=== PATIENT | male | born 1940 | race Caucasian/White ===

== ENCOUNTER 2017-04-14 15:32 | Emergency (ER) | payer OTHER ==
[2017-04-14 15:35] VITALS: Ht 177.8 cm
[2017-04-14] MEDS ORDERED: ONDANSETRON INJ 2 MG/ML 2 ML VIAL IV STA (16:10)
[2017-04-14] MEDS ORDERED: ACETAMINOPHEN 500 MG TAB PO STA (16:10)
[2017-04-14] MEDS ORDERED: KETOROLAC TROMETHAMINE 30 MG/ML VIAL IV STA (16:10)
--- NOTE | 2017-04-14 16:21 | EMERGENCY ROOM VISIT NOTE ---
History Report prepared by Charlie: Oscar Hua Under the Supervision of: Dr. Jose A Romano M.D. First contact with patient: 16:04 Chief Complaint: FLANK PAIN Stated Complaint: LOWER LEFT BACK PAIN History of Present Illness The patient is a 77 year old male who presents to the Emergency Room with complaints of constant lower left back pain that began 13 hours ago when the patient was trying to get out of bed to urinate. He describes the pain as an 8/ 10 in severity. Patient states that the pain is exacerbated when walking and when trying to get up from a seated or lying down position. He denies the pain being worse with pressure. He has associated symptoms of diaphoresis when he woke up. In addition, he adds that he has had painful urination. Patient adds that he has taken Aleve but it has not resolved his symptoms. He states his last dose of Aleve was 6 hours ago. He denies associated symptoms of nausea, vomiting, or recent trauma to the area. Pertinent medical history includes a colostomy. He denies a history of kidney stones. Source of History: patient Onset: 13 hours ago Position: back (lower) Modifying Factors (Worsening): movement (Walking and getting up) Associated Symptoms: + diaphoresis, + urinary symptoms (Painful urination), No chills, No nausea, No vomiting Note: Patient denies recent trauma to the area. Review of Systems See HPI for pertinent positives & negatives. A total of 10 systems reviewed and were otherwise negative. Past Medical & Surgical Medical Problems: (1) Colostomy present Family History No pertinent family medical history. Social History Smoking Status: Never Smoker Current/Historical Medications Scheduled Aspirin ([facility] Low Dose Aspiri), 81 MG PO DAILY Atenolol (Tenormin), 75 MG PO DAILY Cefdinir (Omnicef), 300 MG PO Q12H Chlorthalidone (Chlorthalidone), 25 MG PO DAILY Finasteride (Finasteride), 5 MG PO DAILY Glipizide (Glipizide), 2.5 MG PO BID Losartan Potassium (Cozaar), 100 MG PO DAILY Metformin Hcl (Glucophage), 500 MG PO TID Potassium Ext Rel (Klor-Con), 60 MEQ PO DAILY Tamsulosin Hcl (Flomax), 0.4 MG PO DAILY Allergies Coded Allergies: YUMIKO Inhibitors (Unverified Adverse Reaction, Intermediate, COUGH, 04/14/17) Physical Exam Vital Signs Date Time Temp Pulse Resp B/P (MAP) Pulse Ox O2 Delivery O2 Flow Rate FiO2 04/14/17 15:35 36.7 71 20 128/66 94 Room Air Physical Exam GENERAL: Patient is in no acute distress. HEENT: No acute trauma, normocephalic atraumatic, mucous membranes moist, no nasal congestion, no scleral icterus. NECK: No stridor, no adenopathy, no meningismus, trachea is midline. LUNGS: Clear to auscultation bilaterally, no wheeze, no rhonchi, breath sounds equal. HEART: Without murmurs gallops or rubs, regular rate and rhythm. BACK: Muscle spasm noted to left lumbar region, no rash seen, pain worsens with movement, no flank discomfort to percussion ABDOMEN: Soft, nontender, bowel sounds positive, no hernias, no peritonitis. Colostomy present. EXTREMITIES: No edema, some mild pain with movement of left hip, no gross deformity, no evidence of cellulitis NEUROLOGIC: Oriented x 3, no acute motor or sensory deficits, no focal weakness. SKIN: No rash, no jaundice, no diaphoresis. Medical Decision & Procedures ER Provider Diagnostic Interpretation: Radiology results as stated below per my review and radiologist interpretation: PELVIS ONE VIEW, LEFT HIP 2 VIEWS CLINICAL HISTORY: Left pelvic/hip pain. COMPARISON STUDY: None. FINDINGS: No fracture or dislocation within the pelvis or hips. 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 The sacrum appears intact. IMPRESSION: No fracture or dislocation within the pelvis or hips. Electronically signed by: Adonay Anderson M.D. 04/14/2017 5:11 PM [address]OMEN AND PELVIS CT WITHOUT CONTRAST CT DOSE: 1564.48 mGy.cm HISTORY: Left flank pain. TECHNIQUE: Multiaxial CT images of the abdomen and pelvis were performed without the use of intravenous and oral contrast according to the standard department stone protocol. A dose lowering technique was utilized adhering to the principles of ALARA. COMPARISON STUDY: None. FINDINGS: Mild interstitial thickening at the lung bases. This is likely chronic. A 4 mm indeterminate pulmonary nodule within the left lower lobe on image 39. No acute fractures within the visualized osseous structures. Small hiatus hernia. The unenhanced liver, spleen, left adrenal gland, and pancreas are unremarkable. No retroperitoneal lymphadenopathy. A 2.3 cm benign adenoma within the right adrenal gland. No renal or ureteral calculi. No hydronephrosis. Bilateral renal hypodense lesions within the largest on the left measuring 7.7 cm. These are incompletely characterize on this noncontrast study but persists. Mild bilateral perinephric edema. Small urachal diverticulum measuring 1 cm. No definite bowel wall thickening or obstruction. Normal appendix. There is been resection of the distal colon/rectum with a right lower quadrant colostomy. There is a peristomal hernia containing multiple loops of nondilated small bowel. IMPRESSION: 1. No renal or ureteral calculi. No hydronephrosis. 2. Mild bilateral perinephric edema. This could be chronic or due to an infectious process. Recommend correlation with urinalysis. 3. Postoperative changes as described above. There is an associated right peristomal hernia. 4. No definite bowel wall thickening or obstruction. 5. Normal appendix. 6. A 1 cm urachal diverticulum. 7. A 4 mm indeterminate pulmonary nodule within the left lower lobe. Please refer to the chart below for recommended follow-up. AP digital findings as described above. Please refer to below summary of Fleischner criteria recommendations for follow-up of incidental CT nodules (Aakash De La Rosa, Guidelines for management of small pulmonary nodules detected on CT scans: A statement from the Fleischner Society, Radiology 237: [phone].) SOLID NODULES Solitary nodule size: <6 mm * Low risk patients: no follow-up needed * high risk patients: optional CT at 12 months Solitary nodule size: 6-8 mm * Low risk patients: follow-up at 6-12 months, then consider further follow-up at 18-24 months * high risk patients: initial follow-up CT at 6-12 months and then at 18-24 months if no change Solitary nodule size: >8 mm * either low or high risk patients - consider follow-up CT at 3 months, and/or CT-PET, and/or biopsy Multiple nodules size: <6 mm * Low risk patients: no routine follow-up * high risk patients: optional CT at 12 months Multiple nodules size: 6-8 mm * Low risk patients: follow-up at 3-6 months, then consider further follow-up at 18-24 months * high risk patients: follow-up at 3-6 months, then at 18-24 months if no change Multiple nodules size: >8 mm * Low risk patients: follow-up at 3-6 months, then consider further follow-up at 18-24 months * high risk patients: follow-up at 3-6 months, then at 18-24 months if no change Note: newly detected indeterminate nodule in persons 35 years of age or older. * Low risk patients: minimal or absent history of smoking and/or other known risk factors * high risk patients: history of smoking or of other known risk factors (e.g. first degree relative with lung cancer, or exposure to asbestos, radon, uranium) * if a nodule up to 8 mm is partly solid or is ground glass further follow-up is required after 24 months to exclude possible slow growing adenocarcinoma (CYRUS) SUBSOLID NODULES Solitary pure ground-glass nodule * nodule size <6 mm - no CT follow-up required * nodule size >=6 mm - follow-up CT at 6-12 months, then every 2 years until 5 years Solitary part-solid nodule * nodule size <6 mm - no CT follow-up required * nodule size >=6 mm - follow-up CT at 3-6 months. If unchanged, and solid component remains <6 mm, then annual follow-up for 5 years Multiple subsolid nodules * nodule size <6 mm - follow-up CT at 3-6 months, consider further follow-up at 2 and 4 years if stable * nodule size >=6 mm - follow-up CT at 3-6 months, subsequent management based on the most suspicious nodule(s) Electronically signed by: Adonay Anderson M.D. 04/14/2017 5:33 PM Laboratory Results 04/14/17 16:45 Red Blood Count 4.69, Mean Corpuscular Volume 90.2, Mean Corpuscular Hemoglobin 30.9, Mean Corpuscular Hemoglobin Concent 34.3, Mean Platelet Volume 9.6, Neutrophils (%) (Auto) 92.4, Lymphocytes (%) (Auto) 2.0, Monocytes (%) (Auto) 5.0, Eosinophils (%) (Auto) 0.1, Basophils (%) (Auto) 0.1, Neutrophils # (Auto) 13.55, Lymphocytes # (Auto) 0.30, Monocytes # (Auto) 0.74, Eosinophils # (Auto) 0.01, Basophils # (Auto) 0.02 04/14/17 16:45 Test 04/14/17 16:25 04/14/17 16:45 Urine Color DK YELLOW Urine Appearance CLOUDY (CLEAR) Urine pH 5.0 (4.5-7.5) Urine Specific [place] 1.022 (1.000-1.030) Urine Protein NEG (NEG) Urine Glucose (UA) NEG (NEG) Urine Ketones TRACE (NEG) Urine Occult Blood 1+ (NEG) Urine Nitrite POS (NEG) Urine Bilirubin NEG (NEG) Urine Urobilinogen NEG (NEG) Urine Leukocyte Esterase LARGE (NEG) Urine WBC (Auto) >30 /hpf (0-5) Urine RBC (Auto) 0-4 /hpf (0-4) Urine Hyaline Casts (Auto) 1-5 /lpf (0-5) Urine Epithelial Cells (Auto) 10-20 /lpf (0-5) Urine Bacteria (Auto) 4+ (NEG) White Blood Count 14.68 K/uL (4.8-10.8) Red Blood Count 4.69 M/uL (4.7-6.1) Hemoglobin 14.5 g/dL (14.0-18.0) Hematocrit 42.3 % (42-52) Mean Corpuscular Volume 90.2 fL (80-100) Mean Corpuscular Hemoglobin 30.9 pg (25-34) Mean Corpuscular Hemoglobin Concent 34.3 g/dl (32-36) Platelet Count 219 K/uL (130-400) Mean Platelet Volume 9.6 fL (7.4-10.4) Neutrophils (%) (Auto) 92.4 % Lymphocytes (%) (Auto) 2.0 % Monocytes (%) (Auto) 5.0 % Eosinophils (%) (Auto) 0.1 % Basophils (%) (Auto) 0.1 % Neutrophils # (Auto) 13.55 K/uL (1.4-6.5) Lymphocytes # (Auto) 0.30 K/uL (1.2-3.4) Monocytes # (Auto) 0.74 K/uL (0.11-0.59) Eosinophils # (Auto) 0.01 K/uL (0-0.5) Basophils # (Auto) 0.02 K/uL (0-0.2) RDW Standard Deviation 44.7 fL (36.4-46.3) RDW Coefficient of Variation 13.6 % (11.5-14.5) Immature Granulocyte % (Auto) 0.4 % Immature Granulocyte # (Auto) 0.06 K/uL (0.00-0.02) Dohle Bodies 1+ Anion Gap 12.0 mmol/L (3-11) Estimated GFR () 63.8 Estimated GFR (Non- 55.0 BUN/Creatinine Ratio 18.7 (10-20) Calcium Level 9.3 mg/dl (8.5-10.1) Lipase 146 U/L (73-393) Laboratory results reviewed by me. Medications Administered Medications (Trade) Dose Ordered Sig/Faith Route Start Time Stop Time Status Last Admin Dose Admin Ondansetron HCl (Zofran Inj) 4 mg NOW STAT IV 04/14/17 16:10 04/14/17 16:12 DC 04/14/17 17:13 4 MG Ketorolac Tromethamine (Toradol Inj) 30 mg NOW STAT IV 04/14/17 16:10 04/14/17 16:12 DC 04/14/17 17:13 30 MG Acetaminophen (Tylenol Tab) 1,000 mg NOW STAT PO 04/14/17 16:10 04/14/17 16:12 DC 04/14/17 17:13 1,000 MG Ceftriaxone Sodium (Rocephin Inj) 1 gm NOW STAT IV 04/14/17 17:08 04/14/17 17:09 DC 04/14/17 17:43 1 GM ED Course 1605: The patient was evaluated in room B10. A complete history and physical exam was performed. 1610: Tylenol Tab 1000mg PO, Toradol Inj 30mg IV, Zofran In 4mg IV 1708: Rocephin Inj 1gm IV 1750: Reevaluated the patient. Discussed results and discharge instructions. He verbalized understanding and agreement. The patient is ready for discharge. Medical Decision Differential Diagnosis: Musculoskeletal pain, nerve impingement, shingles, fracture, arthritis, UTI, pyelonephritis, renal colic There is a moderate leukocytosis at 14,000, this could be consistent with infection. No concerning anemia. No significant electrolyte abnormality or kidney failure. Urinalysis is suggestive of infection, urine culture is pending. Abdominal and pelvis CT shows some renal cysts. Pyelonephritis was suspected by the CT. No bowel obstruction. No evidence for ureteral stone. Films of the left hip and pelvis don't show fracture or significant arthritis. The patient is not currently febrile, he is not hypotensive or tachycardic. He is not vomiting, he feels well. The patient would like to go home. The patient was given IV Toradol, oral Tylenol, IV Zofran and IV ceftriaxone. As he is doing well, I think outpatient treatment for this pyelonephritis would be reasonable. The patient will be placed on Omnicef twice a day for 10 days. He will see his doctor this week for a recheck. He has agreed to return here for fevers, worsening symptoms, vomiting or if not improving. His family is happy with this plan as well. Medication Reconcilliation Current Medication List: was personally reviewed by me Blood Pressure Screening Patient's blood pressure: Normal blood pressure Blood pressure disposition: Did not require urgent referral Impression Primary Impression: Pyelonephritis Additional Impression: Left flank pain Scribe Attestation The scribe's documentation has been prepared under my direction and personally reviewed by me in its entirety. I confirm that the note above accurately reflects all work, treatment, procedures, and medical decision making performed by me. Departure Information Dispostion Home / Self-Care Prescriptions Cefdinir (OMNICEF) 300 Mg Cap 300 MG PO Q12H for 10 Days, #20 CAP Prov: Jose A Romano M.D. 04/14/17 Referrals No Doctor, Assigned (PCP) Forms HOME CARE DOCUMENTATION FORM, IMPORTANT VISIT INFORMATION Patient Instructions My [facility] [place] [facility] Additional Instructions stay well hydrated tylenol or motrin for pain warm compresses or heating pad may help use omnicef 2x per day for 10 days see daisy md in a few days return for worsening symptoms or if not improving as we discussed see urologist for a check up in 1-2 weeks Problem Qualifiers
[2017-04-14 17:06] LABS: HEMATOCRIT 42.3 % (42-52); HEMOGLOBIN 14.5 g/dL (14.0-18.0); MEAN CELL VOLUME 90.2 fL (80-100); MEAN CORPUSCULAR HEMOGLOBIN 30.9 pg (25-34); MEAN CORPUSCULAR HGB CONC 34.3 g/dl (32-36); MEAN PLATELET VOLUME 9.6 fL (7.4-10.4); PLATELET COUNT 219 K/uL (130-400); RED CELL DISTRIBUTION WIDTH CV 13.6 % (11.5-14.5); RED CELL DISTRIBUTION WIDTH SD 44.7 fL (36.4-46.3); WHITE BLOOD COUNT 14.68 K/uL (4.8-10.8)
[2017-04-14] MEDS ORDERED: CEFTRIAXONE SOD INJ 1 GM ADDVIAL IV STA (17:08)
--- NOTE | 2017-04-14 17:12 | DIAGNOSTIC IMAGING REPORT ---
PELVIS ONE VIEW, LEFT HIP 2 VIEWS CLINICAL HISTORY: Left pelvic/hip pain. COMPARISON STUDY: None. FINDINGS: No fracture or dislocation within the pelvis or hips. 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 The sacrum appears intact. IMPRESSION: No fracture or dislocation within the pelvis or hips. Electronically signed by: Adonay Anderson M.D. 04/14/2017 5:11 PM Dictated Date/Time: 04/14/2017 5:08 PM
[2017-04-14 17:21] LABS: BLOOD UREA NITROGEN 24 mg/dl (7-18); CALCIUM 9.3 mg/dl (8.5-10.1); CARBON DIOXIDE 23 mmol/L (21-32); CREATININE 1.26 mg/dl (0.60-1.40); GLUCOSE 122 mg/dl (70-99); LIPASE 146 U/L (73-393); POTASSIUM 3.7 mmol/L (3.5-5.1); SODIUM 134 mmol/L (136-145)
[2017-04-14 17:28] LABS: BASO % 0.1 %; BASO ABS # 0.02 K/uL (0-0.2); EOS % 0.1 %; EOS ABS # 0.01 K/uL (0-0.5); IG# 0.06 K/uL (0.00-0.02); MONO ABS # 0.74 K/uL (0.11-0.59); NEUT % 92.4 %; NEUT ABS # 13.55 K/uL (1.4-6.5)
--- NOTE | 2017-04-14 17:34 | DIAGNOSTIC IMAGING REPORT ---
ABDOMEN AND PELVIS CT WITHOUT CONTRAST CT DOSE: 1564.48 mGy.cm HISTORY: Left flank pain. TECHNIQUE: Multiaxial CT images of the abdomen and pelvis were performed without the use of intravenous and oral contrast according to the standard department stone protocol. A dose lowering technique was utilized adhering to the principles of ALARA. COMPARISON STUDY: None. FINDINGS: Mild interstitial thickening at the lung bases. This is likely chronic. A 4 mm indeterminate pulmonary nodule within the left lower lobe on image 39. No acute fractures within the visualized osseous structures. Small hiatus hernia. The unenhanced liver, spleen, left adrenal gland, and pancreas are unremarkable. No retroperitoneal lymphadenopathy. A 2.3 cm benign adenoma within the right adrenal gland. No renal or ureteral calculi. No hydronephrosis. Bilateral renal hypodense lesions within the largest on the left measuring 7.7 cm. These are incompletely characterize on this noncontrast study but persists. Mild bilateral perinephric edema. Small urachal diverticulum measuring 1 cm. No definite bowel wall thickening or obstruction. Normal appendix. There is been resection of the distal colon/rectum with a right lower quadrant colostomy. There is a peristomal hernia containing multiple loops of nondilated small bowel. IMPRESSION: 1. No renal or ureteral calculi. No hydronephrosis. 2. Mild bilateral perinephric edema. This could be chronic or due to an infectious process. Recommend correlation with urinalysis. 3. Postoperative changes as described above. There is an associated right peristomal hernia. 4. No definite bowel wall thickening or obstruction. 5. Normal appendix. 6. A 1 cm urachal diverticulum. 7. A 4 mm indeterminate pulmonary nodule within the left lower lobe. Please refer to the chart below for recommended follow-up. AP digital findings as described above. Please refer to below summary of Fleischner criteria recommendations for follow-up of incidental CT nodules (Aakash De La Rosa, Guidelines for management of small pulmonary nodules detected on CT scans: A statement from the Fleischner Society, Radiology 237: [phone].) SOLID NODULES Solitary nodule size: <6 mm * Low risk patients: no follow-up needed * high risk patients: optional CT at 12 months Solitary nodule size: 6-8 mm * Low risk patients: follow-up at 6-12 months, then consider further follow-up at 18-24 months * high risk patients: initial follow-up CT at 6-12 months and then at 18-24 months if no change Solitary nodule size: >8 mm * either low or high risk patients - consider follow-up CT at 3 months, and/or CT-PET, and/or biopsy Multiple nodules size: <6 mm * Low risk patients: no routine follow-up * high risk patients: optional CT at 12 months Multiple nodules size: 6-8 mm * Low risk patients: follow-up at 3-6 months, then consider further follow-up at 18-24 months * high risk patients: follow-up at 3-6 months, then at 18-24 months if no change Multiple nodules size: >8 mm * Low risk patients: follow-up at 3-6 months, then consider further follow-up at 18-24 months * high risk patients: follow-up at 3-6 months, then at 18-24 months if no change Note: newly detected indeterminate nodule in persons 35 years of age or older. * Low risk patients: minimal or absent history of smoking and/or other known risk factors * high risk patients: history of smoking or of other known risk factors (e.g. first degree relative with lung cancer, or exposure to asbestos, radon, uranium) * if a nodule up to 8 mm is partly solid or is ground glass further follow-up is required after 24 months to exclude possible slow growing adenocarcinoma (CYRUS) SUBSOLID NODULES Solitary pure ground-glass nodule * nodule size <6 mm - no CT follow-up required * nodule size >=6 mm - follow-up CT at 6-12 months, then every 2 years until 5 years Solitary part-solid nodule * nodule size <6 mm - no CT follow-up required * nodule size >=6 mm - follow-up CT at 3-6 months. If unchanged, and solid component remains <6 mm, then annual follow-up for 5 years Multiple subsolid nodules * nodule size <6 mm - follow-up CT at 3-6 months, consider further follow-up at 2 and 4 years if stable * nodule size >=6 mm - follow-up CT at 3-6 months, subsequent management based on the most suspicious nodule(s) Electronically signed by: Adonay Anderson M.D. 04/14/2017 5:33 PM Dictated Date/Time: 04/14/2017 5:20 PM
[2017-04-14] MEDS ORDERED: POTA20TA16 PO (17:40)
[2017-04-14] MEDS ORDERED: ATEN-173 PO (17:40)
[2017-04-14] MEDS ORDERED: GLC5 PO (17:40)
[2017-04-14] MEDS ORDERED: TAMS0.4C38 PO (17:40)
[2017-04-14] MEDS ORDERED: GLC/500 PO (17:40)
[2017-04-14] MEDS ORDERED: HYG25 PO (17:40)
[2017-04-14] MEDS ORDERED: LOSA1TAB38 PO (17:40)
[2017-04-14] MEDS ORDERED: PRS5 PO (17:40)
[2017-04-14] MEDS ORDERED: ASPI81CH PO (17:40)
[2017-04-14] MEDS ORDERED: CEFD300C2 PO (18:19)
[2017-04-14 18:45] VITALS: BP 105/50; PULSE 57; TEMP 36.8; O2SAT 95
--- NOTE | 2017-04-16 12:05 | Pharmacy Progress Note ---
ED Pharmacist Culture FollowUp Date of Service: Apr 16, 2017. Patient was sent home with a prescription for cefdinir 300mg BID X 10 days, which should cover the E. Coli growing from the patient's urine culture.
== END 2017-04-14 18:47 | disposition home or self-care (01) ==
LOC: C.EDB 15:33
DX: N12 Tubulo-interstitial nephritis, not specified as acute or chronic (principal); R10.9 Unspecified abdominal pain; Z93.3 Colostomy status; Z79.82 Long term (current) use of aspirin; Z79.899 Other long term (current) drug therapy

== ENCOUNTER 2017-04-17 12:12 | Emergency (ER) | payer OTHER ==
[~2017-04-17] VITALS: Ht 177.8 cm; Wt 100.0 kg
[~2017-04-17 12:12] MED LIST: ASPI81CH PO; ATEN-173 PO; CEFD300C2 PO; GLC/500 PO; GLC5 PO; HYG25 PO; LOSA1TAB38 PO; POTA20TA16 PO; PRS5 PO; TAMS0.4C38 PO
[2017-04-17 12:26] VITALS: TEMP 36.8; Ht 177.8 cm; Wt 100.0 kg
[2017-04-17] MEDS ORDERED: ONDANSETRON INJ 2 MG/ML 2 ML VIAL IV STA (12:58)
[2017-04-17] MEDS ORDERED: HYDROmorphone INJ 1 MG/ML SYR IV STA (12:58)
--- NOTE | 2017-04-17 12:59 | EMERGENCY ROOM VISIT NOTE ---
History Report prepared by Charlie: Jordon Khalil Under the Supervision of: Dr. Constantino Watson M.D. First contact with patient: 12:48 Chief Complaint: CALF PAIN Stated Complaint: UTI, STIFFNESS IN LEFT SIDE History of Present Illness The patient is a 77 year old male who presents to the Emergency Room with complaints of intermittent left calf pain that began recently. He rates his pain a 10/10 in severity. The patient was recently here in the ER for treatment for a UTI. He notes that his UTI symptoms are improving. However, recently the patient has been experiencing a pain to his left calf up to his left lower back/ hip whenever he tries to move his leg. He describes this feeling as a cramp. He denies any abdominal pain and has an ostomy in place. He also denies any weakness. He is having difficulty ambulating secondary to his pain. He denies any fevers, chills, chest pain, shortness of breath, nausea, vomiting, numbness , or any other abnormal symptoms. Source of History: patient Onset: recently Position: leg (left calf) Symptom Intensity: 10/10 Quality: other (cramp) Timing: intermittent Modifying Factors (Worsening): movement Modifying Factors (Relieving): rest Associated Symptoms: No fevers, No chills, No chest pain, No SOB, No nausea , No vomiting, No abdominal pain, No urinary symptoms, No weakness Review of Systems See HPI for pertinent positives & negatives. A total of 10 systems reviewed and were otherwise negative. Past Medical & Surgical Medical Problems: (1) Colostomy present Family History Omitted secondary to the patient's age. Social History Smoking Status: Never Smoker Smokeless Tobacco Use: No Drug Use: none Marital Status: Housing Status: lives with significant other Occupation Status: retired Current/Historical Medications Scheduled Aspirin ([facility] [place] Low Dose Aspiri), 81 MG PO DAILY Atenolol (Tenormin), 75 MG PO DAILY Cefdinir (Omnicef), 300 MG PO Q12H Chlorthalidone (Chlorthalidone), 25 MG PO DAILY Docusate Sodium (Colace), 1 CAP PO BID Finasteride (Finasteride), 5 MG PO DAILY Glipizide (Glipizide), 2.5 MG PO BID Lidocaine (Lidocaine), 1 PATCH TD DAILY Losartan Potassium (Cozaar), 100 MG PO DAILY Metformin Hcl (Glucophage), 500 MG PO TID Potassium Ext Rel (Klor-Con), 60 MEQ PO DAILY Sennosides (Senokot), 8.6 MG PO HS Tamsulosin Hcl (Flomax), 0.4 MG PO DAILY Scheduled PRN Oxycodone Immediate Rel Tab (Roxicodone Ir), 1-2 TAB PO Q4H PRN for Severe Pain Allergies Coded Allergies: YUMIKO Inhibitors (Unverified Adverse Reaction, Intermediate, COUGH, 04/17/17) Physical Exam Vital Signs Date Time Temp Pulse Resp B/P (MAP) Pulse Ox O2 Delivery O2 Flow Rate FiO2 04/17/17 15:17 54 132/68 94 04/17/17 12:52 64 04/17/17 12:26 36.8 58 20 147/87 95 Physical Exam GENERAL: Patient is a healthy-appearing well-nourished male HEAD: Normocephalic atraumatic EYES: Ocular movements intact pupils equal and react to light OROPHARYNX mucous membranes are moist no exudates present no erythema or edema present NECK: Supple no nuchal rigidity CHEST: Good equal expansion LUNGS: Clear and equal to auscultation CARDIAC: Normal S1 and S2 ABDOMEN: Soft nontender no guarding, ostomy in place BACK: No CVA tenderness EXTREMITIES: No pain upon palpation normal muscle strength in all groups no clubbing cyanosis or edema NEURO: Patient is following commands and answering questions appropriately. Alert and oriented x3 Cranial Nerves 2-12 grossly intact Medical Decision & Procedures ER Provider Diagnostic Interpretation: Radiology results as stated below per my review and radiologist interpretation: LUMBAR SPINE WITHOUT CT DOSE: HISTORY: Back pain Pt c/o left sided pain TECHNIQUE: Multiaxial CT images of the lumbar spine were performed and reformatted in the sagittal and coronal plane without the use of contrast. A dose lowering technique was utilized adhering to the principles of ALARA. COMPARISON: None. FINDINGS: Mild degenerative intervertebral disc changes throughout. Mild degenerative sclerosis of posterior facets. No fractures. No subluxation. Paraspinal soft tissues are unremarkable. L1-L2: Negative L2-L3: Minimal broad-based disc bulge. Minimal impact anterior thecal sac. L3-L4: Negative. L4-L5: Broad-based bulging disc creating rather mcmillan mild multifactorial narrowing of the spinal canal. Moderate narrowing left neuroforamina mild narrowing of the right neuroforamina. Moderate osteophytic narrowing left neuroforamina. Mild multifactorial narrowing of spinal canal. L5-S1: Moderate bilateral foraminal narrowing secondary to osteophytic reaction. Minimal broad-based disc bulge with no significant impact upon the thecal sac. IMPRESSION: 1. Broad-based bulging disc L4-L5 creating mild multifactorial narrowing of spinal canal. 2. L4-L5 is also remarkable for moderate narrowing of the left neural foramina and mild narrowing of the right neuroforamina on an osteophytic bases. 3. Moderate bilateral foraminal narrowing at L5-S1 secondary to osteophytic reaction. The above report was generated using voice recognition software. It may contain grammatical, syntax or spelling errors. Electronically signed by: Haseeb Mills M.D. 04/17/2017 1:40 PM Dictated Date/Time: 04/17/2017 1:[address] PELVIS NO IV/ORAL CONT (CT) CT DOSE: 2370.09 mGy.cm CLINICAL HISTORY: Severe left-sided hip pain TECHNIQUE: Unenhanced images were obtained through the pelvis and left hip. Multiplane are reformatted images were reviewed. A dose lowering technique was utilized adhering to the principles of ALARA. COMPARISON STUDY: CT scan the abdomen pelvis dated 04/14/2017 FINDINGS: There is a partially visualized right lower quadrant parastomal hernia. There is a 7.2 cm left renal cyst. The prostate is enlarged measuring 15 mm. There is a small urachal diverticulum arising from the anterior dome of the bladder. No acute pelvic fractures are visualized. There is right anterior SI joint sclerosis. There is fragmentation of the anterior aspect of the right sacrum, finding which is felt to be chronic and unchanged from the preceding study. There is no evidence of SI joint diastases. There is no evidence of symphysis pubis diastases. There are mild osteoarthritic changes involving the left hip. No destructive lesions are visualized. There is a small disc osteophyte complex at the L5-S1 level. There is mild facet joint fragmentation. There are few nonspecific subcentimeter sclerotic lesions. In the absence of a primary malignancy these likely represent bone islands. IMPRESSION: 1. No evidence of occult left hip fracture 2. Mild osteoarthritic changes involving the left hip 3. No destructive lesions are visualized. Electronically signed by: Joe Mcclelland M.D. 04/17/2017 1:28 PM Dictated Date/Time: 04/17/2017 1:23 PM L FEMUR 2 VIEWS ROUTINE CLINICAL HISTORY: Left hip pain. COMPARISON: None FINDINGS: No acute fracture of the left femur is identified. Alignment of the left hip and knee is anatomic. There is mild osteoarthritis of the left hip. IMPRESSION: 1. No acute fracture of the left femur. 2. Mild osteoarthritis of the left hip. Electronically signed by: Saul Rodríguez M.D. 04/17/2017 1:54 PM Dictated Date/Time: 04/17/2017 1:53 PM L VENOUS DOPP LOWER EXT UNILAT HISTORY: 77 years-old Male Pt c/o left leg pain acute left leg pain COMPARISON: None available TECHNIQUE: Multiple real-time sonographic images of the left lower extremity deep venous structures were obtained assessing grayscale appearance, color and spectral flow. FINDINGS: Flow flow is noted throughout the common femoral and popliteal veins, likely incidental. There is normal compressibility, phasicity and augmentation throughout the deep venous structures without evidence of thrombus. IMPRESSION: No sonographic evidence of deep venous thrombosis. The above report was generated using voice recognition software. It may contain grammatical, syntax or spelling errors. Electronically signed by: Pablo Rosales M.D. 04/17/2017 2:08 PM Dictated Date/Time: 04/17/2017 2:06 PM Laboratory Results 04/17/17 13:05 Red Blood Count 4.34, Mean Corpuscular Volume 89.6, Mean Corpuscular Hemoglobin 30.9, Mean Corpuscular Hemoglobin Concent 34.4, Mean Platelet Volume 9.9, Neutrophils (%) (Auto) 80.4, Lymphocytes (%) (Auto) 8.3, Monocytes (%) (Auto) 9.3, Eosinophils (%) (Auto) 0.5, Basophils (%) (Auto) 0.4, Neutrophils # (Auto) 8.57, Lymphocytes # (Auto) 0.89, Monocytes # (Auto) 0.99, Eosinophils # (Auto) 0.05, Basophils # (Auto) 0.04 04/17/17 13:05 Test 04/17/17 13:05 04/17/17 13:31 White Blood Count 10.66 K/uL (4.8-10.8) Red Blood Count 4.34 M/uL (4.7-6.1) Hemoglobin 13.4 g/dL (14.0-18.0) Hematocrit 38.9 % (42-52) Mean Corpuscular Volume 89.6 fL (80-100) Mean Corpuscular Hemoglobin 30.9 pg (25-34) Mean Corpuscular Hemoglobin Concent 34.4 g/dl (32-36) Platelet Count 224 K/uL (130-400) Mean Platelet Volume 9.9 fL (7.4-10.4) Neutrophils (%) (Auto) 80.4 % Lymphocytes (%) (Auto) 8.3 % Monocytes (%) (Auto) 9.3 % Eosinophils (%) (Auto) 0.5 % Basophils (%) (Auto) 0.4 % Neutrophils # (Auto) 8.57 K/uL (1.4-6.5) Lymphocytes # (Auto) 0.89 K/uL (1.2-3.4) Monocytes # (Auto) 0.99 K/uL (0.11-0.59) Eosinophils # (Auto) 0.05 K/uL (0-0.5) Basophils # (Auto) 0.04 K/uL (0-0.2) RDW Standard Deviation 45.8 fL (36.4-46.3) RDW Coefficient of Variation 13.8 % (11.5-14.5) Immature Granulocyte % (Auto) 1.1 % Immature Granulocyte # (Auto) 0.12 K/uL (0.00-0.02) Anion Gap 8.0 mmol/L (3-11) Est Creatinine Clear Calc Drug Dose 64.8 ml/min Estimated GFR () 71.2 Estimated GFR (Non- 61.5 BUN/Creatinine Ratio 21.7 (10-20) Calcium Level 9.0 mg/dl (8.5-10.1) Total Bilirubin 0.7 mg/dl (0.2-1) Direct Bilirubin 0.2 mg/dl (0-0.2) Aspartate Amino Transf (AST/SGOT) 44 U/L (15-37) Alanine Aminotransferase (ALT/SGPT) 34 U/L (12-78) Alkaline Phosphatase 68 U/L (45-117) Total Protein 7.6 gm/dl (6.4-8.2) Albumin 2.9 gm/dl (3.4-5.0) Lipase 162 U/L (73-393) Urine Color YELLOW Urine Appearance CLEAR (CLEAR) Urine pH 5.5 (4.5-7.5) Urine Specific [place] 1.019 (1.000-1.030) Urine Protein NEG (NEG) Urine Glucose (UA) NEG (NEG) Urine Ketones NEG (NEG) Urine Occult Blood NEG (NEG) Urine Nitrite NEG (NEG) Urine Bilirubin NEG (NEG) Urine Urobilinogen NEG (NEG) Urine Leukocyte Esterase SMALL (NEG) Urine WBC (Auto) 5-10 /hpf (0-5) Urine RBC (Auto) 0-4 /hpf (0-4) Urine Hyaline Casts (Auto) 1-5 /lpf (0-5) Urine Epithelial Cells (Auto) 10-20 /lpf (0-5) Urine Bacteria (Auto) NEG (NEG) Labs reviewed by ED physician. Medications Administered Medications (Trade) Dose Ordered Sig/Faith Route Start Time Stop Time Status Last Admin Dose Admin Hydromorphone HCl (Dilaudid Inj) 1 mg NOW STAT IV 04/17/17 12:58 04/17/17 12:59 DC 04/17/17 13:29 1 MG Ondansetron HCl (Zofran Inj) 4 mg NOW STAT IV 04/17/17 12:58 04/17/17 12:59 DC 04/17/17 13:30 4 MG Lidocaine (Lidoderm Patch 5%) 1 patch NOW STAT TD 04/17/17 14:22 04/17/17 14:23 DC 04/17/17 15:04 1 PATCH ED Course 1248: Past medical records reviewed. The patient was evaluated in room B5. A complete history and physical examination was performed. 1258: Ordered Zofran Inj 4 mg IV, Dilaudid Inj 1 mg IV 1422: Ordered Lidocaine 1 patch TD 1435: Upon reexamination the patient is resting. I offered inpatient care at a rehabilitation hospital, but he refused. I discussed results and treatment plan with the patient. He verbalizes agreement and understanding. The patient is ready for discharge. Medical Decision Differential diagnosis: Etiologies such as appendicitis, diverticulitis, PUD, biliary pathology, UTI, pancreatitis, obstruction, mesenteric ischemia, aortic pathology, infections, inflammatory bowel disease, renal colic, as well as others were entertained. This is a 77-year-old male who presents emergency department complaining of left hip and knee pain. Based on the patient's complaint I strongly suspect it is referred pain from his spine therefore the patient was sent for CT of the L- spine. The patient does have a large amount of spinal stenosis and I suspect that this is the cause of his pain. He was given Dilaudid in the emergency department. Repeat examination revealed improvement patient's symptoms. I did offer admission as well as a rehabilitation stay to the patient however he is adamant that he wants to go home at this point. I stressed the need for follow- up with orthopedic spine. Patient family were in agreement with treatment plan. Medication Reconcilliation Current Medication List: was personally reviewed by me Blood Pressure Screening Patient's blood pressure: Elevated blood pressure Blood pressure disposition: Referred to PCP Impression Primary Impression: Leg pain, left Scribe Attestation The scribe's documentation has been prepared under my direction and personally reviewed by me in its entirety. I confirm that the note above accurately reflects all work, treatment, procedures, and medical decision making performed by me. Departure Information Dispostion Home / Self-Care Prescriptions Docusate Sodium (COLACE) 100 Mg Cap 1 CAP PO BID for 30 Days, #60 CAP Prov: Constantino Watson MD 04/17/17 Sennosides (SENOKOT) 8.6 Mg Tab 8.6 MG PO HS for 30 Days, #30 TAB Prov: Constantino Watson MD 04/17/17 Oxycodone Immediate Rel Tab (ROXICODONE IR) 5 Mg Tab 1-2 TAB PO Q4H Y for Severe Pain, #14 TAB Prov: Constantino Watson MD 04/17/17 Lidocaine (Lidocaine) 1 Patch Tdsy 1 PATCH TD DAILY for 30 Days, #30 PATCH Prov: Constantino Watson MD 04/17/17 Referrals Melissa Sheldon M.D. (MEDICAL) (PCP) Mukesh Cason D.O. Forms HOME CARE DOCUMENTATION FORM, IMPORTANT VISIT INFORMATION, School Instructions, Work Instructions Patient Instructions Ankylosing Spondylitis, My [facility] Additional Instructions Follow up with Dr Cason's office You received narcotic or benzodiazepene medication while in the emergency room today. This is an addictive medication that may cause drowziness as well as constipation. Do not drive, operate heavy machinery, or drink alcohol under the influence of this medication. Take 1000 mg Tylenol every 6 hours Take Oxy IR for breakthrough pain You have been examined and treated today on an emergency basis only. This is not a substitute for, or an effort to provide, complete comprehensive medical care. It is impossible to recognize and treat all injuries or illnesses in a single emergency department visit. It is therefore important that you follow up closely with Dr Sheldon. Call as soon as possible for an appointment. Thank you for your time and consideration. I look forward to speaking with you again soon. Please don't hesitate to call us if you have any questions.
[2017-04-17 13:20] LABS: BASO % 0.4 %; BASO ABS # 0.04 K/uL (0-0.2); EOS % 0.5 %; EOS ABS # 0.05 K/uL (0-0.5); HEMATOCRIT 38.9 % (42-52); HEMOGLOBIN 13.4 g/dL (14.0-18.0); IG# 0.12 K/uL (0.00-0.02); LYMPH % 8.3 %; LYMPH ABS # 0.89 K/uL (1.2-3.4); MEAN CELL VOLUME 89.6 fL (80-100); MEAN CORPUSCULAR HEMOGLOBIN 30.9 pg (25-34); MEAN CORPUSCULAR HGB CONC 34.4 g/dl (32-36); MEAN PLATELET VOLUME 9.9 fL (7.4-10.4); MONO % 9.3 %; MONO ABS # 0.99 K/uL (0.11-0.59); NEUT % 80.4 %; NEUT ABS # 8.57 K/uL (1.4-6.5); PLATELET COUNT 224 K/uL (130-400); RED CELL DISTRIBUTION WIDTH CV 13.8 % (11.5-14.5); RED CELL DISTRIBUTION WIDTH SD 45.8 fL (36.4-46.3); WHITE BLOOD COUNT 10.66 K/uL (4.8-10.8)
--- NOTE | 2017-04-17 13:29 | DIAGNOSTIC IMAGING REPORT ---
CT PELVIS NO IV/ORAL CONT (CT) CT DOSE: 2370.09 mGy.cm CLINICAL HISTORY: Severe left-sided hip pain TECHNIQUE: Unenhanced images were obtained through the pelvis and left hip. Multiplane are reformatted images were reviewed. A dose lowering technique was utilized adhering to the principles of ALARA. COMPARISON STUDY: CT scan the abdomen pelvis dated 04/14/2017 FINDINGS: There is a partially visualized right lower quadrant parastomal hernia. There is a 7.2 cm left renal cyst. The prostate is enlarged measuring 15 mm. There is a small urachal diverticulum arising from the anterior dome of the bladder. No acute pelvic fractures are visualized. There is right anterior SI joint sclerosis. There is fragmentation of the anterior aspect of the right sacrum, finding which is felt to be chronic and unchanged from the preceding study. There is no evidence of SI joint diastases. There is no evidence of symphysis pubis diastases. There are mild osteoarthritic changes involving the left hip. No destructive lesions are visualized. There is a small disc osteophyte complex at the L5-S1 level. There is mild facet joint fragmentation. There are few nonspecific subcentimeter sclerotic lesions. In the absence of a primary malignancy these likely represent bone islands. IMPRESSION: 1. No evidence of occult left hip fracture 2. Mild osteoarthritic changes involving the left hip 3. No destructive lesions are visualized. Electronically signed by: Joe Mcclelland M.D. 04/17/2017 1:28 PM Dictated Date/Time: 04/17/2017 1:23 PM
[2017-04-17 13:37] LABS: ALBUMIN 2.9 gm/dl (3.4-5.0); CREATININE 1.15 mg/dl (0.60-1.40); POTASSIUM 3.7 mmol/L (3.5-5.1)
[2017-04-17 13:40] LABS: TOTAL PROTEIN 7.6 gm/dl (6.4-8.2)
--- NOTE | 2017-04-17 13:41 | DIAGNOSTIC IMAGING REPORT ---
LUMBAR SPINE WITHOUT CT DOSE: HISTORY: Back pain Pt c/o left sided pain TECHNIQUE: Multiaxial CT images of the lumbar spine were performed and reformatted in the sagittal and coronal plane without the use of contrast. A dose lowering technique was utilized adhering to the principles of ALARA. COMPARISON: None. FINDINGS: Mild degenerative intervertebral disc changes throughout. Mild degenerative sclerosis of posterior facets. No fractures. No subluxation. Paraspinal soft tissues are unremarkable. L1-L2: Negative L2-L3: Minimal broad-based disc bulge. Minimal impact anterior thecal sac. L3-L4: Negative. L4-L5: Broad-based bulging disc creating rather mcmillan mild multifactorial narrowing of the spinal canal. Moderate narrowing left neuroforamina mild narrowing of the right neuroforamina. Moderate osteophytic narrowing left neuroforamina. Mild multifactorial narrowing of spinal canal. L5-S1: Moderate bilateral foraminal narrowing secondary to osteophytic reaction. Minimal broad-based disc bulge with no significant impact upon the thecal sac. IMPRESSION: 1. Broad-based bulging disc L4-L5 creating mild multifactorial narrowing of spinal canal. 2. L4-L5 is also remarkable for moderate narrowing of the left neural foramina and mild narrowing of the right neuroforamina on an osteophytic bases. 3. Moderate bilateral foraminal narrowing at L5-S1 secondary to osteophytic reaction. The above report was generated using voice recognition software. It may contain grammatical, syntax or spelling errors. Electronically signed by: Haseeb Mills M.D. 04/17/2017 1:40 PM Dictated Date/Time: 04/17/2017 1:32 PM
--- NOTE | 2017-04-17 13:55 | DIAGNOSTIC IMAGING REPORT ---
L FEMUR 2 VIEWS ROUTINE CLINICAL HISTORY: Left hip pain. COMPARISON: None FINDINGS: No acute fracture of the left femur is identified. Alignment of the left hip and knee is anatomic. There is mild osteoarthritis of the left hip. IMPRESSION: 1. No acute fracture of the left femur. 2. Mild osteoarthritis of the left hip. Electronically signed by: Saul Rodríguez M.D. 04/17/2017 1:54 PM Dictated Date/Time: 04/17/2017 1:53 PM
--- NOTE | 2017-04-17 14:09 | DIAGNOSTIC IMAGING REPORT ---
L VENOUS DOPP LOWER EXT UNILAT HISTORY: 77 years-old Male Pt c/o left leg pain acute left leg pain COMPARISON: None available TECHNIQUE: Multiple real-time sonographic images of the left lower extremity deep venous structures were obtained assessing grayscale appearance, color and spectral flow. FINDINGS: Flow flow is noted throughout the common femoral and popliteal veins, likely incidental. There is normal compressibility, phasicity and augmentation throughout the deep venous structures without evidence of thrombus. IMPRESSION: No sonographic evidence of deep venous thrombosis. The above report was generated using voice recognition software. It may contain grammatical, syntax or spelling errors. Electronically signed by: Pablo Rosales M.D. 04/17/2017 2:08 PM Dictated Date/Time: 04/17/2017 2:06 PM
[2017-04-17] MEDS ORDERED: LIDODERM (LIDOCAINE) PATCH 5% TD STA (14:22)
[2017-04-17] MEDS ORDERED: OXYC1TAB3 PO (14:27)
[2017-04-17] MEDS ORDERED: LDDP5 TD (14:27)
[2017-04-17] MEDS ORDERED: SENN1TAB77 PO (14:28)
[2017-04-17] MEDS ORDERED: DOCU-94 PO (14:28)
[2017-04-17 15:17] VITALS: BP 132/68; PULSE 54; O2SAT 94
== END 2017-04-17 15:25 | disposition home or self-care (01) ==
LOC: C.EDB 12:12
DX: M79.662 Pain in left lower leg (principal); R03.0 Elevated blood-pressure reading, without diagnosis of hypertension; Z93.3 Colostomy status; Z79.82 Long term (current) use of aspirin; Z79.84 Long term (current) use of oral hypoglycemic drugs

== ENCOUNTER 2017-06-10 11:37 | Inpatient (IN) | payer OTHER ==
[~2017-06-10] VITALS: Ht 177.8 cm; Wt 93.0 kg
[~2017-06-10 11:37] MED LIST changes: -CEFD300C2 PO; +LDDP5 TD; +OXYC1TAB3 PO
[2017-06-10] MEDS ORDERED: SODIUM CHLORIDE 0.9% 500ML 500 ML IV ONE (12:22)
[2017-06-10 12:55] LABS: HEMOGLOBIN 14.2 g/dL (14.0-18.0); MEAN CELL VOLUME 88.2 fL (80-100); MEAN CORPUSCULAR HEMOGLOBIN 30.5 pg (25-34); MEAN CORPUSCULAR HGB CONC 34.6 g/dl (32-36); MEAN PLATELET VOLUME 8.6 fL (7.4-10.4); PLATELET COUNT 259 K/uL (130-400); RED CELL DISTRIBUTION WIDTH CV 15.1 % (11.5-14.5); RED CELL DISTRIBUTION WIDTH SD 48.4 fL (36.4-46.3); WHITE BLOOD COUNT 11.02 K/uL (4.8-10.8)
[2017-06-10 13:03] LABS: PTT PATIENT 25.8 SECONDS (21.0-31.0)
[2017-06-10 13:07] LABS: ALBUMIN 3.3 gm/dl (3.4-5.0); CALCIUM 9.5 mg/dl (8.5-10.1); CREATININE 0.79 mg/dl (0.60-1.40); POTASSIUM 3.4 mmol/L (3.5-5.1)
[2017-06-10 13:10] LABS: TOTAL PROTEIN 7.7 gm/dl (6.4-8.2)
[2017-06-10 13:19] LABS: BASO % 0.6 %; BASO ABS # 0.07 K/uL (0-0.2); EOS % 0.6 %; EOS ABS # 0.07 K/uL (0-0.5); IG# 0.11 K/uL (0.00-0.02); LYMPH % 11.3 %; LYMPH ABS # 1.25 K/uL (1.2-3.4); MONO % 7.9 %; MONO ABS # 0.87 K/uL (0.11-0.59); NEUT % 78.6 %; NEUT ABS # 8.65 K/uL (1.4-6.5)
[2017-06-10] MEDS ORDERED: VANCOMYCIN IV 1,750 MG in SODIUM CHLORIDE 0.9% 500ML 500 ML IV STA (13:21)
[2017-06-10] MEDS ORDERED: CEFTRIAXONE SOD INJ 1 GM ADDVIAL IV STA (13:21)
--- NOTE | 2017-06-10 13:28 | DIAGNOSTIC IMAGING REPORT ---
CHEST ONE VIEW PORTABLE CLINICAL HISTORY: Evaluate Fever/Sepsis dyspnea COMPARISON STUDY: No previous studies for comparison. FINDINGS: The bones soft tissues and hemidiaphragms are normal. The cardiomediastinal silhouette is normal. The lungs are clear. The pulmonary vasculature is normal. IMPRESSION: Negative chest. The above report was generated using voice recognition software. It may contain grammatical, syntax or spelling errors. Electronically signed by: Haseeb Mills M.D. 06/10/2017 1:26 PM Dictated Date/Time: 06/10/2017 1:26 PM
[2017-06-10] MEDS ORDERED: VANCOMYCIN CONSULT ACTIVE PRN ×2 (13:30→15:00)
--- NOTE | 2017-06-10 14:05 | EMERGENCY ROOM VISIT NOTE ---
History Report prepared by Charlie: Tal Rivera Under the Supervision of: Dr. Anuel Wynn M.D. First contact with patient: 11:58 Chief Complaint: REFERRED BY DOCTOR Stated Complaint: REFERRED BY DR FOR ADMISSION History of Present Illness The patient is a 77 year old white male with a past medical history of colostomy placement secondary to colon cancer (cancer free x15 years), HTN and pyelonephritis who presents to the ED with a cc of intermittent lower back pain beginning five weeks ago. Patient was seen by [facility] and was referred to the ED with concerns of lumbar disc infection by MRI. No recent history of back surgery or wounds. Positive bilateral leg pain. Negative nausea , vomiting, abdominal pain, numbness, fevers, chills. Patient recently had a UTI and finished up his medications earlier this week. Nothing has improved his pain. Source of History: patient Onset: Five weeks ago Position: back (lower) Timing: intermittent Modifying Factors (Relieving): other (none) Associated Symptoms: No fevers, No chills, No nausea, No vomiting, No abdominal pain Note: Positive: bilateral leg pain Review of Systems See HPI for pertinent positives and negatives. A total of ten systems were reviewed and were otherwise negative. Past Medical & Surgical Medical Problems: (1) Colon cancer (2) Colostomy present (3) HTN (hypertension) (4) Pyelonephritis Family History No pertinent family history stated. Social History Smoking Status: Former Smoker Drug Use: none Marital Status: Housing Status: lives with significant other Occupation Status: retired Current/Historical Medications Scheduled Aspirin ([facility] [place] Low Dose Aspiri), 81 MG PO DAILY Atenolol (Tenormin), 75 MG PO DAILY Chlorthalidone (Chlorthalidone), 25 MG PO DAILY Finasteride (Finasteride), 5 MG PO DAILY Glipizide (Glipizide), 2.5 MG PO BID Losartan Potassium (Cozaar), 100 MG PO DAILY Metformin Hcl (Glucophage), 500 MG PO TID Potassium Ext Rel (Klor-Con), 60 MEQ PO DAILY Tamsulosin Hcl (Flomax), 0.4 MG PO DAILY Allergies Coded Allergies: YUMIKO Inhibitors (Unverified Adverse Reaction, Intermediate, COUGH, 06/10/17) Physical Exam Vital Signs Date Time Temp Pulse Resp B/P (MAP) Pulse Ox O2 Delivery O2 Flow Rate FiO2 06/10/17 13:30 59 18 118/66 97 Room Air 06/10/17 13:01 58 06/10/17 11:45 36.4 72 16 156/89 95 Room Air Physical Exam GENERAL: Awake, alert, well-appearing, NAD HENT: Normocephalic, atraumatic. EYES: Normal conjunctiva. Sclera non-icteric. NECK: Supple. No nuchal rigidity. FROM. RESPIRATORY: CTAB, no rhonchi, wheezing, crackles CARDIAC: RRR, no MRG ABDOMEN: Soft, NTND, BS+. Colostomy in RLQ. Brown stool present in bag. MSK: No chest wall TTP, no LE edema. Negative straight leg raise bilaterally. NEURO: GCS 15, CN 2-12 intact, moves all 4s on command. No saddle anesthesia. NVI distally. Good flection and extension at the hips, knees and ankles. SKIN: No rash or jaundice noted. Medical Decision & Procedures ER Provider Diagnostic Interpretation: Radiology results as stated below per my review and radiologist interpretation: CHEST ONE VIEW PORTABLE FINDINGS: The bones soft tissues and hemidiaphragms are normal. The cardiomediastinal silhouette is normal. The lungs are clear. The pulmonary vasculature is normal. IMPRESSION: Negative chest. The above report was generated using voice recognition software. It may contain grammatical, syntax or spelling errors. Electronically signed by: Haseeb Mills M.D. 06/10/2017 1:26 PM Laboratory Results 06/10/17 12:35 Red Blood Count 4.65, Mean Corpuscular Volume 88.2, Mean Corpuscular Hemoglobin 30.5, Mean Corpuscular Hemoglobin Concent 34.6, Mean Platelet Volume 8.6, Neutrophils (%) (Auto) 78.6, Lymphocytes (%) (Auto) 11.3, Monocytes (%) (Auto) 7.9, Eosinophils (%) (Auto) 0.6, Basophils (%) (Auto) 0.6, Neutrophils # (Auto) 8.65, Lymphocytes # (Auto) 1.25, Monocytes # (Auto) 0.87, Eosinophils # (Auto) 0.07, Basophils # (Auto) 0.07 06/10/17 12:35 Test 06/10/17 12:16 06/10/17 12:35 Urine Color YELLOW Urine Appearance CLOUDY (CLEAR) Urine pH 6.0 (4.5-7.5) Urine Specific [place] 1.020 (1.000-1.030) Urine Protein NEG (NEG) Urine Glucose (UA) NEG (NEG) Urine Ketones NEG (NEG) Urine Occult Blood TRACE (NEG) Urine Nitrite POS (NEG) Urine Bilirubin NEG (NEG) Urine Urobilinogen NEG (NEG) Urine Leukocyte Esterase MODERATE (NEG) Urine WBC (Auto) >30 /hpf (0-5) Urine RBC (Auto) 0-4 /hpf (0-4) Urine Hyaline Casts (Auto) 10-30 /lpf (0-5) Urine Epithelial Cells (Auto) 5-10 /lpf (0-5) Urine Bacteria (Auto) 4+ (NEG) White Blood Count 11.02 K/uL (4.8-10.8) Red Blood Count 4.65 M/uL (4.7-6.1) Hemoglobin 14.2 g/dL (14.0-18.0) Hematocrit 41.0 % (42-52) Mean Corpuscular Volume 88.2 fL (80-100) Mean Corpuscular Hemoglobin 30.5 pg (25-34) Mean Corpuscular Hemoglobin Concent 34.6 g/dl (32-36) Platelet Count 259 K/uL (130-400) Mean Platelet Volume 8.6 fL (7.4-10.4) Neutrophils (%) (Auto) 78.6 % Lymphocytes (%) (Auto) 11.3 % Monocytes (%) (Auto) 7.9 % Eosinophils (%) (Auto) 0.6 % Basophils (%) (Auto) 0.6 % Neutrophils # (Auto) 8.65 K/uL (1.4-6.5) Lymphocytes # (Auto) 1.25 K/uL (1.2-3.4) Monocytes # (Auto) 0.87 K/uL (0.11-0.59) Eosinophils # (Auto) 0.07 K/uL (0-0.5) Basophils # (Auto) 0.07 K/uL (0-0.2) RDW Standard Deviation 48.4 fL (36.4-46.3) RDW Coefficient of Variation 15.1 % (11.5-14.5) Immature Granulocyte % (Auto) 1.0 % Immature Granulocyte # (Auto) 0.11 K/uL (0.00-0.02) Prothrombin Time 10.9 SECONDS (9.0-12.0) Prothromb Time International Ratio 1.0 (0.9-1.1) Activated Partial Thromboplast Time 25.8 SECONDS (21.0-31.0) Partial Thromboplastin Ratio 1.0 Anion Gap 11.0 mmol/L (3-11) Est Creatinine Clear Calc Drug Dose 91.1 ml/min Estimated GFR () 101.1 Estimated GFR (Non- 87.2 BUN/Creatinine Ratio 22.1 (10-20) Calcium Level 9.5 mg/dl (8.5-10.1) Total Bilirubin 0.7 mg/dl (0.2-1) Direct Bilirubin 0.2 mg/dl (0-0.2) Aspartate Amino Transf (AST/SGOT) 13 U/L (15-37) Alanine Aminotransferase (ALT/SGPT) 21 U/L (12-78) Alkaline Phosphatase 78 U/L (45-117) Total Protein 7.7 gm/dl (6.4-8.2) Albumin 3.3 gm/dl (3.4-5.0) Lipase 163 U/L (73-393) Laboratory results reviewed by me Medications Administered Medications (Trade) Dose Ordered Sig/Faith Route Start Time Stop Time Status Last Admin Dose Admin Sodium Chloride 500 ml @ 1,000 mls/hr Q30M ONCE IV 06/10/17 12:22 06/10/17 12:51 DC 06/10/17 12:57 1,000 MLS/HR Ceftriaxone Sodium (Rocephin Inj) 2 gm NOW STAT IV 06/10/17 13:21 06/10/17 13:24 DC 06/10/17 13:43 2 GM ECG Per My Interpretation Indication: back/shoulder pain Rate (beats per minute): 63 Rhythm: normal sinus Findings: Q waves (Inferior), T-wave inversion (hilateral leads), other ( Normal axis. No other STS changes or TWI. ) Comparison ECG Date: no prior available ED Course 1215: The patient was evaluated in room A12B. A complete history and physical exam was performed. 1400: Upon reexamination, the patient was resting comfortably. I discussed the test results and treatment plan with him. The patient will be evaluated for further management. Medical Decision The patient is a 77 year old white male with a past medical history of colostomy placement secondary to colon cancer (cancer free x15 years), HTN, pyelonephritis who presents to the ED with a cc of intermittent lower back pain beginning five weeks ago. Differential diagnosis: Etiologies such as musculoskeletal, disc herniation, fracture, aortic disease, metastatic disease, cord compression, discitis, infection, renal colic, gastrointestinal, acute exacerbation of chronic back pain, sciatica, cauda equina, as well as others were entertained. Prior records were reviewed. The patient did have an outpatient clinic appointment and an outpatient MRI showed that the patient did have a discitis/ osteomyelitis with possible phlegmon at the L5-S1. Patient was seen and evaluated at the bedside. The patient was referred here from [facility]. Patient did relate that he has had some chronic back pains. Patient was seen here as a possible re-eval. Peers noted on prior CTs the patient has has a spinal stenosis. The patient denies any bowel or bladder incontinence, saddle anesthesia. Patient does have back pain however not at rest when lying down. He states this is primarily worse standing up and walking around. Patient has a negative straight leg raise on exam. Patient did have blood work completed, EKG, blood cultures. Patient was started on empiric broad-spectrum antibiotics with the help with the pharmacist. Patient was given vancomycin and Rocephin. I did discuss the patient with the on-call hospitalist who agreed to further evaluate and treat the patient. Given that spine did refer the patient should be aware; however, the hospitalist will call to confirm. MRI LUMBAR SPINE ([place] [facility] [place] IMPRESSION: L5-S1 osteomyelitis/discitis with phlegmon; the patient should return for contrast-enhancement to complete the evaluation. Multiple probable bilateral renal cysts, at least one of which measures over 6 cm follow-up evaluation with ultrasound is required due to size greater than 5 cm. Multilevel secondary disc and facet changes, contributing primarily to foraminal stenosis from L1-S1. Otherwise, normal MRI of the lumbar spine without contrast. Medication Reconcilliation Current Medication List: was personally reviewed by me Blood Pressure Screening Patient's blood pressure: Normal blood pressure Blood pressure disposition: Did not require urgent referral Consults Time Called: 1358 Consulting Physician: Nicolasa RENDON [facility] Hospitalist Returned Call: [phone] Discussed the patient's case. The patient will be evaluated for further treatment and disposition. Impression Primary Impression: Discitis of lumbar region Additional Impressions: Back pain UTI (urinary tract infection) Scribe Attestation The scribe's documentation has been prepared under my direction and personally reviewed by me in its entirety. I confirm that the note above accurately reflects all work, treatment, procedures, and medical decision making performed by me. Departure Information Dispostion Being Evaluated By Hospitalist Referrals Melissa Sheldon M.D. (MEDICAL) (PCP) Patient Instructions My [facility] Problem Qualifiers Additional Impressions: Back pain Back pain location: low back pain Chronicity: chronic Back pain laterality : midline Sciatica presence: without sciatica Qualified Codes: M54.5 - Low back pain; G89.29 - Other chronic pain UTI (urinary tract infection) Urinary tract infection type: acute cystitis Hematuria presence: with hematuria Qualified Codes: N30.01 - Acute cystitis with hematuria
[2017-06-10] MEDS ORDERED: CONSULT PHARMACY STA (14:56)
[2017-06-10] MEDS ORDERED: GLUCAGON FOR INJ 1 MG VIAL SQ PRN (15:00)
[2017-06-10] MEDS ORDERED: DEXTROSE 50% 50 ML SYR IV PRN (15:00)
[2017-06-10] MEDS ORDERED: ONDANSETRON INJ 2 MG/ML 2 ML VIAL IV PRN (15:00)
[2017-06-10] MEDS ORDERED: GLUCOSE 40% GEL 15 GM TUBE PO PRN (15:00)
[2017-06-10] MEDS ORDERED: GLUCOSE 10 TABS/TUBE PO PRN (15:00)
[2017-06-10] MEDS ORDERED: DOCU100C31 PO (15:03)
[2017-06-10] MEDS ORDERED: DOCUSATE SODIUM 100 MG CAP PO PRN (15:15)
[2017-06-10 16:15] VITALS: Ht 177.8 cm; Wt 93.0 kg
--- NOTE | 2017-06-10 16:19 | Pharmacy Progress Note ---
Pharmacy Antibiotic Consult Date of Service: Jun 10, 2017. Pharmacy Dosing Scope Pharmacy is consulted to initiate vancomycin IV dosing therapy, order appropriate labs and adjust drug dose/frequency. Subjective The patient is a 77 year old male admitted on 06/10/17. Objective Height (Feet): 5 Height (Inches): 10.00 Weight (Kilograms): 93.000 Lab Results (24hrs): Test 06/10/17 12:16 06/10/17 12:35 Urine Color YELLOW Urine Appearance CLOUDY (CLEAR) Urine pH 6.0 (4.5-7.5) Urine Specific [place] 1.020 (1.000-1.030) Urine Protein NEG (NEG) Urine Glucose (UA) NEG (NEG) Urine Ketones NEG (NEG) Urine Occult Blood TRACE (NEG) Urine Nitrite POS (NEG) Urine Bilirubin NEG (NEG) Urine Urobilinogen NEG (NEG) Urine Leukocyte Esterase MODERATE (NEG) Urine WBC (Auto) >30 /hpf (0-5) Urine RBC (Auto) 0-4 /hpf (0-4) Urine Hyaline Casts (Auto) 10-30 /lpf (0-5) Urine Epithelial Cells (Auto) 5-10 /lpf (0-5) Urine Bacteria (Auto) 4+ (NEG) White Blood Count 11.02 K/uL (4.8-10.8) Red Blood Count 4.65 M/uL (4.7-6.1) Hemoglobin 14.2 g/dL (14.0-18.0) Hematocrit 41.0 % (42-52) Mean Corpuscular Volume 88.2 fL (80-100) Mean Corpuscular Hemoglobin 30.5 pg (25-34) Mean Corpuscular Hemoglobin Concent 34.6 g/dl (32-36) Platelet Count 259 K/uL (130-400) Mean Platelet Volume 8.6 fL (7.4-10.4) Neutrophils (%) (Auto) 78.6 % Lymphocytes (%) (Auto) 11.3 % Monocytes (%) (Auto) 7.9 % Eosinophils (%) (Auto) 0.6 % Basophils (%) (Auto) 0.6 % Neutrophils # (Auto) 8.65 K/uL (1.4-6.5) Lymphocytes # (Auto) 1.25 K/uL (1.2-3.4) Monocytes # (Auto) 0.87 K/uL (0.11-0.59) Eosinophils # (Auto) 0.07 K/uL (0-0.5) Basophils # (Auto) 0.07 K/uL (0-0.2) RDW Standard Deviation 48.4 fL (36.4-46.3) RDW Coefficient of Variation 15.1 % (11.5-14.5) Immature Granulocyte % (Auto) 1.0 % Immature Granulocyte # (Auto) 0.11 K/uL (0.00-0.02) Prothrombin Time 10.9 SECONDS (9.0-12.0) Prothromb Time International Ratio 1.0 (0.9-1.1) Activated Partial Thromboplast Time 25.8 SECONDS (21.0-31.0) Partial Thromboplastin Ratio 1.0 Sodium Level 135 mmol/L (136-145) Potassium Level 3.4 mmol/L (3.5-5.1) Chloride Level 101 mmol/L (98-107) Carbon Dioxide Level 23 mmol/L (21-32) Anion Gap 11.0 mmol/L (3-11) Blood Urea Nitrogen 18 mg/dl (7-18) Creatinine 0.79 mg/dl (0.60-1.40) Est Creatinine Clear Calc Drug Dose 91.1 ml/min Estimated GFR () 101.1 Estimated GFR (Non- 87.2 BUN/Creatinine Ratio 22.1 (10-20) Random Glucose 116 mg/dl (70-99) Calcium Level 9.5 mg/dl (8.5-10.1) Magnesium Level 1.7 mg/dl (1.8-2.4) Total Bilirubin 0.7 mg/dl (0.2-1) Direct Bilirubin 0.2 mg/dl (0-0.2) Aspartate Amino Transf (AST/SGOT) 13 U/L (15-37) Alanine Aminotransferase (ALT/SGPT) 21 U/L (12-78) Alkaline Phosphatase 78 U/L (45-117) Total Protein 7.7 gm/dl (6.4-8.2) Albumin 3.3 gm/dl (3.4-5.0) Lipase 163 U/L (73-393) Assessment & Plan Assessment * 77 yo M with back pain - discitis evidenced by outpatient MRI. No recent back surgeries/wound. * Recent antibiotic exposure for UTI - unknown which * Vancomycin 19 mg/kg administered in ED * SCr 0.8 mg/dL, eCrCL 91 mL/min, equating to estimated vancomycin t1/2 of 8.7 hr * Concern for impaired vancomycin penetration to site of potential infection therefore will be slightly more aggressive with ongoing vancomycin dose at 16 mg /kg IV q10h * Trough prior to 4th overall dose Plan * Vancomycin 1500 mg IV q10h * Trough 06/11 @ 1930 Pharmacy will continue to follow and will adjust dose/frequency as necessary. Thank you
[2017-06-10] MEDS ORDERED: MAGNESIUM SULFATE 1GM / D5W 1 GM in PREMIXED IN D5W 100 ML IV STA (16:37)
[2017-06-10 16:55] VITALS: BP 147/81; PULSE 56; TEMP 36.3; O2SAT 96
[2017-06-10] MEDS ORDERED: POTASSIUM CHLORIDE 20 MEQ TABCR PO ONE (17:00)
--- NOTE | 2017-06-10 17:30 | History and Physical ---
History & Physical Date & Time of Service: Jun 10, 2017 ~ 14:15 Chief Complaint: Low Back Pain, Referred by Dr. Post Primary Care Physician: Rojas Harrington M.D. History of Present Illness 77-year-old male who presents to the ER with a chief complaint of low back pain. Patient reports increasing back pain for the past 5 weeks. He has been following with outpatient spine orthopedics. He did take a course of oral prednisone at the beginning of the illness which did improve the pain however returned shortly after completing the course. Patient had an outpatient lumbar spine MRI scheduled today which showed L5-S1 osteomyelitis/discitis. Patient was then referred to the ER for further evaluation. Over the past few months patient has been having recurrent urinary tract infections. Initially was seen in the ER on April [address] scan that showed pyelonephritis. Urine culture from that time showed E. coli and patient was treated with Cefdinir. Patient had recurrent urinary symptoms and had repeat urine culture done on May 13 that again showed E. coli and patient was treated with Bactrim. Patient reports that [place] was recently seen [place] placed on another antibiotic for urinary tract infection. I called the patient's pharmacy and confirmed that he was given Macrobid on May 29 to take for 7 days. Patient reports he had one episode of fevers chills and diaphoresis with his initial UTI back in April however denies any further fevers or chills. Patient reports increasing back pain. Pain is described as severe. He also has associated pain in his bilateral calves switching from the right side to the left. Patient denies chest pain, shortness of breath, lightheadedness, dizziness, and syncopal events. He denies abdominal pain, nausea, vomiting and unchanged output from his colostomy. He denies any current urinary symptoms. In the ER patient is hemodynamic is stable lab results her white blood cell count of 11,000. UA suggestive of UTI. He was given IV fluids, IV vancomycin, and IV ceftriaxone. Past Medical/Surgical History Medical Problems: (1) Colon cancer Status: Chronic (2) Colostomy in place Status: Chronic (3) DM type 2 (diabetes mellitus, type 2) Status: Chronic (4) Dyslipidemia Status: Chronic (5) HTN (hypertension) Status: Chronic Surgical Problems: (1) H/O colectomy Status: Chronic Family History FH: cancer MOTHER Social History Smoking Status: Former Smoker Alcohol Use: occasionally Immunizations History of Influenza Vaccine: Yes Influenza Vaccine Date: Feb 11, 2015 History of Tetanus Vaccine?: Yes Tetanus Immunization Date: Jun 26, 2013 History of Pneumococcal: Yes Pneumococcal Date: Mar 30, 2015 Allergies Coded Allergies: YUMIKO Inhibitors (Verified Adverse Reaction, Mild, COUGH, 06/10/17) Home Medications Scheduled Aspirin ([facility] Low Dose Aspiri), 81 MG PO DAILY Atenolol (Tenormin), 75 MG PO DAILY Chlorthalidone (Chlorthalidone), 25 MG PO DAILY Finasteride (Finasteride), 5 MG PO DAILY Glipizide (Glipizide), 2.5 MG PO BID Losartan Potassium (Cozaar), 100 MG PO DAILY Metformin Hcl (Glucophage), 500 MG PO TID Potassium Ext Rel (Klor-Con), 60 MEQ PO DAILY Tamsulosin Hcl (Flomax), 0.4 MG PO DAILY Scheduled PRN Docusate Sodium (Docusate Sodium), 1 CAP PO BID PRN for Constipation Review of Systems ROS per HPI, all other systems reviewed and negative Physical Exam Vital Signs Date Time Temp Pulse Resp B/P (MAP) Pulse Ox O2 Delivery O2 Flow Rate FiO2 06/10/17 16:15 Room Air 06/10/17 15:41 58 18 123/74 97 06/10/17 15:30 58 18 123/74 97 Room Air 06/10/17 13:30 59 18 118/66 97 Room Air 06/10/17 13:01 58 06/10/17 11:45 36.4 72 16 156/89 95 Room Air General Appearance: WD/WN, no apparent distress Head: normocephalic, atraumatic Eyes: normal inspection, EOMI, sclerae normal ENT: hearing grossly normal, + pertinent finding (mucous membranes moist) Neck: supple, no JVD, trachea midline Respiratory/Chest: lungs clear, normal breath sounds, no respiratory distress Cardiovascular: regular rate, rhythm, no edema, normal peripheral pulses Abdomen/GI: normal bowel sounds, non tender, soft, no organomegaly Extremities/Musculoskelatal: + pertinent finding (negative straight leg test, strength BLLE 5/5) Neurologic/Psych: no motor/sensory deficits, alert, normal mood/affect, oriented x 3 Skin: normal color, warm/dry Diagnostics Laboratory Results Results Past 24 Hours Test 06/10/17 12:16 06/10/17 12:35 Range/Units Urine Color YELLOW Urine Appearance CLOUDY CLEAR Urine pH 6.0 4.5-7.5 Urine Specific [place] 1.020 1.000-1.030 Urine Protein NEG NEG Urine Glucose (UA) NEG NEG Urine Ketones NEG NEG Urine Occult Blood TRACE NEG Urine Nitrite POS NEG Urine Bilirubin NEG NEG Urine Urobilinogen NEG NEG Urine Leukocyte Esterase MODERATE NEG Urine WBC (Auto) >30 0-5 /hpf Urine RBC (Auto) 0-4 0-4 /hpf Urine Hyaline Casts (Auto) 10-30 0-5 /lpf Urine Epithelial Cells (Auto) 5-10 0-5 /lpf Urine Bacteria (Auto) 4+ NEG White Blood Count 11.02 4.8-10.8 K/uL Red Blood Count 4.65 4.7-6.1 M/uL Hemoglobin 14.2 14.0-18.0 g/dL Hematocrit 41.0 42-52 % Mean Corpuscular Volume 88.2 80-100 fL Mean Corpuscular Hemoglobin 30.5 25-34 pg Mean Corpuscular Hemoglobin Concent 34.6 32-36 g/dl Platelet Count 259 130-400 K/uL Mean Platelet Volume 8.6 7.4-10.4 fL Neutrophils (%) (Auto) 78.6 % Lymphocytes (%) (Auto) 11.3 % Monocytes (%) (Auto) 7.9 % Eosinophils (%) (Auto) 0.6 % Basophils (%) (Auto) 0.6 % Neutrophils # (Auto) 8.65 1.4-6.5 K/uL Lymphocytes # (Auto) 1.25 1.2-3.4 K/uL Monocytes # (Auto) 0.87 0.11-0.59 K/uL Eosinophils # (Auto) 0.07 0-0.5 K/uL Basophils # (Auto) 0.07 0-0.2 K/uL RDW Standard Deviation 48.4 36.4-46.3 fL RDW Coefficient of Variation 15.1 11.5-14.5 % Immature Granulocyte % (Auto) 1.0 % Immature Granulocyte # (Auto) 0.11 0.00-0.02 K/uL Prothrombin Time 10.9 9.0-12.0 SECONDS Prothromb Time International Ratio 1.0 0.9-1.1 Activated Partial Thromboplast Time 25.8 21.0-31.0 SECONDS Partial Thromboplastin Ratio 1.0 Sodium Level 135 136-145 mmol/L Potassium Level 3.4 3.5-5.1 mmol/L Chloride Level 101 98-107 mmol/L Carbon Dioxide Level 23 21-32 mmol/L Anion Gap 11.0 3-11 mmol/L Blood Urea Nitrogen 18 7-18 mg/dl Creatinine 0.79 0.60-1.40 mg/dl Est Creatinine Clear Calc Drug Dose 91.1 ml/min Estimated GFR () 101.1 Estimated GFR (Non- 87.2 BUN/Creatinine Ratio 22.1 10-20 Random Glucose 116 70-99 mg/dl Calcium Level 9.5 8.5-10.1 mg/dl Magnesium Level 1.7 1.8-2.4 mg/dl Total Bilirubin 0.7 0.2-1 mg/dl Direct Bilirubin 0.2 0-0.2 mg/dl Aspartate Amino Transf (AST/SGOT) 13 15-37 U/L Alanine Aminotransferase (ALT/SGPT) 21 12-78 U/L Alkaline Phosphatase 78 45-117 U/L Total Protein 7.7 6.4-8.2 gm/dl Albumin 3.3 3.4-5.0 gm/dl Lipase 163 73-393 U/L Microbiology Results 06/10/17 Blood Culture, Received Pending 06/10/17 Blood Culture, Received Pending 06/10/17 Urine Culture, Received Pending Diagnostic Radiology CXR IMPRESSION: Negative chest. MRI LUMBAR SPINE IMPRESSION: L5-S1 osteomyelitis/discitis with phlegmon, multiple probable bilateral renal cyst at least one of which measures over 6 cm follow-up evaluation with ultrasound is recommended, multilevel secondary disc and facet changes contributing primarily to foraminal stenosis from L1-S1 Impression Assessment and Plan L5-S1 OSTEOMYELITIS/DISCITIS -Admit patient to [facility] -Patient presenting by referral of Dr. Post after outpatient MRI showed L5- S1 osteomyelitis/discitis; patient has been having increasing back pain for the past 5 weeks -Also noted patient has been having recurrent urinary tract infections since April, this is likely the source of the seeding for the osteomyelitis/discitis -Obtain blood cultures -Status post vancomycin and Rocephin in the ED, will continue with both for now ; noted that other urine cultures have been growing E. coli sensitive to ceftriaxone -White blood cell count 11,000, afebrile, no signs of sepsis -consult spine orthopedics -Consult ID RECURRENT URINARY TRACT INFECTIONS -Has been on 3 courses of antibiotics since April -UA today suggestive of UTI, urine culture obtained -CT ABD/pelvis from April did not show any signs of obstruction -Outpatient MRI today did show renal cysts, will obtain renal ultrasound -May need urology evaluation HYPERTENSION -BP currently controlled, continue atenolol, chlorthalidone, losartan DIABETES MELLITUS TYPE 2 -Hgb A1c 5.06 April 2015 -Hold oral agents and utilize SSI while hospitalized DVT PROPHYLAXIS -We will use SCDs in the event the patient needs invasive procedure DISPOSITION -In my clinical judgment this beneficiary meets acute admission criteria, established by [facility], that includes being hospitalized through two midnights. Advanced Directives Existing Living Will: Yes Existing Power of Service Rig Operator: Yes Resuscitation Status VTE Prophylaxis Will order VTE Prophylaxis: Yes Note ATTENDING ADDENDUM Record reviewed. Patient interviewed and examined. Care coordinated with JULIETA Madrid. Please refer to her documentation for patient's history. Briefly, 77-year-old male with diabetes and other problems diagnosed with E. coli urinary tract infection in April (suspected pyelonephritis per CT). Since then, experiencing low back pain as well as recurrent UTIs. Seen by Orthopedics. MRI of LS spine demonstrated apparent osteomyelitis/discitis at L5-S1. Experienced fever and chills several weeks ago, but not recently. EXAM: General- no distress Lungs- clear to auscultation; no respiratory distress Cardiovascular- RRR; no murmur; no gallop; no JVD; no pretibial edema Abdomen- + bowel sounds, soft, nontender Back- no lumbar tenderness; no significant pain with SLR bilat Extremities- no cyanosis; no calf tenderness Neuro- alert, oriented; motor strength lower extremities 5/5 Skin- warm & dry DATA: WBC 11,020. Potassium 3.4, magnesium 1.7, random glucose 116. Other lab studies as noted. Chest x-ray unremarkable. ASSESSMENT AND PLAN: Suspected discitis / osteomyelitis L5-S1 in setting of persistent/recurrent E. coli urinary tract infections. Most likely discitis/osteomyelitis secondary to E. coli seeing from UTI, but does consider other organisms including gram-positive cocci. Blood cultures obtained in ED. IV antibiotic coverage with intravenous vancomycin and ceftriaxone. Consult Ortho Spine. Recurrent UTIs are concerning. Question of renal cyst on MRI of LS spine. Check renal ultrasound to evaluate for cyst and to rule out ureteral calculi or other etiologies of obstruction. Consider prostatitis with or without prostatic abscess. Consult Urology. Please refer to SHANIA Kumar's documentation for discussion of other issues. Momo Stack MD .
[2017-06-10] MEDS: INSULIN ASPART 100 UNITS/ML 3 ML PEN SC SCH ×2 (17:45→21:39)
[2017-06-10] MEDS ORDERED: PNEUMOCOCCAL POLYSACCHARIDES 25 MCG/0.5 ML VIAL/SYR IM. ONE (18:30)
[2017-06-10] MEDS ORDERED: PNEUMOCOCCAL ADMINISTRATION CHARGE ONE (18:30)
[2017-06-10] MEDS ORDERED: INFLUENZA ADMINISTRATION CHARGE ONE (18:30)
[2017-06-10] MEDS ORDERED: INFLUENZA VIRUS QUAD VACCINE 0.5 ML SYR IM. ONE (18:30)
--- NOTE | 2017-06-10 20:52 | DIAGNOSTIC IMAGING REPORT ---
LEFT LOWER EXTREMITY VENOUS DOPPLER HISTORY: left calf pain COMPARISON STUDY: None. FINDINGS: There is normal compressibility, flow, and augmentation within the left lower extremity deep venous system. IMPRESSION: No DVT within the left lower extremity. Electronically signed by: Adonay Anderson M.D. 06/10/2017 8:51 PM Dictated Date/Time: 06/10/2017 8:50 PM
--- NOTE | 2017-06-10 20:59 | DIAGNOSTIC IMAGING REPORT ---
RENAL ULTRASOUND HISTORY: recurrent UTI, f/u renal cysts COMPARISON: Abdomen and pelvis CT 04/14/2017. FINDINGS: Right kidney: 11.6 cm. No hydronephrosis. Normal corticomedullary differentiation and cortical thickness. There is a 3.7 cm lower pole cyst. Trace perinephric fluid, unchanged. Left kidney: 12.4 cm. No hydronephrosis. Normal corticomedullary differentiation and cortical thickness. There are few cysts with the largest in the lower pole measuring 8.1 cm. Trace perinephric fluid, unchanged. Bladder: No bladder wall thickening. The bilateral ureteral jets were identified. The prostate is enlarged. IMPRESSION: 1. Stable bilateral renal cysts. 2. No hydronephrosis. 3. Trace perinephric fluid, unchanged. 4. Prostatomegaly. Electronically signed by: Adonay Anderson M.D. 06/10/2017 8:58 PM Dictated Date/Time: 06/10/2017 8:56 PM
[2017-06-10 22:58] VITALS: BP 117/76; PULSE 65; TEMP 36.5; O2SAT 98
[2017-06-11] MEDS: VANCOMYCIN IV 1,500 MG in SODIUM CHLORIDE 0.9% 500ML 500 ML IV SCH ×3 (00:08→20:57)
[2017-06-11 06:14] LABS: HEMATOCRIT 39.3 % (42-52); HEMOGLOBIN 13.5 g/dL (14.0-18.0); MEAN CELL VOLUME 89.1 fL (80-100); MEAN CORPUSCULAR HEMOGLOBIN 30.6 pg (25-34); MEAN CORPUSCULAR HGB CONC 34.4 g/dl (32-36); MEAN PLATELET VOLUME 8.8 fL (7.4-10.4); PLATELET COUNT 226 K/uL (130-400); RED CELL DISTRIBUTION WIDTH CV 15.1 % (11.5-14.5); RED CELL DISTRIBUTION WIDTH SD 49.2 fL (36.4-46.3); WHITE BLOOD COUNT 7.34 K/uL (4.8-10.8)
[2017-06-11] MEDS: INSULIN ASPART 100 UNITS/ML 3 ML PEN SC SCH ×3 (06:30→20:55)
[2017-06-11 06:48] LABS: HEMOGLOBIN A1C 5.8 % (4.5-5.6)
[2017-06-11 06:50] LABS: CALCIUM 8.9 mg/dl (8.5-10.1); CREATININE 0.85 mg/dl (0.60-1.40); POTASSIUM 3.4 mmol/L (3.5-5.1)
[2017-06-11 07:57] VITALS: BP 134/74; PULSE 60; TEMP 36.4; O2SAT 95
[2017-06-11] MEDS: FINASTERIDE 5 MG TAB PO SCH (07:59)
[2017-06-11] MEDS: POTASSIUM CHLORIDE 20 MEQ TABCR PO SCH (08:00)
[2017-06-11] MEDS: CHLORTHALIDONE 25 MG TAB PO SCH (08:00)
[2017-06-11] MEDS: ASPIRIN 81 MG CHEW PO SCH (08:00)
[2017-06-11] MEDS: TAMSULOSIN HCL 0.4 MG CAP PO SCH (08:01)
[2017-06-11] MEDS: LOSARTAN POTASSIUM 50 MG TAB PO SCH (08:01)
[2017-06-11 08:08] VITALS: PULSE 74
[2017-06-11] MEDS ORDERED: NURSING VERBAL MED ORDER ONE ×2 (09:30→17:30)
[2017-06-11] MEDS ORDERED: INSULIN ASPART 100 UNITS/ML 3 ML PEN SC SCH (12:00)
--- NOTE | 2017-06-11 12:03 | Medical Consult ---
Consultation Date of Consultation: Jun 11, 2017. Attending Physician: Justin Cortes MD Reason for Consultation: Diskitis History of Present Illness 77-year-old male with history of diabetes mellitus, hypertension, hyperlipidemia , with prior urinary tract infections with negative urologic workup in the past , who has been having difficulty with recurrent urinary infections with E coli for past several months. He has received several courses of antibiotics with positive cultures for E coli, most recently being Macrodantin but with persistent symptoms. For the last 4-5 weeks the patient has noted progressively worsening low back pain, up to 9/10 in intensity, with more difficulty walking. Eventually seen by Orthopedics and MRI was obtained yesterday which showed evidence of diskitis and osteomyelitis involving the L5- S1 area with surrounding phlegmon. Patient has been started on ceftriaxone. Denies any significant fever. Past Medical/Surgical History Medical Problems: (1) Left flank pain Status: Acute (2) Leg pain, left Status: Acute (3) Pyelonephritis Status: Acute Medical Problems: (1) Colon cancer (2) Colostomy in place (3) DM type 2 (diabetes mellitus, type 2) (4) Dyslipidemia (5) HTN (hypertension) Surgical Problems: (1) H/O colectomy Family History FH: cancer MOTHER Social History Smoking Status: Former Smoker Alcohol Use: occasionally Housing Status: lives with significant other Allergies Coded Allergies: YUMIKO Inhibitors (Verified Adverse Reaction, Mild, COUGH, 06/10/17) Current Inpatient Medications Current Inpatient Medications Medications (Trade) Dose Ordered Sig/Faith Route Start Time Stop Time Status Last Admin Dose Admin Acetaminophen (Tylenol Tab) 650 mg Q4H PRN PO 06/10/17 15:00 07/10/17 14:59 Ondansetron HCl (Zofran Inj) 4 mg Q6H PRN IV 06/10/17 15:00 07/10/17 14:59 Ceftriaxone Sodium 2000 mg/ Dextrose 70 ml @ 100 mls/hr Q24H IV 06/11/17 14:00 06/20/17 13:59 Miscellaneous Information (Consult) 1 ea UD PRN N/A 06/10/17 15:00 07/10/17 14:59 Glucose (Glucose 40% Gel) 15-30 GRAMS 15 GRAMS... UD PRN PO 06/10/17 15:00 07/10/17 14:59 Glucose (Glucose Chew Tab) 4-8 Tablets 4 Tabl... UD PRN PO 06/10/17 15:00 07/10/17 14:59 Dextrose (Dextrose 50% 50ML Syringe) 25-50ML OF 50% DW IV FOR... UD PRN IV 06/10/17 15:00 07/10/17 14:59 Glucagon (Glucagon Inj) 1 mg UD PRN SQ 06/10/17 15:00 07/10/17 14:59 Aspirin (Aspirin Chew) 81 mg DAILY PO 06/11/17 08:00 07/11/17 08:59 Atenolol (Tenormin Tab) 75 mg DAILY PO 06/11/17 08:00 07/11/17 08:59 06/11/17 08:01 75 MG Chlorthalidone (Hygroton Tab) 25 mg DAILY PO 06/11/17 08:00 07/11/17 08:59 06/11/17 08:00 25 MG Docusate Sodium (coLACE CAP) 100 mg BID PRN PO 06/10/17 15:15 07/10/17 15:14 Finasteride (Proscar Tab) 5 mg DAILY PO 06/11/17 08:00 07/11/17 08:59 06/11/17 07:59 5 MG Losartan Potassium (coZAAR TAB) 100 mg DAILY PO 06/11/17 08:00 07/11/17 08:59 06/11/17 08:01 100 MG Potassium Chloride (Klor-Con Tab) 60 meq DAILY PO 06/11/17 08:00 07/11/17 08:59 06/11/17 08:00 60 MEQ Tamsulosin HCl (Flomax Cap) 0.4 mg DAILY PO 06/11/17 08:00 07/11/17 08:59 06/11/17 08:01 0.4 MG Oxycodone HCl (Roxicodone Immediate Rel Tab) 5 mg Q6H PRN PO 06/10/17 17:30 06/24/17 17:29 Vancomycin HCl 1500 mg/Sodium Chloride 530 ml @ 200 mls/hr Q10H IV 06/11/17 00:00 07/23/17 00:00 06/11/17 10:28 200 MLS/HR Insulin Aspart (novoLOG ASPART) SLIDING SCALE If C... Q6 MO 06/11/17 12:00 07/11/17 11:59 Review of Systems Constitutional: + weakness, + fatigue, No fever Eyes: No problem reported ENT: No problem reported Respiratory: No problem reported Abdomen: No problem reported Musculoskeletal: + problem reported (Back pain) Genitourinary - Male: + dysuria, + urinary frequency Neurologic: No problem reported Endocrine: No problem reported Hematologic / Lymphatic: No problem reported Integumentary: No problem reported Allergic / Immunologic: No problem reported Physical Exam Date Time Temp Pulse Resp B/P (MAP) Pulse Ox O2 Delivery O2 Flow Rate FiO2 06/11/17 08:08 74 06/11/17 08:00 Room Air 06/11/17 07:57 36.4 60 18 134/74 (94) 95 Room Air 06/11/17 00:00 Room Air 06/10/17 22:58 36.5 65 18 117/76 (90) 98 Room Air 06/10/17 20:00 Room Air 06/10/17 17:00 Room Air 06/10/17 16:55 36.3 56 18 147/81 (103) 96 Room Air 06/10/17 16:15 Room Air 06/10/17 15:41 58 18 123/74 97 06/10/17 15:30 58 18 123/74 97 Room Air 06/10/17 13:30 59 18 118/66 97 Room Air 06/10/17 13:01 58 General Appearance: WD/WN, no apparent distress Head: normocephalic, atraumatic Eyes: normal inspection, EOMI, sclerae normal ENT: normal ENT inspection, hearing grossly normal, pharynx normal Neck: supple, no adenopathy, thyroid normal, trachea midline Respiratory/Chest: chest non-tender, lungs clear, normal breath sounds, no respiratory distress Cardiovascular: regular rate, rhythm, no gallop, no murmur Abdomen/GI: normal bowel sounds, non tender, soft, no organomegaly Back: normal inspection, no CVA tenderness, + pertinent finding (Tenderness over lower lumbar spine) Extremities/Musculoskelatal: normal inspection, no calf tenderness, normal capillary refill, non-tender Neurologic/Psych: alert, oriented x 3 Skin: normal color, warm/dry, no rash Lymphatic: no adenopathy Laboratory Results RUN DATE: 06/11/17 [facility] LAB PAGE 1 RUN TIME: 0853 Specimen Inquiry PATIENT: YAMILEX SALDAÑA LOC: [id number] U # : [id number] AGE/SX: 77/M ROOM: [facility] REG : 06/10/[address]: Justin Cortes MD : 1940 BED: 2 DIS : STATUS: ADM IN TLOC: SPEC #: [id number] KENNEDY: 06/10/17-1215 STATUS: RES REQ #: [id number] RECD: 06/10/17-[address]: Anuel Wynn M.D. SOURCE: PADMA GUTIERREZ ENTR: 06/10/17-[address] [facility] [address]: Rojas Harrington M.D. SPDESC: ORDERED: CULTURE URCLEAN COMMENTS: Comments to [employer] Professional SAME TIME DIFFERENT SITES Has Specimen Been Obtained/Collected? Y Procedure Result Verified Site URINE CULTURE Preliminary 06/11/17-0853 Organism 1 ESCHERICHIA COLI COLONY COUNT >100,000 CFU/ml SENS SENSITIVITY TO FOLLOW Last 24 Hours Test 06/10/17 12:16 06/10/17 12:35 06/10/17 16:27 06/10/17 19:57 Urine Color YELLOW Urine Appearance CLOUDY Urine pH 6.0 Urine Specific [place] 1.020 Urine Protein NEG Urine Glucose (UA) NEG Urine Ketones NEG Urine Occult Blood TRACE Urine Nitrite POS Urine Bilirubin NEG Urine Urobilinogen NEG Urine Leukocyte Esterase MODERATE Urine WBC (Auto) >30 /hpf Urine RBC (Auto) 0-4 /hpf Urine Hyaline Casts (Auto) 10-30 /lpf Urine Epithelial Cells (Auto) 5-10 /lpf Urine Bacteria (Auto) 4+ White Blood Count 11.02 K/uL Red Blood Count 4.65 M/uL Hemoglobin 14.2 g/dL Hematocrit 41.0 % Mean Corpuscular Volume 88.2 fL Mean Corpuscular Hemoglobin 30.5 pg Mean Corpuscular Hemoglobin Concent 34.6 g/dl Platelet Count 259 K/uL Mean Platelet Volume 8.6 fL Neutrophils (%) (Auto) 78.6 % Lymphocytes (%) (Auto) 11.3 % Monocytes (%) (Auto) 7.9 % Eosinophils (%) (Auto) 0.6 % Basophils (%) (Auto) 0.6 % Neutrophils # (Auto) 8.65 K/uL Lymphocytes # (Auto) 1.25 K/uL Monocytes # (Auto) 0.87 K/uL Eosinophils # (Auto) 0.07 K/uL Basophils # (Auto) 0.07 K/uL RDW Standard Deviation 48.4 fL RDW Coefficient of Variation 15.1 % Immature Granulocyte % (Auto) 1.0 % Immature Granulocyte # (Auto) 0.11 K/uL Prothrombin Time 10.9 SECONDS Prothromb Time International Ratio 1.0 Activated Partial Thromboplast Time 25.8 SECONDS Partial Thromboplastin Ratio 1.0 Sodium Level 135 mmol/L Potassium Level 3.4 mmol/L Chloride Level 101 mmol/L Carbon Dioxide Level 23 mmol/L Anion Gap 11.0 mmol/L Blood Urea Nitrogen 18 mg/dl Creatinine 0.79 mg/dl Est Creatinine Clear Calc Drug Dose 91.1 ml/min Estimated GFR () 101.1 Estimated GFR (Non- 87.2 BUN/Creatinine Ratio 22.1 Random Glucose 116 mg/dl Calcium Level 9.5 mg/dl Magnesium Level 1.7 mg/dl Total Bilirubin 0.7 mg/dl Direct Bilirubin 0.2 mg/dl Aspartate Amino Transf (AST/SGOT) 13 U/L Alanine Aminotransferase (ALT/SGPT) 21 U/L Alkaline Phosphatase 78 U/L Total Protein 7.7 gm/dl Albumin 3.3 gm/dl Lipase 163 U/L Bedside Glucose 96 mg/dl 141 mg/dl Test 06/11/17 05:38 06/11/17 07:32 06/11/17 11:38 White Blood Count 7.34 K/uL Red Blood Count 4.41 M/uL Hemoglobin 13.5 g/dL Hematocrit 39.3 % Mean Corpuscular Volume 89.1 fL Mean Corpuscular Hemoglobin 30.6 pg Mean Corpuscular Hemoglobin Concent 34.4 g/dl RDW Standard Deviation 49.2 fL RDW Coefficient of Variation 15.1 % Platelet Count 226 K/uL Mean Platelet Volume 8.8 fL Erythrocyte Sedimentation Rate 49 mm/hr Sodium Level 136 mmol/L Potassium Level 3.4 mmol/L Chloride Level 102 mmol/L Carbon Dioxide Level 26 mmol/L Anion Gap 8.0 mmol/L Blood Urea Nitrogen 14 mg/dl Creatinine 0.85 mg/dl Est Creatinine Clear Calc Drug Dose 84.7 ml/min Estimated GFR () 98.1 Estimated GFR (Non- 84.6 BUN/Creatinine Ratio 16.6 Random Glucose 117 mg/dl Estimated Average Glucose 120 mg/dl Hemoglobin A1c 5.8 % Calcium Level 8.9 mg/dl Magnesium Level 1.9 mg/dl C-Reactive Protein 1.41 mg/dl Bedside Glucose 120 mg/dl 125 mg/dl Patient Name: YAMILEX SALDAÑA Unit Number: [id number] Dictated: 06/10/172055 Transcribed: 06/10/172055 [facility] Printed Date/Time: [~ rep prt dt]/[~ rep prt tm] [~ rep ct labl] - [~ rep ct ivnm] [facility] [place] [address] Dictated: 06/10/172055 Transcribed: 06/10/172055 [facility] Printed Date/Time: [~ rep prt dt]/[~ rep prt tm] [~ rep ct labl] - [~ rep ct ivnm] [~ rep ct add3]] RENAL ULTRASOUND HISTORY: recurrent UTI, f/u renal cysts COMPARISON: Abdomen and pelvis CT 04/14/2017. FINDINGS: Right kidney: 11.6 cm. No hydronephrosis. Normal corticomedullary differentiation and cortical thickness. There is a 3.7 cm lower pole cyst. Trace perinephric fluid, unchanged. Left kidney: 12.4 cm. No hydronephrosis. Normal corticomedullary differentiation and cortical thickness. There are few cysts with the largest in the lower pole measuring 8.1 cm. Trace perinephric fluid, unchanged. Bladder: No bladder wall thickening. The bilateral ureteral jets were identified. The prostate is enlarged. IMPRESSION: 1. Stable bilateral renal cysts. 2. No hydronephrosis. 3. Trace perinephric fluid, unchanged. 4. Prostatomegaly. Electronically signed by: Adonay Anderson M.D. 06/10/2017 8:58 PM Dictated Date/Time: 06/10/2017 8:56 PM The status of this report is Signed. Draft = Not yet reviewed or approved by Radiologist. Signed = Reviewed and approved by Radiologist. <AttendingPhy>Justin Cortes MD</AttendingPhy> <FamilyPhy>Rojas Harrington M.D.</FamilyPhy> <PrimaryPhy>Rojas Harrington M.D.</PrimaryPhy> <UnitNumber> [id number]</UnitNumber> <VisitNumber>[id number]</VisitNumber> <PatientName> YAMILEX SALDAÑA</PatientName> <DateOfBirth>1940</DateOfBirth> <Location> [facility]</Location> <ServiceDate>06/10/17</ServiceDate> <MNE>ESINDI</MNE> < OrderingPhy>Nicolasa Kumar</OrderingPhy> <OrderingPhyMNE>f rep ord dr braga</ OrderingPhyMNE> <DictatingPhyMNE>f rep dict dr braga</DictatingPhyMNE> <CCListMNE> f rep ct mne</CCListMNE> <AdmittingPhyMNE>f pt admit dr braga</AdmittingPhyMNE> < AttendingPhyMNE>f pt attend dr braga</AttendingPhyMNE> <ConsultingPhyMNE>f pt consult dr braga</ConsultingPhyMNE> <FamilyPhyMNE>f pt fam dr braga</FamilyPhyMNE> <OtherPhyMNE>f pt other dr braga</OtherPhyMNE> < PrimaryPhyMNE>f pt prim care dr braga</PrimaryPhyMNE> <ReferringPhyMNE>f pt referring dr braga</ReferringPhyMNE> Assessment & Plan 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 Likely source of this infection would be persistent urinary tract infection. Given previous sensitivity of isolates, ceftriaxone appropriate pending further culture results and sensitivities. Await Orthopedic and urologic evaluation. Will follow.
[2017-06-11] MEDS: CEFTRIAXONE SOD INJ 2,000 MG in DEXTROSE 5% 50ML 50 ML IV SCH (13:42)
[2017-06-11 16:00] VITALS: O2SAT 95
[2017-06-11 16:20] VITALS: BP 118/74; PULSE 66; TEMP 36.5; O2SAT 93
--- NOTE | 2017-06-11 16:48 | Progress Note ---
Medicine Progress Note Date & Time of Visit: Jun 11, 2017 at 16:48. Objective Last 8 Hrs Date Time Temp Pulse Resp B/P (MAP) Pulse Ox O2 Delivery O2 Flow Rate FiO2 06/11/17 16:20 36.5 66 18 118/74 (89) 93 Room Air Physical Exam: General-[] Eyes-[] ENT-[] Neck-[] Lungs-[] Heart-[] Abdomen-[] Extremities-[] Neuro-[] Laboratory Results: Last 24 Hours Test 06/10/17 19:57 06/11/17 05:38 06/11/17 07:32 06/11/17 11:38 Bedside Glucose 141 mg/dl 120 mg/dl 125 mg/dl White Blood Count 7.34 K/uL Red Blood Count 4.41 M/uL Hemoglobin 13.5 g/dL Hematocrit 39.3 % Mean Corpuscular Volume 89.1 fL Mean Corpuscular Hemoglobin 30.6 pg Mean Corpuscular Hemoglobin Concent 34.4 g/dl RDW Standard Deviation 49.2 fL RDW Coefficient of Variation 15.1 % Platelet Count 226 K/uL Mean Platelet Volume 8.8 fL Erythrocyte Sedimentation Rate 49 mm/hr Sodium Level 136 mmol/L Potassium Level 3.4 mmol/L Chloride Level 102 mmol/L Carbon Dioxide Level 26 mmol/L Anion Gap 8.0 mmol/L Blood Urea Nitrogen 14 mg/dl Creatinine 0.85 mg/dl Est Creatinine Clear Calc Drug Dose 84.7 ml/min Estimated GFR () 98.1 Estimated GFR (Non- 84.6 BUN/Creatinine Ratio 16.6 Random Glucose 117 mg/dl Estimated Average Glucose 120 mg/dl Hemoglobin A1c 5.8 % Calcium Level 8.9 mg/dl Magnesium Level 1.9 mg/dl C-Reactive Protein 1.41 mg/dl Assessment & Plan Current Inpatient Medications: Current Inpatient Medications Medications (Trade) Dose Ordered Sig/Faith Route Start Time Stop Time Status Last Admin Dose Admin Acetaminophen (Tylenol Tab) 650 mg Q4H PRN PO 06/10/17 15:00 07/10/17 14:59 Ondansetron HCl (Zofran Inj) 4 mg Q6H PRN IV 06/10/17 15:00 07/10/17 14:59 Ceftriaxone Sodium 2000 mg/ Dextrose 70 ml @ 100 mls/hr Q24H IV 06/11/17 14:00 3/22/18 13:59 06/11/17 13:42 100 MLS/HR Miscellaneous Information (Consult) 1 ea UD PRN N/A 06/10/17 15:00 07/10/17 14:59 Glucose (Glucose 40% Gel) 15-30 GRAMS 15 GRAMS... UD PRN PO 06/10/17 15:00 07/10/17 14:59 Glucose (Glucose Chew Tab) 4-8 Tablets 4 Tabl... UD PRN PO 06/10/17 15:00 07/10/17 14:59 Dextrose (Dextrose 50% 50ML Syringe) 25-50ML OF 50% DW IV FOR... UD PRN IV 06/10/17 15:00 07/10/17 14:59 Glucagon (Glucagon Inj) 1 mg UD PRN SQ 06/10/17 15:00 07/10/17 14:59 Aspirin (Aspirin Chew) 81 mg DAILY PO 06/11/17 08:00 07/11/17 08:59 Atenolol (Tenormin Tab) 75 mg DAILY PO 06/11/17 08:00 07/11/17 08:59 06/11/17 08:01 75 MG Chlorthalidone (Hygroton Tab) 25 mg DAILY PO 06/11/17 08:00 07/11/17 08:59 06/11/17 08:00 25 MG Docusate Sodium (coLACE CAP) 100 mg BID PRN PO 06/10/17 15:15 07/10/17 15:14 Finasteride (Proscar Tab) 5 mg DAILY PO 06/11/17 08:00 07/11/17 08:59 06/11/17 07:59 5 MG Losartan Potassium (coZAAR TAB) 100 mg DAILY PO 06/11/17 08:00 07/11/17 08:59 06/11/17 08:01 100 MG Potassium Chloride (Klor-Con Tab) 60 meq DAILY PO 06/11/17 08:00 07/11/17 08:59 06/11/17 08:00 60 MEQ Tamsulosin HCl (Flomax Cap) 0.4 mg DAILY PO 06/11/17 08:00 07/11/17 08:59 06/11/17 08:01 0.4 MG Oxycodone HCl (Roxicodone Immediate Rel Tab) 5 mg Q6H PRN PO 06/10/17 17:30 06/24/17 17:29 Vancomycin HCl 1500 mg/Sodium Chloride 530 ml @ 200 mls/hr Q10H IV 06/11/17 00:00 07/23/17 00:00 06/11/17 10:28 200 MLS/HR Insulin Aspart (novoLOG ASPART) SLIDING SCALE If C... Q6 SC 06/11/17 12:00 07/11/17 11:59
--- NOTE | 2017-06-11 17:40 | Urology Consultation ---
History General Date of Service: Jun 11, 2017. Chief Complaint: UTI Primary Care Physician: Rjoas Harrington M.D. Pt seen a urologist before?: Yes If yes, why?: BPH History of Present Illness I am asked by Nicolasa Kumar PA-C to evaluate and treat patient for uti. He is admitted with persistent e coli UTI and a bacterial discitis. He was last seen by me in Mar 2015. He reports no change to voiding habits. he feels like he empties well and does not need to use valsalva to assist voiding. his feels his stream is more intermittent than it used to be, He has a large prostate and remains in finasteride for many years now. He became ill in April with kidney pain, and a fever with shaking chills one night. He then got better. he had some dysuria which was mild. His urine has been cloudy at times. He does not report pneumaturia or fecaluria. He had a ct scan in Apr 2017 and a renal ultrasound in May 2017. Neither suggest a bowel fistula to bladder. there are no stone, no diverticula, and the kidneys have mild edema both times. He is improving on iv antibiotics. He has a more remote history of frequent uti in 2012 2013 and 2014 but then none in 2015 and 2016. Imaging Imaging: CT, Ultrasound Laboratory Results Past 24 Hours Test 06/10/17 19:57 06/11/17 05:38 06/11/17 07:32 06/11/17 11:38 Range/Units Bedside Glucose 141 120 125 70-99 mg/dl White Blood Count 7.34 4.8-10.8 K/uL Red Blood Count 4.41 4.7-6.1 M/uL Hemoglobin 13.5 14.0-18.0 g/dL Hematocrit 39.3 42-52 % Mean Corpuscular Volume 89.1 80-100 fL Mean Corpuscular Hemoglobin 30.6 25-34 pg Mean Corpuscular Hemoglobin Concent 34.4 32-36 g/dl RDW Standard Deviation 49.2 36.4-46.3 fL RDW Coefficient of Variation 15.1 11.5-14.5 % Platelet Count 226 130-400 K/uL Mean Platelet Volume 8.8 7.4-10.4 fL Erythrocyte Sedimentation Rate 49 0-14 mm/hr Sodium Level 136 136-145 mmol/L Potassium Level 3.4 3.5-5.1 mmol/L Chloride Level 102 98-107 mmol/L Carbon Dioxide Level 26 21-32 mmol/L Anion Gap 8.0 3-11 mmol/L Blood Urea Nitrogen 14 7-18 mg/dl Creatinine 0.85 0.60-1.40 mg/dl Est Creatinine Clear Calc Drug Dose 84.7 ml/min Estimated GFR () 98.1 Estimated GFR (Non- 84.6 BUN/Creatinine Ratio 16.6 10-20 Random Glucose 117 70-99 mg/dl Estimated Average Glucose 120 mg/dl Hemoglobin A1c 5.8 4.5-5.6 % Calcium Level 8.9 8.5-10.1 mg/dl Magnesium Level 1.9 1.8-2.4 mg/dl C-Reactive Protein 1.41 0-0.29 mg/dl Test 06/11/17 16:53 Range/Units Bedside Glucose 115 70-99 mg/dl Labs were reviewed and are within normal limits unless listed below. Labs are available in the chart and at [facility] Problem List Medical Problems: (1) Left flank pain Status: Acute (2) Leg pain, left Status: Acute (3) Pyelonephritis Status: Acute Past History cancer - colon, diabetes, hypertension Past Surgical History: colostomy Family History FH: cancer MOTHER Social History Hx Tobacco Use In Past Year?: No Smoking: non-smoker Alcohol: never Marital status: Housing status: lives with family Occupation status: retired Immunizations History of Influenza Vaccine: Yes Influenza Vaccine Date: Feb 11, 2015 History of Tetanus Vaccine?: Yes Tetanus Immunization Date: Jun 26, 2013 History of Pneumococcal: Yes Pneumococcal Date: Mar 30, 2015 History of MDRO No Allergies Coded Allergies: YUMIKO Inhibitors (Verified Adverse Reaction, Mild, COUGH, 06/10/17) Medications Home Medications: Home Meds and Scripts Medications Dose Route/Sig Max Daily Dose Days Date Category Dose Instructions Docusate Sodium 100 Mg Cap 1 Cap PO BID PRN 15 06/10/[address] [facility] Low Dose Aspiri (Aspirin) 81 Mg Chw 81 Mg PO DAILY 04/14/17 Reported Glucophage (Metformin Hcl) 500 Mg Tab 500 Mg PO TID 04/14/17 Reported Glipizide 5 Mg Tab 2.5 Mg PO BID 04/14/17 Reported 1/2 OF A 5 MG TABLET TWICE DAILY Klor-Con (Potassium Chloride) 20 Meq Tabcr 60 Meq PO DAILY 04/14/17 Reported THREE 20 MEQ TABLETS Flomax (Tamsulosin Hcl) 0.4 Mg Cap 0.4 Mg PO DAILY 04/14/17 Reported Finasteride 5 Mg Tab 5 Mg PO DAILY 04/14/17 Reported Chlorthalidone 25 Mg Tab 25 Mg PO DAILY 04/14/17 Reported Tenormin (Atenolol) 25 Mg Tab 75 Mg PO DAILY 04/14/17 Reported THREE 25 MG TABLETS Cozaar (Losartan Potassium) 100 Mg Tab 100 Mg PO DAILY 04/14/17 Reported Inpatient Medications: Current Inpatient Medications Medications (Trade) Dose Ordered Sig/Faith Route Start Time Stop Time Status Last Admin Dose Admin Acetaminophen (Tylenol Tab) 650 mg Q4H PRN PO 06/10/17 15:00 07/10/17 14:59 Ondansetron HCl (Zofran Inj) 4 mg Q6H PRN IV 06/10/17 15:00 07/10/17 14:59 Ceftriaxone Sodium 2000 mg/ Dextrose 70 ml @ 100 mls/hr Q24H IV 06/11/17 14:00 06/20/17 13:59 06/11/17 13:42 100 MLS/HR Miscellaneous Information (Consult) 1 ea UD PRN N/A 06/10/17 15:00 07/10/17 14:59 Glucose (Glucose 40% Gel) 15-30 GRAMS 15 GRAMS... UD PRN PO 06/10/17 15:00 07/10/17 14:59 Glucose (Glucose Chew Tab) 4-8 Tablets 4 Tabl... UD PRN PO 06/10/17 15:00 07/10/17 14:59 Dextrose (Dextrose 50% 50ML Syringe) 25-50ML OF 50% DW IV FOR... UD PRN IV 06/10/17 15:00 07/10/17 14:59 Glucagon (Glucagon Inj) 1 mg UD PRN SQ 06/10/17 15:00 07/10/17 14:59 Aspirin (Aspirin Chew) 81 mg DAILY PO 06/11/17 08:00 07/11/17 08:59 Atenolol (Tenormin Tab) 75 mg DAILY PO 06/11/17 08:00 07/11/17 08:59 3/13/18 08:01 75 MG Chlorthalidone (Hygroton Tab) 25 mg DAILY PO 06/11/17 08:00 07/11/17 08:59 06/11/17 08:00 25 MG Docusate Sodium (coLACE CAP) 100 mg BID PRN PO 06/10/17 15:15 07/10/17 15:14 Finasteride (Proscar Tab) 5 mg DAILY PO 06/11/17 08:00 07/11/17 08:59 06/11/17 07:59 5 MG Losartan Potassium (coZAAR TAB) 100 mg DAILY PO 06/11/17 08:00 07/11/17 08:59 06/11/17 08:01 100 MG Potassium Chloride (Klor-Con Tab) 60 meq DAILY PO 06/11/17 08:00 07/11/17 08:59 06/11/17 08:00 60 MEQ Tamsulosin HCl (Flomax Cap) 0.4 mg DAILY PO 06/11/17 08:00 07/11/17 08:59 06/11/17 08:01 0.4 MG Oxycodone HCl (Roxicodone Immediate Rel Tab) 5 mg Q6H PRN PO 06/10/17 17:30 06/24/17 17:29 Vancomycin HCl 1500 mg/Sodium Chloride 530 ml @ 200 mls/hr Q10H IV 06/11/17 00:00 07/23/17 00:00 06/11/17 10:28 200 MLS/HR Insulin Aspart (novoLOG ASPART) SLIDING SCALE If C... ACHS SC 06/11/17 17:30 07/11/17 17:29 Review of Systems Review of Systems Constitutional: + fever, + chills Endocrine: + tired/sluggish Gastrointestinal: No abdominal pain, No indigestion, No vomiting, No constipation Cardiovascular: No chest pain, No palpitations, No swelling ankles/feet Musculoskeletal: + joint pain, + back pain Male : + infections, + nocturia more than once/night Physical Exam Vital Signs: Vital Signs Past 12 Hours Date Time Temp Pulse Resp B/P (MAP) Pulse Ox O2 Delivery O2 Flow Rate FiO2 06/11/17 16:20 36.5 66 18 118/74 (89) 93 Room Air 06/11/17 08:08 74 06/11/17 08:00 Room Air 06/11/17 07:57 36.4 60 18 134/74 (94) 95 Room Air Physical Exam: General Appearance: WD/WN, no apparent distress, + pertinent finding (mildly overweight) ENT: hearing grossly normal Neck: no adenopathy, no JVD, trachea midline Respiratory/Chest: no accessory muscle use Gastrointestinal: Abdomen: normal abdomen Bladder: normal bladder Renal: normal renal Liver: normal liver Stool Spec: not indicated (had APR with colostomy) Extremities: no pedal edema, no calf tenderness, normal capillary refill Neurologic/Psychiatric: alert, normal mood/affect, oriented x 3 Skin: normal color, warm/dry, no rash Lymphatic: no adenopathy Assessment & Plan Assessment & Plan large prostate on appropriate bph therapy will check some post void bladder scans to see if he is emptying incompletely. If so then the bladder is the reservoir for the persistent uti. Would then need urodynamics and if detrusor strong a turp, if detrusor weak then cic. If not retaining then the kidneys might be the reservoir. May need renal pelvis sampling as an outpatient in near future. Nothing on ct or renal ultrasound suggests a fistula from the bowel to the urinary tract. Will need iv abt for several weeks.
[2017-06-11] MEDS: OXYCODONE HCL IR 5 MG TAB (IMMEDIATE RELEASE) PO PRN (17:41)
--- NOTE | 2017-06-11 18:11 | Progress Note ---
Medicine Progress Note Date & Time of Visit: Jun 11, 2017 at 18:05. Subjective seen resting in bed, comfortable states back pain is about the same no leg weakness/numbness, incontinence has urinary frequency denies other symptoms Objective Last 8 Hrs Date Time Temp Pulse Resp B/P (MAP) Pulse Ox O2 Delivery O2 Flow Rate FiO2 06/11/17 16:20 36.5 66 18 118/74 (89) 93 Room Air Physical Exam: General- oriented x 3, not in distress, speaks in sentences with no effort Head- atraumatic Eyes- PERRL, EOMI, anicteric ENT- oropharynx clear Neck- supple, no JVD, no adenopathy, no thyromegaly; carotids +2/2, no bruits appreciated Lungs- clear breath sounds bilaterally, no rales/wheezes Heart- regular rhythm; no murmur, normal rate Abdomen- normal bowel sounds, soft, nontender Colostomy site: benign Extremities- no pretibial edema, no calf tenderness; peripheral pulses intact Neuro- alert, oriented x 3; no gross focal deficits Skin- warm & dry Laboratory Results: Last 24 Hours Test 06/10/17 19:57 06/11/17 05:38 06/11/17 07:32 06/11/17 11:38 Bedside Glucose 141 mg/dl 120 mg/dl 125 mg/dl White Blood Count 7.34 K/uL Red Blood Count 4.41 M/uL Hemoglobin 13.5 g/dL Hematocrit 39.3 % Mean Corpuscular Volume 89.1 fL Mean Corpuscular Hemoglobin 30.6 pg Mean Corpuscular Hemoglobin Concent 34.4 g/dl RDW Standard Deviation 49.2 fL RDW Coefficient of Variation 15.1 % Platelet Count 226 K/uL Mean Platelet Volume 8.8 fL Erythrocyte Sedimentation Rate 49 mm/hr Sodium Level 136 mmol/L Potassium Level 3.4 mmol/L Chloride Level 102 mmol/L Carbon Dioxide Level 26 mmol/L Anion Gap 8.0 mmol/L Blood Urea Nitrogen 14 mg/dl Creatinine 0.85 mg/dl Est Creatinine Clear Calc Drug Dose 84.7 ml/min Estimated GFR () 98.1 Estimated GFR (Non- 84.6 BUN/Creatinine Ratio 16.6 Random Glucose 117 mg/dl Estimated Average Glucose 120 mg/dl Hemoglobin A1c 5.8 % Calcium Level 8.9 mg/dl Magnesium Level 1.9 mg/dl C-Reactive Protein 1.41 mg/dl Test 06/11/17 16:53 Bedside Glucose 115 mg/dl Assessment & Plan L5-S1 OSTEOMYELITIS/DISCITIS -Patient presenting by referral of Dr. Post after outpatient MRI showed L5- S1 osteomyelitis/discitis; patient has been having increasing back pain for the past 5 weeks -Also noted patient has been having recurrent urinary tract infections since April, this is likely the source of the seeding for the osteomyelitis/discitis - Blood cultures: pending - Vanc + Ceftri IV ID consulted Ortho spine consulted RECURRENT URINARY TRACT INFECTIONS -Has been on 3 courses of antibiotics since April -UA today suggestive of UTI, urine culture obtained -CT ABD/pelvis from April did not show any signs of obstruction -Outpatient MRI today did show renal cysts - Urine culture: E coli, sensitivities pending - Urology consulted HYPERTENSION -BP currently controlled, continue atenolol, chlorthalidone, losartan DIABETES MELLITUS TYPE 2 -Hgb A1c 5.06 April 2015 -Hold oral agents and utilize SSI while hospitalized DVT PROPHYLAXIS - SCDs for now for possible invasive procedures DISPOSITION pending PT/OT evaluation Current Inpatient Medications: Current Inpatient Medications Medications (Trade) Dose Ordered Sig/Faith Route Start Time Stop Time Status Last Admin Dose Admin Acetaminophen (Tylenol Tab) 650 mg Q4H PRN PO 06/10/17 15:00 07/10/17 14:59 Ondansetron HCl (Zofran Inj) 4 mg Q6H PRN IV 06/10/17 15:00 07/10/17 14:59 Ceftriaxone Sodium 2000 mg/ Dextrose 70 ml @ 100 mls/hr Q24H IV 06/11/17 14:00 06/20/17 13:59 06/11/17 13:42 100 MLS/HR Miscellaneous Information (Consult) 1 ea UD PRN N/A 06/10/17 15:00 07/10/17 14:59 Glucose (Glucose 40% Gel) 15-30 GRAMS 15 GRAMS... UD PRN PO 06/10/17 15:00 07/10/17 14:59 Glucose (Glucose Chew Tab) 4-8 Tablets 4 Tabl... UD PRN PO 06/10/17 15:00 07/10/17 14:59 Dextrose (Dextrose 50% 50ML Syringe) 25-50ML OF 50% DW IV FOR... UD PRN IV 06/10/17 15:00 07/10/17 14:59 Glucagon (Glucagon Inj) 1 mg UD PRN SQ 06/10/17 15:00 07/10/17 14:59 Aspirin (Aspirin Chew) 81 mg DAILY PO 06/11/17 08:00 07/11/17 08:59 Atenolol (Tenormin Tab) 75 mg DAILY PO 06/11/17 08:00 07/11/17 08:59 06/11/17 08:01 75 MG Chlorthalidone (Hygroton Tab) 25 mg DAILY PO 06/11/17 08:00 07/11/17 08:59 06/11/17 08:00 25 MG Docusate Sodium (coLACE CAP) 100 mg BID PRN PO 06/10/17 15:15 07/10/17 15:14 Finasteride (Proscar Tab) 5 mg DAILY PO 06/11/17 08:00 07/11/17 08:59 06/11/17 07:59 5 MG Losartan Potassium (coZAAR TAB) 100 mg DAILY PO 06/11/17 08:00 07/11/17 08:59 06/11/17 08:01 100 MG Potassium Chloride (Klor-Con Tab) 60 meq DAILY PO 06/11/17 08:00 07/11/17 08:59 06/11/17 08:00 60 MEQ Tamsulosin HCl (Flomax Cap) 0.4 mg DAILY PO 06/11/17 08:00 07/11/17 08:59 06/11/17 08:01 0.4 MG Oxycodone HCl (Roxicodone Immediate Rel Tab) 5 mg Q6H PRN PO 06/10/17 17:30 06/24/17 17:29 06/11/17 17:41 5 MG Vancomycin HCl 1500 mg/Sodium Chloride 530 ml @ 200 mls/hr Q10H IV 06/11/17 00:00 07/23/17 00:00 06/11/17 10:28 200 MLS/HR Insulin Aspart (novoLOG ASPART) SLIDING SCALE If C... ACHS SC 06/11/17 17:30 07/11/17 17:29 06/11/17 17:46 6 UNITS
[2017-06-11] MEDS ORDERED: VANCOMYCIN TROUGH ONE (19:30)
--- NOTE | 2017-06-11 20:33 | Pharmacy Progress Note ---
Pharmacy Abx Dose Short Note Date of Service Jun 11, 2017. Assessment & Plan Assessment 77 year old male receiving Vancomycin for treatment of discitis with osteomyelitis in setting of persistent UTI. Day # 2 of antimicrobial therapy. * Currently receiving Vancomycin 1500mg IV q10 Plan Vancomycin * Trough level of 19.4 mcg/mL is therapeutic. However, this is an early level not yet reflective of steady state. Therefore, will slightly extend dosing interval to prevent supratherapeutic level. * Change to 1500 mg IV every 12 hours * Goal trough level for osteomyelitis : 15 to 20 mcg/mL * Trough level ordered for: 06/13/17 @ 0730 (again, an early level only prior to the 3rd dose so not reflective of steady state, but want to reassess dosing regimen earlier due to severity of illness) Pharmacy will continue to follow and will adjust dose/frequency as necessary. Thank you.
[2017-06-12 00:02] VITALS: BP 137/81; PULSE 55; TEMP 36.6; O2SAT 94
[2017-06-12 07:19] LABS: BASO % 1.1 %; BASO ABS # 0.09 K/uL (0-0.2); EOS % 2.6 %; HEMATOCRIT 38.7 % (42-52); HEMOGLOBIN 13.1 g/dL (14.0-18.0); IG# 0.09 K/uL (0.00-0.02); LYMPH % 18.1 %; LYMPH ABS # 1.42 K/uL (1.2-3.4); MEAN CELL VOLUME 88.6 fL (80-100); MEAN CORPUSCULAR HGB CONC 33.9 g/dl (32-36); MEAN PLATELET VOLUME 8.5 fL (7.4-10.4); MONO ABS # 0.86 K/uL (0.11-0.59); NEUT % 66.1 %; NEUT ABS # 5.17 K/uL (1.4-6.5); PLATELET COUNT 215 K/uL (130-400); RED CELL DISTRIBUTION WIDTH CV 15.1 % (11.5-14.5); RED CELL DISTRIBUTION WIDTH SD 48.8 fL (36.4-46.3); WHITE BLOOD COUNT 7.83 K/uL (4.8-10.8)
[2017-06-12 07:56] LABS: CALCIUM 9.2 mg/dl (8.5-10.1); CREATININE 0.9 mg/dl (0.60-1.40); POTASSIUM 3.4 mmol/L (3.5-5.1)
[2017-06-12] MEDS: ASPIRIN 81 MG CHEW PO SCH (08:00)
[2017-06-12 08:12] VITALS: BP 143/84; PULSE 57; TEMP 36.7; O2SAT 95
[2017-06-12] MEDS: LOSARTAN POTASSIUM 50 MG TAB PO SCH (09:51)
[2017-06-12] MEDS: POTASSIUM CHLORIDE 20 MEQ TABCR PO SCH ×2 (09:51→18:28)
[2017-06-12] MEDS: CHLORTHALIDONE 25 MG TAB PO SCH (09:52)
[2017-06-12] MEDS: FINASTERIDE 5 MG TAB PO SCH (09:52)
[2017-06-12] MEDS: TAMSULOSIN HCL 0.4 MG CAP PO SCH (09:52)
[2017-06-12] MEDS: VANCOMYCIN IV 1,500 MG in SODIUM CHLORIDE 0.9% 500ML 500 ML IV SCH ×2 (09:53→21:50)
[2017-06-12] MEDS: INSULIN ASPART 100 UNITS/ML 3 ML PEN SC SCH ×4 (09:59→21:58)
--- NOTE | 2017-06-12 10:28 | Progress Note ---
Medicine Progress Note Date & Time of Visit: Jun 12, 2017 at 10:22. Subjective seen resting in bed, comfortable states he feels improved today less back pain no leg weakness/numbness no problems voiding no other symptoms Objective Last 8 Hrs Date Time Temp Pulse Resp B/P (MAP) Pulse Ox O2 Delivery O2 Flow Rate FiO2 06/12/17 08:12 36.7 57 16 143/84 (103) 95 Room Air Physical Exam: General- oriented x 3, not in distress, speaks in sentences with no effort Eyes- anicteric Neck- supple, no JVD Lungs- clear breath sounds bilaterally Heart- regular rhythm; no murmur, normal rate Abdomen- normal bowel sounds, soft, nontender Extremities- no pretibial edema, no calf tenderness Neuro- alert, oriented x 3; no gross focal deficits Skin- warm & dry Laboratory Results: Last 24 Hours Test 06/11/17 11:38 06/11/17 16:53 06/11/17 19:25 06/11/17 20:21 Bedside Glucose 125 mg/dl 115 mg/dl 120 mg/dl Vancomycin Level Trough 19.4 mcg/ml Test 06/12/17 06:50 06/12/17 08:14 White Blood Count 7.83 K/uL Red Blood Count 4.37 M/uL Hemoglobin 13.1 g/dL Hematocrit 38.7 % Mean Corpuscular Volume 88.6 fL Mean Corpuscular Hemoglobin 30.0 pg Mean Corpuscular Hemoglobin Concent 33.9 g/dl Platelet Count 215 K/uL Mean Platelet Volume 8.5 fL Neutrophils (%) (Auto) 66.1 % Lymphocytes (%) (Auto) 18.1 % Monocytes (%) (Auto) 11.0 % Eosinophils (%) (Auto) 2.6 % Basophils (%) (Auto) 1.1 % Neutrophils # (Auto) 5.17 K/uL Lymphocytes # (Auto) 1.42 K/uL Monocytes # (Auto) 0.86 K/uL Eosinophils # (Auto) 0.20 K/uL Basophils # (Auto) 0.09 K/uL RDW Standard Deviation 48.8 fL RDW Coefficient of Variation 15.1 % Immature Granulocyte % (Auto) 1.1 % Immature Granulocyte # (Auto) 0.09 K/uL Sodium Level 136 mmol/L Potassium Level 3.4 mmol/L Chloride Level 100 mmol/L Carbon Dioxide Level 26 mmol/L Anion Gap 10.0 mmol/L Blood Urea Nitrogen 13 mg/dl Creatinine 0.90 mg/dl Est Creatinine Clear Calc Drug Dose 80.0 ml/min Estimated GFR () 95.8 Estimated GFR (Non- 82.7 BUN/Creatinine Ratio 13.9 Random Glucose 113 mg/dl Calcium Level 9.2 mg/dl Magnesium Level 2.0 mg/dl Bedside Glucose 116 mg/dl Assessment & Plan L5-S1 OSTEOMYELITIS/DISCITIS -Patient presenting by referral of Dr. Post after outpatient MRI showed L5- S1 osteomyelitis/discitis; patient has been having increasing back pain for the past 5 weeks -Also noted patient has been having recurrent urinary tract infections since April, this is likely the source of the seeding for the osteomyelitis/discitis - Blood cultures: negative so far Urine culture: (+) E coli - awaiting Ortho recommendations - ID Consulted Dr. Fuentes on Vanco + Ceftri IV awaiting further recommendations - PT/OT RECURRENT URINARY TRACT INFECTIONS -Has been on 3 courses of antibiotics since April -Outpatient MR did show renal cysts - Urine culture: E coli, sensitivities pending - Urology consulted Dr. Reid Has BPH on meds Bladder scan: normal- no urinary retention may need outpatient renal pelvis sampling ff up with Dr. Reid as outpatient HYPERTENSION -BP currently controlled, continue atenolol, chlorthalidone, losartan DIABETES MELLITUS TYPE 2 -Hgb A1c 5.06 April 2015 -Hold oral agents and utilize SSI while hospitalized DVT PROPHYLAXIS - SCDs DISPOSITION pending PT/OT evaluation Current Inpatient Medications: Current Inpatient Medications Medications (Trade) Dose Ordered Sig/Faith Route Start Time Stop Time Status Last Admin Dose Admin Acetaminophen (Tylenol Tab) 650 mg Q4H PRN PO 06/10/17 15:00 07/10/17 14:59 Ondansetron HCl (Zofran Inj) 4 mg Q6H PRN IV 06/10/17 15:00 07/10/17 14:59 Ceftriaxone Sodium 2000 mg/ Dextrose 70 ml @ 100 mls/hr Q24H IV 06/11/17 14:00 06/20/17 13:59 06/11/17 13:42 100 MLS/HR Miscellaneous Information (Consult) 1 ea UD PRN N/A 06/10/17 15:00 07/10/17 14:59 Glucose (Glucose 40% Gel) 15-30 GRAMS 15 GRAMS... UD PRN PO 06/10/17 15:00 07/10/17 14:59 Glucose (Glucose Chew Tab) 4-8 Tablets 4 Tabl... UD PRN PO 06/10/17 15:00 07/10/17 14:59 Dextrose (Dextrose 50% 50ML Syringe) 25-50ML OF 50% DW IV FOR... UD PRN IV 06/10/17 15:00 07/10/17 14:59 Glucagon (Glucagon Inj) 1 mg UD PRN SQ 06/10/17 15:00 07/10/17 14:59 Aspirin (Aspirin Chew) 81 mg DAILY PO 06/11/17 08:00 07/11/17 08:59 Atenolol (Tenormin Tab) 75 mg DAILY PO 06/11/17 08:00 07/11/17 08:59 06/11/17 08:01 75 MG Chlorthalidone (Hygroton Tab) 25 mg DAILY PO 06/11/17 08:00 07/11/17 08:59 06/12/17 09:52 25 MG Docusate Sodium (coLACE CAP) 100 mg BID PRN PO 06/10/17 15:15 07/10/17 15:14 Finasteride (Proscar Tab) 5 mg DAILY PO 06/11/17 08:00 07/11/17 08:59 06/12/17 09:52 5 MG Losartan Potassium (coZAAR TAB) 100 mg DAILY PO 06/11/17 08:00 07/11/17 08:59 06/12/17 09:51 100 MG Potassium Chloride (Klor-Con Tab) 60 meq DAILY PO 06/11/17 08:00 07/11/17 08:59 06/12/17 09:51 60 MEQ Tamsulosin HCl (Flomax Cap) 0.4 mg DAILY PO 06/11/17 08:00 07/11/17 08:59 06/12/17 09:52 0.4 MG Oxycodone HCl (Roxicodone Immediate Rel Tab) 5 mg Q6H PRN PO 06/10/17 17:30 06/24/17 17:29 06/11/17 17:41 5 MG Insulin Aspart (novoLOG ASPART) SLIDING SCALE If C... ACHS SC 06/11/17 17:30 07/11/17 17:29 06/12/17 09:59 4 UNITS Vancomycin HCl 1500 mg/Sodium Chloride 530 ml @ 200 mls/hr Q12H IV 06/12/17 08:00 07/24/17 07:59 06/12/17 09:53 200 MLS/HR Potassium Chloride (Klor-Con M10) 40 meq DAILY PO 06/12/17 18:00 07/12/17 17:59 UNV
--- NOTE | 2017-06-12 14:20 | DIAGNOSTIC IMAGING REPORT ---
LUMBAR SPINE 2 OR 3 VIEWS CLINICAL HISTORY: back pain standing films pain COMPARISON STUDY: None FINDINGS: Slight scoliosis. Vertebral body stature is normal. Mild degenerative vertebral this change L4-L5 and L5-S1. No evidence for compression deformity. Mild sclerosis of the vertebral endplates. No evidence for subluxation. IMPRESSION: Mild scoliosis. Mild degenerative disc change. No acute process. The above report was generated using voice recognition software. It may contain grammatical, syntax or spelling errors. Electronically signed by: Haseeb Mills M.D. 06/12/2017 2:19 PM Dictated Date/Time: 06/12/2017 2:18 PM
[2017-06-12] MEDS: CEFTRIAXONE SOD INJ 2,000 MG in DEXTROSE 5% 50ML 50 ML IV SCH (14:35)
--- NOTE | 2017-06-12 15:21 | Infectious Disease Progress Nt ---
Progress Note Date of Service Jun 12, 2017. Subjective Pt evaluation today including: conversation w/ patient, physical exam, chart review, lab review, review of studies, conversation w/ pre sales technical consultant, review of inpatient medication list Back pain slightly better today. Remains afebrile. Urine culture again positive for E coli, sensitive to ceftriaxone. All Other Systems: Reviewed and Negative Medications RUN DATE: 06/12/17 [facility] LAB PAGE 1 RUN TIME: 1007 Specimen Inquiry PATIENT: YAMILEX SALDAÑA LOC: [id number] U # : [id number] AGE/SX: 77/M ROOM: [facility] REG : 06/10/[address]: Justin Cortes MD : 1940 BED: 2 DIS : STATUS: ADM IN TLOC: SPEC #: [id number] KENNEDY: 06/10/17-1216 STATUS: COMP REQ #: [id number] RECD: 06/10/17-[address]: Anuel Wynn M.D. SOURCE: UR, CC ENTR: 06/10/17-[address] [facility] [address]: Rojas Harrington M.D. [facility]: ORDERED: CULTURE MATTCLECATARINA COMMENTS: Comments to Chisel Grinder SAME TIME DIFFERENT SITES Has Specimen Been Obtained/Collected? Y Procedure Result Verified Site URINE CULTURE Final 06/12/17-1007 Organism 1 ESCHERICHIA COLI COLONY COUNT >100,000 CFU/ml SENS SENSITIVITY TO FOLLOW 1. ESCHERICHIA COLI Target Route Dose RX AB Cost M.I.C. IQ ------ ----- ------ -- ------ -------- - ------ TRIMET/SULFA S <=2/38 AMPICILLIN R >16 AMPICILLIN/SUL I 16/8 CEFAZOLIN S <=8 CEFOXITIN S <=8 CEFOTAXIME S <=2 CEFTRIAXONE S <=1 CEFEPIME S <=4 CEFUROXIME S <=4 IMIPENEM S <=1 GENTAMICIN S <=4 TOBRAMYCIN S <=4 AMIKACIN S <=16 CIPROFLOXACIN S <=1 LEVOFLOXACIN S <=2 ERTAPENEM S <=1 NITROFURANTOIN S <=32 PIP/TAZO S <=16 S = SENSITIVE I = INTERMEDIATE R = RESISTANT END OF REPORT Current Inpatient Medications Medications (Trade) Dose Ordered Sig/Faith Route Start Time Stop Time Status Last Admin Dose Admin Acetaminophen (Tylenol Tab) 650 mg Q4H PRN PO 06/10/17 15:00 07/10/17 14:59 Ondansetron HCl (Zofran Inj) 4 mg Q6H PRN IV 06/10/17 15:00 07/10/17 14:59 Ceftriaxone Sodium 2000 mg/ Dextrose 70 ml @ 100 mls/hr Q24H IV 06/11/17 14:00 06/20/17 13:59 06/12/17 14:35 100 MLS/HR Miscellaneous Information (Consult) 1 ea UD PRN N/A 06/10/17 15:00 07/10/17 14:59 Glucose (Glucose 40% Gel) 15-30 GRAMS 15 GRAMS... UD PRN PO 06/10/17 15:00 07/10/17 14:59 Glucose (Glucose Chew Tab) 4-8 Tablets 4 Tabl... UD PRN PO 06/10/17 15:00 07/10/17 14:59 Dextrose (Dextrose 50% 50ML Syringe) 25-50ML OF 50% DW IV FOR... UD PRN IV 06/10/17 15:00 07/10/17 14:59 Glucagon (Glucagon Inj) 1 mg UD PRN SQ 06/10/17 15:00 07/10/17 14:59 Aspirin (Aspirin Chew) 81 mg DAILY PO 06/11/17 08:00 07/11/17 08:59 Atenolol (Tenormin Tab) 75 mg DAILY PO 06/11/17 08:00 07/11/17 08:59 06/11/17 08:01 75 MG Chlorthalidone (Hygroton Tab) 25 mg DAILY PO 06/11/17 08:00 07/11/17 08:59 06/12/17 09:52 25 MG Docusate Sodium (coLACE CAP) 100 mg BID PRN PO 06/10/17 15:15 07/10/17 15:14 Finasteride (Proscar Tab) 5 mg DAILY PO 06/11/17 08:00 07/11/17 08:59 06/12/17 09:52 5 MG Losartan Potassium (coZAAR TAB) 100 mg DAILY PO 06/11/17 08:00 07/11/17 08:59 06/12/17 09:51 100 MG Potassium Chloride (Klor-Con Tab) 60 meq DAILY PO 06/11/17 08:00 07/11/17 08:59 06/12/17 09:51 60 MEQ Tamsulosin HCl (Flomax Cap) 0.4 mg DAILY PO 06/11/17 08:00 07/11/17 08:59 06/12/17 09:52 0.4 MG Oxycodone HCl (Roxicodone Immediate Rel Tab) 5 mg Q6H PRN PO 06/10/17 17:30 06/24/17 17:29 06/11/17 17:41 5 MG Insulin Aspart (novoLOG ASPART) SLIDING SCALE If C... ACHS SC 06/11/17 17:30 07/11/17 17:29 06/12/17 14:40 8 UNITS Vancomycin HCl 1500 mg/Sodium Chloride 530 ml @ 200 mls/hr Q12H IV 06/12/17 08:00 07/24/17 07:59 06/12/17 09:53 200 MLS/HR Potassium Chloride (Klor-Con Tab) 40 meq DAILY@1800 PO 06/12/17 18:00 07/12/17 17:59 Objective Vital Signs Date Time Temp Pulse Resp B/P (MAP) Pulse Ox O2 Delivery O2 Flow Rate FiO2 06/12/17 08:12 36.7 57 16 143/84 (103) 95 Room Air 06/12/17 08:00 Room Air 06/12/17 00:02 36.6 55 18 137/81 (99) 94 Room Air 06/11/17 23:50 Room Air 06/11/17 16:20 36.5 66 18 118/74 (89) 93 Room Air 06/11/17 16:00 95 Room Air Physical Exam General Appearance: WD/WN, no apparent distress Eyes: normal inspection, EOMI, sclerae normal ENT: normal ENT inspection, pharynx normal Neck: supple, no adenopathy, thyroid normal, trachea midline Respiratory/Chest: chest non-tender, lungs clear, normal breath sounds, no respiratory distress Cardiovascular: regular rate, rhythm, no gallop, no murmur Abdomen: normal bowel sounds, non tender, soft, no organomegaly Extremities: non-tender, no calf tenderness, normal capillary refill Neurologic/Psychiatric: alert, oriented x 3 Skin: normal color, warm/dry, no rash Lymphatic: no adenopathy Laboratory Results RUN DATE: 06/12/17 [facility] LAB PAGE 1 RUN TIME: 1007 Specimen Inquiry PATIENT: YAMILEX SALDAÑA LOC: [id number] U # : [id number] AGE/SX: 77/M ROOM: [facility] REG : 06/10/[address]: Justin Cortes MD : 1940 BED: 2 DIS : STATUS: ADM IN TLOC: SPEC #: [id number] KENNEDY: 06/10/17 STATUS: GRECIA REQ #: [id number] RECD: 06/10/[address]: Anuel Wynn M.D. SOURCE: UR, CC ENTR: 06/10/17-[address] [facility] [address]: Rojas Harrington M.D. [facility]: ORDERED: CULTURE MATTCLECATARINA COMMENTS: Comments to Chisel Grinder SAME TIME DIFFERENT SITES Has Specimen Been Obtained/Collected? Y Procedure Result Verified Site URINE CULTURE Final 06/12/17-1007 Organism 1 ESCHERICHIA COLI COLONY COUNT >100,000 CFU/ml SENS SENSITIVITY TO FOLLOW 1. ESCHERICHIA COLI Target Route Dose RX AB Cost M.I.C. IQ ------ ----- ------ -- ------ -------- - ------ TRIMET/SULFA S <=2/38 AMPICILLIN R >16 AMPICILLIN/SUL I 16/8 CEFAZOLIN S <=8 CEFOXITIN S <=8 CEFOTAXIME S <=2 CEFTRIAXONE S <=1 CEFEPIME S <=4 CEFUROXIME S <=4 IMIPENEM S <=1 GENTAMICIN S <=4 TOBRAMYCIN S <=4 AMIKACIN S <=16 CIPROFLOXACIN S <=1 LEVOFLOXACIN S <=2 ERTAPENEM S <=1 NITROFURANTOIN S <=32 PIP/TAZO S <=16 S = SENSITIVE I = INTERMEDIATE R = RESISTANT END OF REPORT Last 24 Hours Test 06/11/17 16:53 06/11/17 19:25 06/11/17 20:21 06/12/17 06:50 Bedside Glucose 115 mg/dl 120 mg/dl Vancomycin Level Trough 19.4 mcg/ml White Blood Count 7.83 K/uL Red Blood Count 4.37 M/uL Hemoglobin 13.1 g/dL Hematocrit 38.7 % Mean Corpuscular Volume 88.6 fL Mean Corpuscular Hemoglobin 30.0 pg Mean Corpuscular Hemoglobin Concent 33.9 g/dl Platelet Count 215 K/uL Mean Platelet Volume 8.5 fL Neutrophils (%) (Auto) 66.1 % Lymphocytes (%) (Auto) 18.1 % Monocytes (%) (Auto) 11.0 % Eosinophils (%) (Auto) 2.6 % Basophils (%) (Auto) 1.1 % Neutrophils # (Auto) 5.17 K/uL Lymphocytes # (Auto) 1.42 K/uL Monocytes # (Auto) 0.86 K/uL Eosinophils # (Auto) 0.20 K/uL Basophils # (Auto) 0.09 K/uL RDW Standard Deviation 48.8 fL RDW Coefficient of Variation 15.1 % Immature Granulocyte % (Auto) 1.1 % Immature Granulocyte # (Auto) 0.09 K/uL Sodium Level 136 mmol/L Potassium Level 3.4 mmol/L Chloride Level 100 mmol/L Carbon Dioxide Level 26 mmol/L Anion Gap 10.0 mmol/L Blood Urea Nitrogen 13 mg/dl Creatinine 0.90 mg/dl Est Creatinine Clear Calc Drug Dose 80.0 ml/min Estimated GFR () 95.8 Estimated GFR (Non- 82.7 BUN/Creatinine Ratio 13.9 Random Glucose 113 mg/dl Calcium Level 9.2 mg/dl Magnesium Level 2.0 mg/dl Test 06/12/17 08:14 06/12/17 11:47 Bedside Glucose 116 mg/dl 107 mg/dl LUMBAR SPINE 2 OR 3 VIEWS CLINICAL HISTORY: back pain standing films pain COMPARISON STUDY: None FINDINGS: Slight scoliosis. Vertebral body stature is normal. Mild degenerative vertebral this change L4-L5 and L5-S1. No evidence for compression deformity. Mild sclerosis of the vertebral endplates. No evidence for subluxation. IMPRESSION: Mild scoliosis. Mild degenerative disc change. No acute process. The above report was generated using voice recognition software. It may contain grammatical, syntax or spelling errors. Electronically signed by: Haseeb Mills M.D. 06/12/2017 2:19 PM Dictated Date/Time: 06/12/2017 2:18 PM Assessment and Plan 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 Likely source of this infection would be persistent urinary tract infection. Isolate is sensitive to ceftriaxone, so this would provide adequate coverage. Will likely need 6-8 weeks of IV antibiotics. Will follow.
[2017-06-12 16:04] VITALS: BP 114/70; PULSE 84; TEMP 36.3; O2SAT 95
--- NOTE | 2017-06-12 17:25 | Progress Note ---
Subjective Date of Service: Jun 12, 2017. Subjective Pt evaluation today including: conversation w/ patient, chart review, lab review Voiding: no voiding problems patient feels ok. will be sent home on 6 weeks ceftriaxone. He has had one bladder scan so far showing normal emptying of 40mL pvr. Problem List Medical Problems: (1) Left flank pain Status: Acute (2) Leg pain, left Status: Acute (3) Pyelonephritis Status: Acute Review of Systems Constitutional: No fever, No chills, No sweats Respiratory: No cough, No shortness of breath Cardiac: No chest pain, No palpitations Abdomen: No nausea, No vomiting Objective Vital Signs Date Time Temp Pulse Resp B/P (MAP) Pulse Ox O2 Delivery O2 Flow Rate FiO2 06/12/17 16:04 36.3 84 18 114/70 (85) 95 Room Air 06/12/17 08:12 36.7 57 16 143/84 (103) 95 Room Air 06/12/17 08:00 Room Air 06/12/17 00:02 36.6 55 18 137/81 (99) 94 Room Air 06/11/17 23:50 Room Air Physical Exam General Appearance: WD/WN, no apparent distress ENT: hearing grossly normal Neck: trachea midline Respiratory/Chest: no accessory muscle use Neurologic/Psychiatric: alert, normal mood/affect, oriented x 3 Laboratory Results Last 24 Hours Test 06/11/17 19:25 06/11/17 20:21 06/12/17 06:50 06/12/17 08:14 Vancomycin Level Trough 19.4 mcg/ml Bedside Glucose 120 mg/dl 116 mg/dl White Blood Count 7.83 K/uL Red Blood Count 4.37 M/uL Hemoglobin 13.1 g/dL Hematocrit 38.7 % Mean Corpuscular Volume 88.6 fL Mean Corpuscular Hemoglobin 30.0 pg Mean Corpuscular Hemoglobin Concent 33.9 g/dl Platelet Count 215 K/uL Mean Platelet Volume 8.5 fL Neutrophils (%) (Auto) 66.1 % Lymphocytes (%) (Auto) 18.1 % Monocytes (%) (Auto) 11.0 % Eosinophils (%) (Auto) 2.6 % Basophils (%) (Auto) 1.1 % Neutrophils # (Auto) 5.17 K/uL Lymphocytes # (Auto) 1.42 K/uL Monocytes # (Auto) 0.86 K/uL Eosinophils # (Auto) 0.20 K/uL Basophils # (Auto) 0.09 K/uL RDW Standard Deviation 48.8 fL RDW Coefficient of Variation 15.1 % Immature Granulocyte % (Auto) 1.1 % Immature Granulocyte # (Auto) 0.09 K/uL Sodium Level 136 mmol/L Potassium Level 3.4 mmol/L Chloride Level 100 mmol/L Carbon Dioxide Level 26 mmol/L Anion Gap 10.0 mmol/L Blood Urea Nitrogen 13 mg/dl Creatinine 0.90 mg/dl Est Creatinine Clear Calc Drug Dose 80.0 ml/min Estimated GFR () 95.8 Estimated GFR (Non- 82.7 BUN/Creatinine Ratio 13.9 Random Glucose 113 mg/dl Calcium Level 9.2 mg/dl Magnesium Level 2.0 mg/dl Test 06/12/17 11:47 06/12/17 17:09 Bedside Glucose 107 mg/dl 99 mg/dl Assessment and Plan e coli cystitis has seeded a disc. no source found thus far. he has a normal PVR so incomplete emptying is not the cause. plan outpatient cysto. May need selective sampling of kidneys in future if nothing found in the bladder.
[2017-06-12 23:20] VITALS: BP 120/75; PULSE 64; TEMP 36.8; O2SAT 98
[2017-06-13] MEDS ORDERED: VANCOMYCIN TROUGH ONE (07:30)
[2017-06-13 07:46] VITALS: BP 147/88; PULSE 66; TEMP 36.5; O2SAT 96
[2017-06-13 08:09] LABS: BASO % 1.3 %; BASO ABS # 0.09 K/uL (0-0.2); HEMATOCRIT 38.7 % (42-52); HEMOGLOBIN 13.3 g/dL (14.0-18.0); IG# 0.09 K/uL (0.00-0.02); LYMPH % 19.2 %; LYMPH ABS # 1.28 K/uL (1.2-3.4); MEAN CELL VOLUME 88.4 fL (80-100); MEAN CORPUSCULAR HEMOGLOBIN 30.4 pg (25-34); MEAN CORPUSCULAR HGB CONC 34.4 g/dl (32-36); MEAN PLATELET VOLUME 8.5 fL (7.4-10.4); MONO % 9.3 %; MONO ABS # 0.62 K/uL (0.11-0.59); NEUT % 65.9 %; PLATELET COUNT 213 K/uL (130-400); RED CELL DISTRIBUTION WIDTH CV 15.1 % (11.5-14.5); RED CELL DISTRIBUTION WIDTH SD 48.6 fL (36.4-46.3); WHITE BLOOD COUNT 6.68 K/uL (4.8-10.8)
[2017-06-13 08:37] LABS: CREATININE 0.87 mg/dl (0.60-1.40); POTASSIUM 3.3 mmol/L (3.5-5.1)
[2017-06-13] MEDS: TAMSULOSIN HCL 0.4 MG CAP PO SCH (09:18)
[2017-06-13] MEDS: CHLORTHALIDONE 25 MG TAB PO SCH (09:19)
[2017-06-13] MEDS: POTASSIUM CHLORIDE 20 MEQ TABCR PO SCH ×2 (09:19→18:10)
[2017-06-13] MEDS: FINASTERIDE 5 MG TAB PO SCH (09:20)
[2017-06-13] MEDS: LOSARTAN POTASSIUM 50 MG TAB PO SCH (09:21)
[2017-06-13] MEDS: ASPIRIN 81 MG CHEW PO SCH (09:23)
[2017-06-13] MEDS: INSULIN ASPART 100 UNITS/ML 3 ML PEN SC SCH ×4 (09:27→20:55)
--- NOTE | 2017-06-13 10:40 | Pharmacy Progress Note ---
Pharmacy Abx Dose Short Note Date of Service Jun 13, 2017. Assessment & Plan Item Value Date Time Vancomycin Level Trough 23.9 mcg/ml 06/13/17 0734 Assessment 77 year old male receiving IV Rocephin and Vancomycin for treatment of diskitis with osteomyelitis involving L5-S1 area, positive urine culture to EColi. Likely source of infection is persistent UTI. Sensitive to Rocephin, 6-8 weeks antibiotics per ID. Blood cultures - no growth to date. Day # 4 of antimicrobial therapy. Plan Vancomycin * Trough level of 23.9 mcg/mL is supratherapeutic. * Change to Vancomycin 1250 mg IV every 14 hours (16 hours after 2000 dose from last night) * Goal trough level for osteo : 15 to 20 mcg/mL * Trough level ordered for: 06/15/17 prior to 0600 dose Pharmacy will continue to follow and will adjust dose/frequency as necessary. Thank you.
--- NOTE | 2017-06-13 11:12 | Infectious Disease Progress Nt ---
Progress Note Date of Service Jun 13, 2017. Subjective Pt evaluation today including: conversation w/ patient, conversation w/ family , physical exam, chart review, lab review, review of studies, conversation w/ performance consultant, review of inpatient medication list Back pain slightly better this morning. Remains afebrile. Blood cultures remain negative. Urine culture with E coli. X-rays of lumbar spine unremarkable. All Other Systems: Reviewed and Negative Medications Current Inpatient Medications Medications (Trade) Dose Ordered Sig/Faith Route Start Time Stop Time Status Last Admin Dose Admin Acetaminophen (Tylenol Tab) 650 mg Q4H PRN PO 06/10/17 15:00 07/10/17 14:59 Ondansetron HCl (Zofran Inj) 4 mg Q6H PRN IV 06/10/17 15:00 07/10/17 14:59 Ceftriaxone Sodium 2000 mg/ Dextrose 70 ml @ 100 mls/hr Q24H IV 06/11/17 14:00 06/20/17 13:59 06/12/17 14:35 100 MLS/HR Miscellaneous Information (Consult) 1 ea UD PRN N/A 06/10/17 15:00 07/10/17 14:59 Glucose (Glucose 40% Gel) 15-30 GRAMS 15 GRAMS... UD PRN PO 06/10/17 15:00 07/10/17 14:59 Glucose (Glucose Chew Tab) 4-8 Tablets 4 Tabl... UD PRN PO 06/10/17 15:00 07/10/17 14:59 Dextrose (Dextrose 50% 50ML Syringe) 25-50ML OF 50% DW IV FOR... UD PRN IV 06/10/17 15:00 07/10/17 14:59 Glucagon (Glucagon Inj) 1 mg UD PRN SQ 06/10/17 15:00 07/10/17 14:59 Aspirin (Aspirin Chew) 81 mg DAILY PO 06/11/17 08:00 07/11/17 08:59 06/13/17 09:23 81 MG Atenolol (Tenormin Tab) 75 mg DAILY PO 06/11/17 08:00 07/11/17 08:59 06/13/17 09:18 75 MG Chlorthalidone (Hygroton Tab) 25 mg DAILY PO 06/11/17 08:00 07/11/17 08:59 06/13/17 09:19 25 MG Docusate Sodium (coLACE CAP) 100 mg BID PRN PO 06/10/17 15:15 07/10/17 15:14 Finasteride (Proscar Tab) 5 mg DAILY PO 06/11/17 08:00 07/11/17 08:59 06/13/17 09:20 5 MG Losartan Potassium (coZAAR TAB) 100 mg DAILY PO 06/11/17 08:00 07/11/17 08:59 06/13/17 09:21 100 MG Potassium Chloride (Klor-Con Tab) 60 meq DAILY PO 06/11/17 08:00 07/11/17 08:59 06/13/17 09:19 60 MEQ Tamsulosin HCl (Flomax Cap) 0.4 mg DAILY PO 06/11/17 08:00 07/11/17 08:59 06/13/17 09:18 0.4 MG Oxycodone HCl (Roxicodone Immediate Rel Tab) 5 mg Q6H PRN PO 06/10/17 17:30 06/24/17 17:29 06/11/17 17:41 5 MG Insulin Aspart (novoLOG ASPART) SLIDING SCALE If C... ACHS SC 06/11/17 17:30 07/11/17 17:29 06/13/17 09:27 4 UNITS Potassium Chloride (Klor-Con Tab) 40 meq DAILY@1800 PO 06/12/17 18:00 07/12/17 17:59 06/12/17 18:28 40 MEQ Vancomycin HCl 1250 mg/Sodium Chloride 275 ml @ 125 mls/hr Q14H IV 06/13/17 12:00 07/25/17 11:59 Objective Vital Signs Date Time Temp Pulse Resp B/P (MAP) Pulse Ox O2 Delivery O2 Flow Rate FiO2 06/13/17 07:46 36.5 66 16 147/88 (107) 96 Room Air 06/13/17 07:15 Room Air 06/13/17 00:45 Room Air 06/12/17 23:20 36.8 64 18 120/75 (90) 98 Room Air 06/12/17 16:04 36.3 84 18 114/70 (85) 95 Room Air 06/12/17 16:00 Room Air Physical Exam General Appearance: WD/WN, no apparent distress Eyes: normal inspection, EOMI, sclerae normal ENT: normal ENT inspection, hearing grossly normal, pharynx normal Neck: supple, no adenopathy, thyroid normal, trachea midline Respiratory/Chest: chest non-tender, lungs clear, normal breath sounds, no respiratory distress Cardiovascular: regular rate, rhythm, no gallop, no murmur Abdomen: normal bowel sounds, non tender, soft, no organomegaly Extremities: non-tender, no calf tenderness Neurologic/Psychiatric: alert, oriented x 3 Skin: normal color, warm/dry, no rash Lymphatic: no adenopathy Laboratory Results Last 24 Hours Test 06/12/17 11:47 06/12/17 17:09 06/12/17 19:54 06/13/17 07:34 Bedside Glucose 107 mg/dl 99 mg/dl 159 mg/dl White Blood Count 6.68 K/uL Red Blood Count 4.38 M/uL Hemoglobin 13.3 g/dL Hematocrit 38.7 % Mean Corpuscular Volume 88.4 fL Mean Corpuscular Hemoglobin 30.4 pg Mean Corpuscular Hemoglobin Concent 34.4 g/dl Platelet Count 213 K/uL Mean Platelet Volume 8.5 fL Neutrophils (%) (Auto) 65.9 % Lymphocytes (%) (Auto) 19.2 % Monocytes (%) (Auto) 9.3 % Eosinophils (%) (Auto) 3.0 % Basophils (%) (Auto) 1.3 % Neutrophils # (Auto) 4.40 K/uL Lymphocytes # (Auto) 1.28 K/uL Monocytes # (Auto) 0.62 K/uL Eosinophils # (Auto) 0.20 K/uL Basophils # (Auto) 0.09 K/uL RDW Standard Deviation 48.6 fL RDW Coefficient of Variation 15.1 % Immature Granulocyte % (Auto) 1.3 % Immature Granulocyte # (Auto) 0.09 K/uL Sodium Level 137 mmol/L Potassium Level 3.3 mmol/L Chloride Level 102 mmol/L Carbon Dioxide Level 26 mmol/L Anion Gap 8.0 mmol/L Blood Urea Nitrogen 14 mg/dl Creatinine 0.87 mg/dl Est Creatinine Clear Calc Drug Dose 82.8 ml/min Estimated GFR () 97.2 Estimated GFR (Non- 83.8 BUN/Creatinine Ratio 15.5 Random Glucose 133 mg/dl Calcium Level 9.0 mg/dl Vancomycin Level Trough 23.9 mcg/ml Test 06/13/17 07:49 Bedside Glucose 140 mg/dl Assessment and Plan 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 Likely source of this infection would be persistent urinary tract infection. Isolate is sensitive to ceftriaxone, so this would provide adequate coverage. Will likely need 6-8 weeks of IV antibiotics. Will follow.
[2017-06-13] MEDS: CEFTRIAXONE SOD INJ 2,000 MG in DEXTROSE 5% 50ML 50 ML IV SCH (13:41)
[2017-06-13] MEDS: VANCOMYCIN IV 1,250 MG in SODIUM CHLORIDE 0.9% 250ML 250 ML IV SCH (13:41)
--- NOTE | 2017-06-13 16:02 | Progress Note ---
Internal Med Progress Note Date of Service: Jun 13, 2017. Provider Documentation: SUBJECTIVE: Seen and examined at bedside Back pain is controlled Denies chest pain, SOB, dizziness, nausea, abd pain Also denies urinary symptoms Family concerned about patient's condition: explained in detail No other complaints OBJECTIVE: Vital Signs-as noted below Physical Exam: General Appearance:Moderately built and nourished, no apparent distress Head: normocephalic, Atraumatic Eyes: normal inspection, EOMI, PERRL Neck: supple, Trachea midline Respiratory/Chest: Normal breath sounds, CTA Cardiovascular: S1, S2, No murmur Abdomen/GI:Soft, Non tender, Bowel sounds present Extremities/Musculoskelatal:normal inspection, no edema Neurologic/Psych:AAOX3, grossly no focal neurological deficits Skin: normal color, warm Lab data as noted below. ASSESSMENT & PLAN: L5-S1 Osteomyelitis/Discitis Patient presented on referral by Dr. Post after outpatient MRI showed L5-S1 osteomyelitis/discitis Reports increasing back pain for the past 5 weeks Also noted patient has been having recurrent urinary tract infections since April, this is likely the source of the seeding for the osteomyelitis/discitis Blood cultures: negative so far Urine culture: (+) E coli awaiting Ortho recommendations Appreciate ID input Continue IV Vanco and Ceftriaxone Needs PICC line prior to DC Lumbar X ray: Mild scoliosis. Mild degenerative disc change. No acute process. PT/OT Recurrent UTIs: Has been on 3 courses of antibiotics since April Outpatient MR did show renal cysts Urine culture: E coli Appreciate Urology Input Has BPH on meds Bladder scan: normal- no urinary retention Renal USD: Stable bilateral renal cysts, No hydronephrosis, Trace perinephric fluid, unchanged, Prostatomegaly. Needs outpatient cysto, and possible selective sampling of kidneys in future if Cysto normal Needs follow up with Dr. Reid as outpatient Hypokalemia: Continue potassium supplements monitor HYPERTENSION Stable Continue atenolol, chlorthalidone, losartan DM II: Hgb A1c 5.06 April 2015 Hold oral agents and utilize SSI while hospitalized DVT Px: SCDs Disposition: To be determined PT/OT evaluation Vital Signs: Date Time Temp Pulse Resp B/P (MAP) Pulse Ox O2 Delivery O2 Flow Rate FiO2 06/13/17 07:46 36.5 66 16 147/88 (107) 96 Room Air 06/13/17 07:15 Room Air 06/13/17 00:45 Room Air 06/12/17 23:20 36.8 64 18 120/75 (90) 98 Room Air Lab Results: Results Past 24 Hours Test 06/12/17 17:09 06/12/17 19:54 06/13/17 07:34 06/13/17 07:49 Range/Units Bedside Glucose 99 159 140 70-99 mg/dl White Blood Count 6.68 4.8-10.8 K/uL Red Blood Count 4.38 4.7-6.1 M/uL Hemoglobin 13.3 14.0-18.0 g/dL Hematocrit 38.7 42-52 % Mean Corpuscular Volume 88.4 80-100 fL Mean Corpuscular Hemoglobin 30.4 25-34 pg Mean Corpuscular Hemoglobin Concent 34.4 32-36 g/dl Platelet Count 213 130-400 K/uL Mean Platelet Volume 8.5 7.4-10.4 fL Neutrophils (%) (Auto) 65.9 % Lymphocytes (%) (Auto) 19.2 % Monocytes (%) (Auto) 9.3 % Eosinophils (%) (Auto) 3.0 % Basophils (%) (Auto) 1.3 % Neutrophils # (Auto) 4.40 1.4-6.5 K/uL Lymphocytes # (Auto) 1.28 1.2-3.4 K/uL Monocytes # (Auto) 0.62 0.11-0.59 K/uL Eosinophils # (Auto) 0.20 0-0.5 K/uL Basophils # (Auto) 0.09 0-0.2 K/uL RDW Standard Deviation 48.6 36.4-46.3 fL RDW Coefficient of Variation 15.1 11.5-14.5 % Immature Granulocyte % (Auto) 1.3 % Immature Granulocyte # (Auto) 0.09 0.00-0.02 K/uL Sodium Level 137 136-145 mmol/L Potassium Level 3.3 3.5-5.1 mmol/L Chloride Level 102 98-107 mmol/L Carbon Dioxide Level 26 21-32 mmol/L Anion Gap 8.0 3-11 mmol/L Blood Urea Nitrogen 14 7-18 mg/dl Creatinine 0.87 0.60-1.40 mg/dl Est Creatinine Clear Calc Drug Dose 82.8 ml/min Estimated GFR () 97.2 Estimated GFR (Non- 83.8 BUN/Creatinine Ratio 15.5 10-20 Random Glucose 133 70-99 mg/dl Calcium Level 9.0 8.5-10.1 mg/dl Vancomycin Level Trough 23.9 SEE COMMENT mcg/ml Test 06/13/17 11:49 Range/Units Bedside Glucose 102 70-99 mg/dl
[2017-06-13] MEDS ORDERED: POTASSIUM CHLORIDE 10 MEQ TABCR PO ONE (16:45)
[2017-06-13 17:15] VITALS: BP 124/81; PULSE 61; TEMP 36.7; O2SAT 95
[2017-06-14 00:08] VITALS: BP 132/80; PULSE 62; TEMP 36.6; O2SAT 95
[2017-06-14] MEDS: VANCOMYCIN IV 1,250 MG in SODIUM CHLORIDE 0.9% 250ML 250 ML IV SCH (01:44)
[2017-06-14 08:00] VITALS: O2SAT 95
[2017-06-14 08:24] VITALS: BP 131/78; PULSE 72; TEMP 36.6; O2SAT 95
[2017-06-14] MEDS: LOSARTAN POTASSIUM 50 MG TAB PO SCH (08:29)
[2017-06-14] MEDS: CHLORTHALIDONE 25 MG TAB PO SCH (08:30)
[2017-06-14] MEDS: TAMSULOSIN HCL 0.4 MG CAP PO SCH (08:30)
[2017-06-14] MEDS: FINASTERIDE 5 MG TAB PO SCH (08:32)
[2017-06-14] MEDS: POTASSIUM CHLORIDE 20 MEQ TABCR PO SCH ×2 (08:32→17:38)
[2017-06-14] MEDS: ASPIRIN 81 MG CHEW PO SCH (08:35)
[2017-06-14] MEDS: INSULIN ASPART 100 UNITS/ML 3 ML PEN SC SCH ×4 (08:37→20:08)
[2017-06-14 09:54] LABS: BASO % 1.1 %; BASO ABS # 0.09 K/uL (0-0.2); EOS % 1.8 %; EOS ABS # 0.15 K/uL (0-0.5); HEMATOCRIT 39.1 % (42-52); HEMOGLOBIN 13.4 g/dL (14.0-18.0); IG# 0.08 K/uL (0.00-0.02); LYMPH % 14.8 %; LYMPH ABS # 1.21 K/uL (1.2-3.4); MEAN CELL VOLUME 88.3 fL (80-100); MEAN CORPUSCULAR HEMOGLOBIN 30.2 pg (25-34); MEAN CORPUSCULAR HGB CONC 34.3 g/dl (32-36); MEAN PLATELET VOLUME 8.6 fL (7.4-10.4); MONO % 6.6 %; MONO ABS # 0.54 K/uL (0.11-0.59); NEUT % 74.7 %; PLATELET COUNT 238 K/uL (130-400); RED CELL DISTRIBUTION WIDTH SD 48.7 fL (36.4-46.3); WHITE BLOOD COUNT 8.17 K/uL (4.8-10.8)
[2017-06-14 10:29] LABS: CALCIUM 9.2 mg/dl (8.5-10.1); CREATININE 0.99 mg/dl (0.60-1.40); POTASSIUM 3.1 mmol/L (3.5-5.1)
--- NOTE | 2017-06-14 13:00 | Progress Note ---
Internal Med Progress Note Date of Service: Jun 14, 2017. Provider Documentation: SUBJECTIVE: Seen and examined at bedside Back pain is better but worsens with ambulation Denies chest pain, SOB, dizziness, nausea, abd pain No other complaints Family at bedside OBJECTIVE: Vital Signs-as noted below Physical Exam: General Appearance:Moderately built and nourished, no apparent distress Head: normocephalic, Atraumatic Eyes: normal inspection, EOMI, PERRL Neck: supple, Trachea midline Respiratory/Chest: Normal breath sounds, CTA Cardiovascular: S1, S2, No murmur Abdomen/GI:Soft, Non tender, Bowel sounds present Extremities/Musculoskelatal:normal inspection, no edema Neurologic/Psych:AAOX3, grossly no focal neurological deficits Skin: normal color, warm Lab data as noted below. ASSESSMENT & PLAN: L5-S1 Osteomyelitis/Discitis Patient presented on referral by Dr. Post after outpatient MRI showed L5-S1 osteomyelitis/discitis Reports increasing back pain for the past 5 weeks Also noted patient has been having recurrent urinary tract infections since April, this is likely the source of the seeding for the osteomyelitis/discitis Blood cultures: negative so far Urine culture: (+) E coli awaiting Ortho recommendations Appreciate ID input DC IV Vanco Continue IV Ceftriaxone to complete 6 week course Will get PICC line placed prior to DC Lumbar X ray: Mild scoliosis. Mild degenerative disc change. No acute process. PT/OT Recurrent UTIs: Has been on 3 courses of antibiotics since April Outpatient MR did show renal cysts Urine culture: E coli Appreciate Urology Input Has BPH on meds Bladder scan: normal- no urinary retention Renal USD: Stable bilateral renal cysts, No hydronephrosis, Trace perinephric fluid, unchanged, Prostatomegaly. Needs outpatient cysto, and possible selective sampling of kidneys in future if Cysto normal Needs follow up with Dr. Reid as outpatient Chronic Hypokalemia: on potassium supplements 60mg daily at home Continue potassium supplements monitor HYPERTENSION Stable Continue atenolol, chlorthalidone, losartan DM II: Hgb A1c 5.06 April 2015 Hold oral agents and utilize SSI while hospitalized DVT Px: SCDs Disposition: To be determined PT/OT evaluation Vital Signs: Date Time Temp Pulse Resp B/P (MAP) Pulse Ox O2 Delivery O2 Flow Rate FiO2 06/14/17 08:24 36.6 72 20 131/78 (95) 95 06/14/17 08:00 95 Room Air 06/14/17 00:08 36.6 62 19 132/80 (97) 95 Room Air 06/14/17 00:00 Room Air 06/13/17 20:00 Room Air 06/13/17 17:15 36.7 61 18 124/81 (95) 95 Room Air Lab Results: Results Past 24 Hours Test 06/13/17 16:53 06/13/17 20:32 06/14/17 08:05 06/14/17 09:39 Range/Units Bedside Glucose 103 112 166 70-99 mg/dl White Blood Count 8.17 4.8-10.8 K/uL Red Blood Count 4.43 4.7-6.1 M/uL Hemoglobin 13.4 14.0-18.0 g/dL Hematocrit 39.1 42-52 % Mean Corpuscular Volume 88.3 80-100 fL Mean Corpuscular Hemoglobin 30.2 25-34 pg Mean Corpuscular Hemoglobin Concent 34.3 32-36 g/dl Platelet Count 238 130-400 K/uL Mean Platelet Volume 8.6 7.4-10.4 fL Neutrophils (%) (Auto) 74.7 % Lymphocytes (%) (Auto) 14.8 % Monocytes (%) (Auto) 6.6 % Eosinophils (%) (Auto) 1.8 % Basophils (%) (Auto) 1.1 % Neutrophils # (Auto) 6.10 1.4-6.5 K/uL Lymphocytes # (Auto) 1.21 1.2-3.4 K/uL Monocytes # (Auto) 0.54 0.11-0.59 K/uL Eosinophils # (Auto) 0.15 0-0.5 K/uL Basophils # (Auto) 0.09 0-0.2 K/uL RDW Standard Deviation 48.7 36.4-46.3 fL RDW Coefficient of Variation 15.0 11.5-14.5 % Immature Granulocyte % (Auto) 1.0 % Immature Granulocyte # (Auto) 0.08 0.00-0.02 K/uL Sodium Level 135 136-145 mmol/L Potassium Level 3.1 3.5-5.1 mmol/L Chloride Level 101 98-107 mmol/L Carbon Dioxide Level 24 21-32 mmol/L Anion Gap 10.0 3-11 mmol/L Blood Urea Nitrogen 10 7-18 mg/dl Creatinine 0.99 0.60-1.40 mg/dl Est Creatinine Clear Calc Drug Dose 72.7 ml/min Estimated GFR () 85.4 Estimated GFR (Non- 73.7 BUN/Creatinine Ratio 10.5 10-20 Random Glucose 207 70-99 mg/dl Calcium Level 9.2 8.5-10.1 mg/dl Magnesium Level 1.9 1.8-2.4 mg/dl Test 06/14/17 11:34 Range/Units Bedside Glucose 149 70-99 mg/dl
[2017-06-14] MEDS: CEFTRIAXONE SOD INJ 2,000 MG in DEXTROSE 5% 50ML 50 ML IV SCH (13:26)
[2017-06-14] MEDS: POTASSIUM CHLR 10 MEQ / WTR 10 MEQ in PREMIXED WATER 100 ML IV SCH ×2 (13:26→15:54)
--- NOTE | 2017-06-14 14:13 | Orthopedic Consultation ---
Orthopedic Consultation Date of Consultation: Jun 14, 2017. Attending Physician: Balwinder Manzano MD Reason for Consultation: Lumbar discitis History of Present Illness This is a 77-year-old male who was seen by Dr. Reich in the office earlier this week. Based on his MRI findings he was sent to the emergency room for admission and medical evaluation. He states he has had a partially 3 weeks of back and left leg pain. He does have a history of urinary tract infections. MRI does demonstrate evidence of discitis at the L5-S1 level with evidence of encroaching the traversing S1 nerve root on the left. Today he states his leg symptoms are worse with sitting. He gets relief with lying supine. When he ambulates he has pain in the calf only. He does not describe buttock or posterior thigh pain when ambulating. The right lower extremity has been asymptomatic. Past Medical/Surgical History Medical Problems: (1) Left flank pain Status: Acute (2) Leg pain, left Status: Acute (3) Pyelonephritis Status: Acute Family History FH: cancer MOTHER Social History Smoking Status: Former Smoker Alcohol Use: occasionally Marital Status: Housing Status: lives with significant other Occupation Status: retired Allergies Coded Allergies: YUMIKO Inhibitors (Verified Adverse Reaction, Mild, COUGH, 06/10/17) Home Medications Scheduled Aspirin ([facility] Keith Low Dose Aspiri), 81 MG PO DAILY Atenolol (Tenormin), 75 MG PO DAILY Chlorthalidone (Chlorthalidone), 25 MG PO DAILY Finasteride (Finasteride), 5 MG PO DAILY Glipizide (Glipizide), 2.5 MG PO BID Losartan Potassium (Cozaar), 100 MG PO DAILY Metformin Hcl (Glucophage), 500 MG PO TID Potassium Ext Rel (Klor-Con), 60 MEQ PO DAILY Tamsulosin Hcl (Flomax), 0.4 MG PO DAILY Scheduled PRN Docusate Sodium (Docusate Sodium), 1 CAP PO BID PRN for Constipation Current Inpatient Medications Current Inpatient Medications Medications (Trade) Dose Ordered Sig/Faith Route Start Time Stop Time Status Last Admin Dose Admin Acetaminophen (Tylenol Tab) 650 mg Q4H PRN PO 06/10/17 15:00 07/10/17 14:59 Ondansetron HCl (Zofran Inj) 4 mg Q6H PRN IV 3/12/18 15:00 07/10/17 14:59 Ceftriaxone Sodium 2000 mg/ Dextrose 70 ml @ 100 mls/hr Q24H IV 06/11/17 14:00 06/20/17 13:59 06/14/17 13:26 100 MLS/HR Glucose (Glucose 40% Gel) 15-30 GRAMS 15 GRAMS... UD PRN PO 06/10/17 15:00 07/10/17 14:59 Glucose (Glucose Chew Tab) 4-8 Tablets 4 Tabl... UD PRN PO 06/10/17 15:00 07/10/17 14:59 Dextrose (Dextrose 50% 50ML Syringe) 25-50ML OF 50% DW IV FOR... UD PRN IV 06/10/17 15:00 07/10/17 14:59 Glucagon (Glucagon Inj) 1 mg UD PRN SQ 06/10/17 15:00 07/10/17 14:59 Aspirin (Aspirin Chew) 81 mg DAILY PO 06/11/17 08:00 07/11/17 08:59 06/14/17 08:35 81 MG Atenolol (Tenormin Tab) 75 mg DAILY PO 06/11/17 08:00 07/11/17 08:59 06/14/17 08:32 75 MG Chlorthalidone (Hygroton Tab) 25 mg DAILY PO 06/11/17 08:00 07/11/17 08:59 06/14/17 08:30 25 MG Docusate Sodium (coLACE CAP) 100 mg BID PRN PO 06/10/17 15:15 07/10/17 15:14 Finasteride (Proscar Tab) 5 mg DAILY PO 06/11/17 08:00 07/11/17 08:59 06/14/17 08:32 5 MG Losartan Potassium (coZAAR TAB) 100 mg DAILY PO 06/11/17 08:00 07/11/17 08:59 06/14/17 08:29 100 MG Potassium Chloride (Klor-Con Tab) 60 meq DAILY PO 06/11/17 08:00 07/11/17 08:59 06/14/17 08:32 60 MEQ Tamsulosin HCl (Flomax Cap) 0.4 mg DAILY PO 06/11/17 08:00 07/11/17 08:59 06/14/17 08:30 0.4 MG Oxycodone HCl (Roxicodone Immediate Rel Tab) 5 mg Q6H PRN PO 06/10/17 17:30 06/24/17 17:29 06/11/17 17:41 5 MG Insulin Aspart (novoLOG ASPART) SLIDING SCALE If C... ACHS SC 06/11/17 17:30 07/11/17 17:29 06/14/17 13:26 8 UNITS Potassium Chloride (Klor-Con Tab) 40 meq DAILY@1800 PO 06/12/17 18:00 07/12/17 17:59 06/13/17 18:10 40 MEQ Potassium Chloride 10 meq/ Prmx 100 ml @ 100 mls/hr Q1H IV 06/14/17 13:30 06/14/17 15:29 06/14/17 13:26 100 MLS/HR Physical Exam Date Time Temp Pulse Resp B/P (MAP) Pulse Ox O2 Delivery O2 Flow Rate FiO2 06/14/17 08:24 36.6 72 20 131/78 (95) 95 06/14/17 08:00 95 Room Air 06/14/17 00:08 36.6 62 19 132/80 (97) 95 Room Air 06/14/17 00:00 Room Air 06/13/17 20:00 Room Air 06/13/17 17:15 36.7 61 18 124/81 (95) 95 Room Air On exam he exhibits no significant pain to percussion or palpation of the thoracolumbar spine. Has no abnormal skin markings. When he ambulates he does have evidence of antalgia affecting left lower extremities. He demonstrates no gross motor deficits to detailed testing. He has no sensory deficits. Laboratory Results Last 24 Hours Test 06/13/17 16:53 06/13/17 20:32 06/14/17 08:05 06/14/17 09:39 Bedside Glucose 103 mg/dl 112 mg/dl 166 mg/dl White Blood Count 8.17 K/uL Red Blood Count 4.43 M/uL Hemoglobin 13.4 g/dL Hematocrit 39.1 % Mean Corpuscular Volume 88.3 fL Mean Corpuscular Hemoglobin 30.2 pg Mean Corpuscular Hemoglobin Concent 34.3 g/dl Platelet Count 238 K/uL Mean Platelet Volume 8.6 fL Neutrophils (%) (Auto) 74.7 % Lymphocytes (%) (Auto) 14.8 % Monocytes (%) (Auto) 6.6 % Eosinophils (%) (Auto) 1.8 % Basophils (%) (Auto) 1.1 % Neutrophils # (Auto) 6.10 K/uL Lymphocytes # (Auto) 1.21 K/uL Monocytes # (Auto) 0.54 K/uL Eosinophils # (Auto) 0.15 K/uL Basophils # (Auto) 0.09 K/uL RDW Standard Deviation 48.7 fL RDW Coefficient of Variation 15.0 % Immature Granulocyte % (Auto) 1.0 % Immature Granulocyte # (Auto) 0.08 K/uL Sodium Level 135 mmol/L Potassium Level 3.1 mmol/L Chloride Level 101 mmol/L Carbon Dioxide Level 24 mmol/L Anion Gap 10.0 mmol/L Blood Urea Nitrogen 10 mg/dl Creatinine 0.99 mg/dl Est Creatinine Clear Calc Drug Dose 72.7 ml/min Estimated GFR () 85.4 Estimated GFR (Non- 73.7 BUN/Creatinine Ratio 10.5 Random Glucose 207 mg/dl Calcium Level 9.2 mg/dl Magnesium Level 1.9 mg/dl Test 06/14/17 11:34 Bedside Glucose 149 mg/dl Assessment & Plan Assessment L5-S1 discitis. Plan at this time he would be ideally treated with IV antibiotics and avoid surgical intervention. However I am concerned that he has continued radiculopathy affecting the left lower extremity. I did obtain standing x-rays lumbar spine and did not appreciate any significant collapse of the L5-S1 disc when standing. We will continue to watch him throughout the weekend. If he continues to have significant radiculopathy we may need to consider decompression and fusion of the lumbar spine which would include removal of the disc and implantation of antibiotic beads.
[2017-06-14 15:40] VITALS: BP 112/72; PULSE 62; TEMP 36.7; O2SAT 96
[2017-06-14 16:00] VITALS: O2SAT 96
[2017-06-15 00:41] VITALS: BP 131/82; PULSE 58; TEMP 36.9; O2SAT 95
[2017-06-15] MEDS ORDERED: VANCOMYCIN TROUGH ONE (05:30)
[2017-06-15 06:55] LABS: CALCIUM 9.2 mg/dl (8.5-10.1); CREATININE 0.88 mg/dl (0.60-1.40); POTASSIUM 3.4 mmol/L (3.5-5.1)
[2017-06-15 07:31] VITALS: BP 134/78; PULSE 59; TEMP 36.7; O2SAT 96
[2017-06-15] MEDS: ASPIRIN 81 MG CHEW PO SCH (08:03)
[2017-06-15] MEDS: CHLORTHALIDONE 25 MG TAB PO SCH (08:04)
[2017-06-15] MEDS: TAMSULOSIN HCL 0.4 MG CAP PO SCH (08:04)
[2017-06-15] MEDS: LOSARTAN POTASSIUM 50 MG TAB PO SCH (08:04)
[2017-06-15] MEDS: FINASTERIDE 5 MG TAB PO SCH (08:05)
[2017-06-15] MEDS: POTASSIUM CHLORIDE 20 MEQ TABCR PO SCH ×2 (08:05→17:59)
[2017-06-15] MEDS: INSULIN ASPART 100 UNITS/ML 3 ML PEN SC SCH ×4 (08:53→21:09)
[2017-06-15] MEDS: CEFTRIAXONE SOD INJ 2,000 MG in DEXTROSE 5% 50ML 50 ML IV SCH (13:36)
[2017-06-15 15:26] VITALS: BP 99/64; PULSE 65; TEMP 36.6; O2SAT 94
--- NOTE | 2017-06-15 15:55 | Progress Note ---
Internal Med Progress Note Date of Service: Jun 15, 2017. Provider Documentation: SUBJECTIVE: Seen and examined at bedside Patient continues to have persistent back pain No new complaints Denies chest pain, SOB, dizziness, nausea, abd pain Family at bedside OBJECTIVE: Vital Signs-as noted below Physical Exam: General Appearance:Moderately built and nourished, no apparent distress Head: normocephalic, Atraumatic Eyes: normal inspection, EOMI, PERRL Neck: supple, Trachea midline Respiratory/Chest: Normal breath sounds, CTA Cardiovascular: S1, S2, No murmur Abdomen/GI:Soft, Non tender, Bowel sounds present Extremities/Musculoskelatal:normal inspection, no edema Neurologic/Psych:AAOX3, grossly no focal neurological deficits Skin: normal color, warm Lab data as noted below. ASSESSMENT & PLAN: L5-S1 Osteomyelitis/Discitis Patient presented on referral by Dr. Post after outpatient MRI showed L5-S1 osteomyelitis/discitis Reports increasing back pain for the past 5 weeks Also noted patient has been having recurrent urinary tract infections since April, this is likely the source of the seeding for the osteomyelitis/discitis Blood cultures: negative so far Urine culture: (+) E coli Appreciate Ortho Input Appreciate ID input DC IV Vanco Continue IV Ceftriaxone to complete 6 week course PICC line placed Lumbar X ray: Mild scoliosis. Mild degenerative disc change. No acute process. PT/OT Plan to watch over weekend and if patient continues to have significant radiculopathy, may need lumbar decompression and fusion eventually Recurrent UTIs: Has been on 3 courses of antibiotics since April Outpatient MR did show renal cysts Urine culture: E coli Appreciate Urology Input Has BPH on meds Bladder scan: normal- no urinary retention Renal USD: Stable bilateral renal cysts, No hydronephrosis, Trace perinephric fluid, unchanged, Prostatomegaly. Needs outpatient cysto, and possible selective sampling of kidneys in future if Cysto normal Needs follow up with Dr. Reid as outpatient Chronic Hypokalemia: In setting of Chlorthalidone use on potassium supplements 60mg daily at home Continue potassium supplements monitor HYPERTENSION Stable Continue atenolol, chlorthalidone, losartan DM II: Hgb A1c 5.06 April 2015 Hold oral agents and utilize SSI while hospitalized DVT Px: SCDs Disposition: To be determined PT/OT evaluation Vital Signs: Date Time Temp Pulse Resp B/P (MAP) Pulse Ox O2 Delivery O2 Flow Rate FiO2 3/17/18 15:26 36.6 65 20 99/64 (76) 94 06/15/17 08:00 Room Air 06/15/17 07:31 36.7 59 20 134/78 (96) 96 06/15/17 00:41 36.9 58 18 131/82 (98) 95 Room Air 06/15/17 00:00 Room Air Lab Results: Results Past 24 Hours Test 06/14/17 16:23 06/14/17 20:00 06/15/17 05:54 06/15/17 07:20 Range/Units Bedside Glucose 114 145 116 70-99 mg/dl Sodium Level 137 136-145 mmol/L Potassium Level 3.4 3.5-5.1 mmol/L Chloride Level 104 98-107 mmol/L Carbon Dioxide Level 23 21-32 mmol/L Anion Gap 10.0 3-11 mmol/L Blood Urea Nitrogen 16 7-18 mg/dl Creatinine 0.88 0.60-1.40 mg/dl Est Creatinine Clear Calc Drug Dose 81.8 ml/min Estimated GFR () 96.7 Estimated GFR (Non- 83.4 BUN/Creatinine Ratio 17.8 10-20 Random Glucose 115 70-99 mg/dl Calcium Level 9.2 8.5-10.1 mg/dl Magnesium Level 1.9 1.8-2.4 mg/dl Test 06/15/17 11:21 Range/Units Bedside Glucose 151 70-99 mg/dl
[2017-06-15] MEDS ORDERED: NURSING VERBAL MED ORDER ONE (19:15)
[2017-06-15 23:08] VITALS: BP 116/74; PULSE 61; TEMP 36.7; O2SAT 95
[2017-06-16 06:24] LABS: BASO ABS # 0.08 K/uL (0-0.2); EOS ABS # 0.24 K/uL (0-0.5); HEMATOCRIT 38.8 % (42-52); HEMOGLOBIN 13.1 g/dL (14.0-18.0); IG# 0.12 K/uL (0.00-0.02); LYMPH % 22.8 %; LYMPH ABS # 1.85 K/uL (1.2-3.4); MEAN CORPUSCULAR HGB CONC 33.8 g/dl (32-36); MEAN PLATELET VOLUME 8.6 fL (7.4-10.4); MONO % 9.5 %; MONO ABS # 0.77 K/uL (0.11-0.59); NEUT % 62.2 %; NEUT ABS # 5.07 K/uL (1.4-6.5); PLATELET COUNT 225 K/uL (130-400); RED CELL DISTRIBUTION WIDTH SD 48.4 fL (36.4-46.3); WHITE BLOOD COUNT 8.13 K/uL (4.8-10.8)
[2017-06-16 06:46] LABS: CALCIUM 9.2 mg/dl (8.5-10.1); CREATININE 0.88 mg/dl (0.60-1.40); POTASSIUM 3.6 mmol/L (3.5-5.1)
[2017-06-16 07:38] VITALS: BP 131/78; PULSE 56; TEMP 36.7; O2SAT 95
[2017-06-16 08:06] VITALS: PULSE 68
[2017-06-16] MEDS: LOSARTAN POTASSIUM 50 MG TAB PO SCH (08:07)
[2017-06-16] MEDS: ASPIRIN 81 MG CHEW PO SCH (08:07)
[2017-06-16] MEDS: TAMSULOSIN HCL 0.4 MG CAP PO SCH (08:09)
[2017-06-16] MEDS: CHLORTHALIDONE 25 MG TAB PO SCH (08:10)
[2017-06-16] MEDS: POTASSIUM CHLORIDE 20 MEQ TABCR PO SCH (08:10)
[2017-06-16] MEDS: FINASTERIDE 5 MG TAB PO SCH (08:11)
[2017-06-16] MEDS: INSULIN ASPART 100 UNITS/ML 3 ML PEN SC SCH ×4 (09:04→20:50)
[2017-06-16] MEDS: ACETAMINOPHEN 325 MG TAB PO PRN (10:06)
[2017-06-16] MEDS: OXYCODONE HCL IR 5 MG TAB (IMMEDIATE RELEASE) PO PRN (10:07)
--- NOTE | 2017-06-16 12:55 | Progress Note ---
Progress Note Date of Service Jun 16, 2017. Progress Note Met with patient today and his at the bedside. He continues to note significant left-sided S1 radiculopathy with sitting and ambulation. It has not improved over the past several days. I discussed with the patient that we may need to consider decompression and stabilization of lumbar spine if he fails to note improvement. He understands. He would like to continue with therapy and observation over the next several days. If he fails to improve he may consider surgical intervention or if there is a marked decline in status. I will obtain a CAT scan of lumbar spine for further detail of the bony anatomy and to assess for underlying instability. The patient understands and agrees.
--- NOTE | 2017-06-16 14:31 | DIAGNOSTIC IMAGING REPORT ---
LUMBAR SPINE WITHOUT HISTORY: 77 years-old Male back pain acute low back pain without reported trauma. COMPARISON: Lumbar spine radiographs 06/12/2017, lumbar spine CT 04/17/2017 TECHNIQUE: Multiple axial CT images of the lumbar spine were obtained without the use of IV contrast. A dose lowering technique was used consistent with the principals of YAZAN. FINDINGS: There has been interval development of endplate erosive changes at the L5-S1 level involving the inferior endplate L5 and superior endplate S1, nicely seen on image 29 of series 201. Ill-defined linear areas of decreased attenuation within the L5 vertebral body suggests associated erosive changes without evidence of anterior or posterior endplate collapse. Additionally, there is moderate inflammatory stranding with soft tissue prominence surrounding the L5-S1 disc space without drainable fluid collection identified. Erosive changes are also noted involving the right sacral ala as seen on image 30 of series 200. No large epidural abscess identified. Atherosclerosis of the aorta without aneurysm. No pathologic adenopathy identified. Mild nonspecific bilateral perinephric stranding. T12-L1: Mild facet arthrosis with posterior disc osteophyte complex formation. No significant central canal or foraminal narrowing. L1-L2: Mild facet arthrosis and small posterior disc bulge. No central canal or foraminal narrowing. L2-L3: Mild facet arthrosis with small posterior disc bulge. No central canal or foraminal narrowing. L3-L4: Mild facet arthrosis with ligamentum flavum thickening and small posterior disc bulge causing mild central canal, mild right and no significant left foraminal stenosis. L4-L5: Mild intervertebral disc space narrowing with posterior spondylitic spurring, moderate facet arthrosis and ligamentum flavum thickening with moderate sized posterior disc bulge. There is mild central canal, mild to moderate right and moderate left foraminal narrowing. L5-S1: Inflammatory changes at the disc space as above cause flattening of the ventral thecal sac. Moderate facet arthrosis with ligamentum flavum thickening. There is at least moderate bilateral foraminal narrowing. IMPRESSION: 1. Findings compatible with acute discitis osteomyelitis at the L5-S1 disc space with erosive changes involving the L5 and S1 vertebral bodies. Mild associated inflammatory stranding at the disc space without drainable abscess or large epidural fluid collection identified by noncontrast CT. Further evaluation with contrast-enhanced MRI recommended if clinically able. 2. Discogenic degenerative changes as above. The above report was generated using voice recognition software. It may contain grammatical, syntax or spelling errors. Electronically signed by: Pablo Rosales M.D. 06/16/2017 2:30 PM Dictated Date/Time: 06/16/2017 2:16 PM
[2017-06-16] MEDS: CEFTRIAXONE SOD INJ 2,000 MG in DEXTROSE 5% 50ML 50 ML IV SCH (14:46)
[2017-06-16 14:55] VITALS: BP 122/73; PULSE 65; TEMP 36.6; O2SAT 94
--- NOTE | 2017-06-16 15:10 | Progress Note ---
Internal Med Progress Note Date of Service: Jun 16, 2017. Provider Documentation: SUBJECTIVE: Seen and examined at bedside back pain is about the same as yesterday No new complaints Denies chest pain, SOB, dizziness, nausea, abd pain Family at bedside Got Lumbar CT today OBJECTIVE: Vital Signs-as noted below Physical Exam: General Appearance:Moderately built and nourished, no apparent distress Head: normocephalic, Atraumatic Eyes: normal inspection, EOMI, PERRL Neck: supple, Trachea midline Respiratory/Chest: Normal breath sounds, CTA Cardiovascular: S1, S2, No murmur Abdomen/GI:Soft, Non tender, Bowel sounds present Extremities/Musculoskelatal:normal inspection, no edema Neurologic/Psych:AAOX3, grossly no focal neurological deficits Skin: normal color, warm Lab data as noted below. ASSESSMENT & PLAN: L5-S1 Osteomyelitis/Discitis Patient presented on referral by Dr. Post after outpatient MRI showed L5-S1 osteomyelitis/discitis Reports increasing back pain for the past 5 weeks Also noted patient has been having recurrent urinary tract infections since April, this is likely the source of the seeding for the osteomyelitis/discitis Blood cultures: No growth Urine culture: (+) E coli Appreciate Ortho Input Appreciate ID input DC IV Vanco Continue IV Ceftriaxone to complete 6 week course PICC line placed Lumbar X ray: Mild scoliosis. Mild degenerative disc change. No acute process. Lumbar CT:suggestive of acute discitis osteomyelitis at the L5-S1 disc space with erosive changes involving the L5 and S1 vertebral bodies. May need lumbar decompression and fusion if continues to significant radiculopathy despite medical management Recurrent UTIs: Has been on 3 courses of antibiotics since April Outpatient MR did show renal cysts Urine culture: E coli Appreciate Urology Input Has BPH on meds Bladder scan: normal- no urinary retention Renal USD: Stable bilateral renal cysts, No hydronephrosis, Trace perinephric fluid, unchanged, Prostatomegaly. Needs outpatient cysto, and possible selective sampling of kidneys in future if Cysto normal Needs follow up with Dr. Reid as outpatient Chronic Hypokalemia: In setting of Chlorthalidone use on potassium supplements 60mg daily at home Continue potassium supplements monitor Potassium:3.6 today HYPERTENSION Stable Continue atenolol, chlorthalidone, losartan DM II: Hgb A1c 5.06 April 2015 Hold oral agents and utilize SSI while hospitalized DVT Px: SCDs Disposition: To be determined PT/OT evaluation Vital Signs: Date Time Temp Pulse Resp B/P (MAP) Pulse Ox O2 Delivery O2 Flow Rate FiO2 06/16/17 14:55 36.6 65 20 122/73 (89) 94 06/16/17 08:06 68 06/16/17 08:00 Room Air 06/16/17 07:38 36.7 56 20 131/78 (95) 95 06/16/17 00:00 Room Air 06/15/17 23:08 36.7 61 20 116/74 (88) 95 Room Air 06/15/17 20:00 Room Air 06/15/17 16:00 Room Air 06/15/17 15:26 36.6 65 20 99/64 (76) 94 Lab Results: Results Past 24 Hours Test 06/15/17 16:20 06/15/17 20:07 06/16/17 06:09 06/16/17 07:30 Range/Units Bedside Glucose 143 114 128 70-99 mg/dl White Blood Count 8.13 4.8-10.8 K/uL Red Blood Count 4.36 4.7-6.1 M/uL Hemoglobin 13.1 14.0-18.0 g/dL Hematocrit 38.8 42-52 % Mean Corpuscular Volume 89.0 80-100 fL Mean Corpuscular Hemoglobin 30.0 25-34 pg Mean Corpuscular Hemoglobin Concent 33.8 32-36 g/dl Platelet Count 225 130-400 K/uL Mean Platelet Volume 8.6 7.4-10.4 fL Neutrophils (%) (Auto) 62.2 % Lymphocytes (%) (Auto) 22.8 % Monocytes (%) (Auto) 9.5 % Eosinophils (%) (Auto) 3.0 % Basophils (%) (Auto) 1.0 % Neutrophils # (Auto) 5.07 1.4-6.5 K/uL Lymphocytes # (Auto) 1.85 1.2-3.4 K/uL Monocytes # (Auto) 0.77 0.11-0.59 K/uL Eosinophils # (Auto) 0.24 0-0.5 K/uL Basophils # (Auto) 0.08 0-0.2 K/uL RDW Standard Deviation 48.4 36.4-46.3 fL RDW Coefficient of Variation 15.0 11.5-14.5 % Immature Granulocyte % (Auto) 1.5 % Immature Granulocyte # (Auto) 0.12 0.00-0.02 K/uL Sodium Level 136 136-145 mmol/L Potassium Level 3.6 3.5-5.1 mmol/L Chloride Level 102 98-107 mmol/L Carbon Dioxide Level 25 21-32 mmol/L Anion Gap 9.0 3-11 mmol/L Blood Urea Nitrogen 16 7-18 mg/dl Creatinine 0.88 0.60-1.40 mg/dl Est Creatinine Clear Calc Drug Dose 81.8 ml/min Estimated GFR () 96.7 Estimated GFR (Non- 83.4 BUN/Creatinine Ratio 18.2 10-20 Random Glucose 117 70-99 mg/dl Calcium Level 9.2 8.5-10.1 mg/dl Test 06/16/17 11:27 Range/Units Bedside Glucose 129 70-99 mg/dl
[2017-06-17 00:14] VITALS: BP 110/70; PULSE 59; TEMP 36.5; O2SAT 97
[2017-06-17 06:01] LABS: CALCIUM 9.3 mg/dl (8.5-10.1); CREATININE 0.91 mg/dl (0.60-1.40); POTASSIUM 3.2 mmol/L (3.5-5.1)
[2017-06-17 07:34] VITALS: BP 149/78; PULSE 68; TEMP 36.4; O2SAT 95
[2017-06-17] MEDS: CHLORTHALIDONE 25 MG TAB PO SCH (08:50)
[2017-06-17] MEDS: FINASTERIDE 5 MG TAB PO SCH (08:50)
[2017-06-17] MEDS: ASPIRIN 81 MG CHEW PO SCH (08:50)
[2017-06-17] MEDS: POTASSIUM CHLORIDE 20 MEQ TABCR PO SCH (08:50)
[2017-06-17] MEDS: TAMSULOSIN HCL 0.4 MG CAP PO SCH (08:50)
[2017-06-17] MEDS: LOSARTAN POTASSIUM 50 MG TAB PO SCH (08:50)
[2017-06-17] MEDS: OXYCODONE HCL IR 5 MG TAB (IMMEDIATE RELEASE) PO PRN ×2 (08:51→18:14)
[2017-06-17] MEDS: INSULIN ASPART 100 UNITS/ML 3 ML PEN SC SCH ×4 (08:55→20:53)
[2017-06-17] MEDS: CEFTRIAXONE SOD INJ 2,000 MG in DEXTROSE 5% 50ML 50 ML IV SCH (13:21)
--- NOTE | 2017-06-17 15:19 | Progress Note ---
Progress Note Date of Service Jun 17, 2017. Progress Note I met with patient and his and family today. We had a lengthy discussion regarding his progress and most recent CAT scan findings. I have expressed my concern regarding the significant erosive changes noted at the L5 and S1 levels adjacent to the discitis at L5-S1. My concern is that if he were to require surgical intervention would require an anterior approach for adequate debridement and stabilization. This is not a procedure we are prepared to perform it [facility]. This time he is not demonstrating signs of sepsis he still has a significant radiculopathy involving left lower extremity. We have discussed consultation with tertiary care. The patient and her family are comfortable with this option.
[2017-06-17 16:05] VITALS: BP 115/73; PULSE 62; TEMP 36.4; O2SAT 93
--- NOTE | 2017-06-17 16:08 | Progress Note ---
Internal Med Progress Note Date of Service: Jun 17, 2017. Provider Documentation: SUBJECTIVE: Seen and examined at bedside Reports having continued back pain/radiculopathy No other complaints Denies chest pain, SOB, dizziness, nausea, abd pain Family at bedside Discussed with in detail. Patient would require back surgery planning to discuss with Orthopedics in [facility] [place] OBJECTIVE: Vital Signs-as noted below Physical Exam: General Appearance:Moderately built and nourished, no apparent distress Head: normocephalic, Atraumatic Eyes: normal inspection, EOMI, PERRL Neck: supple, Trachea midline Respiratory/Chest: Normal breath sounds, CTA Cardiovascular: S1, S2, No murmur Abdomen/GI:Soft, Non tender, Bowel sounds present Extremities/Musculoskelatal:normal inspection, no edema Neurologic/Psych:AAOX3, grossly no focal neurological deficits Skin: normal color, warm Lab data as noted below. ASSESSMENT & PLAN: L5-S1 Osteomyelitis/Discitis Patient presented on referral by Dr. Post after outpatient MRI showed L5-S1 osteomyelitis/discitis Reports increasing back pain for the past 5 weeks Also noted patient has been having recurrent urinary tract infections since April, this is likely the source of the seeding for the osteomyelitis/discitis Blood cultures: No growth Urine culture: (+) E coli Appreciate Ortho Input Appreciate ID input DC IV Vanco Continue IV Ceftriaxone to complete 6 week course PICC line placed Lumbar X ray: Mild scoliosis. Mild degenerative disc change. No acute process. Lumbar CT:suggestive of acute discitis osteomyelitis at the L5-S1 disc space with erosive changes involving the L5 and S1 vertebral bodies. Discussed with in detail. Patient would require back surgery planning to discuss with Orthopedics in [facility] [place] Recurrent UTIs: Has been on 3 courses of antibiotics since April Outpatient MR did show renal cysts Urine culture: E coli Appreciate Urology Input Has BPH on meds Bladder scan: normal- no urinary retention Renal USD: Stable bilateral renal cysts, No hydronephrosis, Trace perinephric fluid, unchanged, Prostatomegaly. Needs outpatient cysto, and possible selective sampling of kidneys in future if Cysto normal Needs follow up with Dr. Reid as outpatient Chronic Hypokalemia: In setting of Chlorthalidone use on potassium supplements 60mg daily at home Continue potassium supplements monitor Potassium:3.2 today HYPERTENSION Stable Continue atenolol, chlorthalidone, losartan DM II: Hgb A1c 5.06 April 2015 Hold oral agents and utilize SSI while hospitalized DVT Px: SCDs Disposition: To be determined: May need to be transferred to [facility] if accepted PT/OT evaluation Vital Signs: Date Time Temp Pulse Resp B/P (MAP) Pulse Ox O2 Delivery O2 Flow Rate FiO2 06/17/17 08:00 Room Air 06/17/17 07:34 36.4 68 16 149/78 (101) 95 Room Air 06/17/17 00:14 36.5 59 18 110/70 (83) 97 Room Air 06/17/17 00:00 Room Air 06/16/17 20:00 Room Air Lab Results: Results Past 24 Hours Test 06/16/17 16:27 06/16/17 20:14 06/17/17 05:10 06/17/17 07:56 Range/Units Bedside Glucose 112 125 131 70-99 mg/dl Sodium Level 136 136-145 mmol/L Potassium Level 3.2 3.5-5.1 mmol/L Chloride Level 101 98-107 mmol/L Carbon Dioxide Level 26 21-32 mmol/L Anion Gap 9.0 3-11 mmol/L Blood Urea Nitrogen 17 7-18 mg/dl Creatinine 0.91 0.60-1.40 mg/dl Est Creatinine Clear Calc Drug Dose 79.1 ml/min Estimated GFR () 94.5 Estimated GFR (Non- 81.6 BUN/Creatinine Ratio 18.3 10-20 Random Glucose 114 70-99 mg/dl Calcium Level 9.3 8.5-10.1 mg/dl Test 06/17/17 11:49 Range/Units Bedside Glucose 134 70-99 mg/dl
[2017-06-17] MEDS ORDERED: POTASSIUM CHLORIDE 10 MEQ TABCR PO ONE (16:15)
[2017-06-18 00:50] VITALS: BP 129/77; PULSE 55; TEMP 36.6; O2SAT 95
[2017-06-18 06:23] LABS: CALCIUM 8.9 mg/dl (8.5-10.1); CREATININE 0.9 mg/dl (0.60-1.40); POTASSIUM 3.3 mmol/L (3.5-5.1)
[2017-06-18] MEDS: OXYCODONE HCL IR 5 MG TAB (IMMEDIATE RELEASE) PO PRN ×3 (06:49→20:38)
[2017-06-18 07:41] VITALS: BP 149/84; PULSE 62; TEMP 36.4; O2SAT 95
[2017-06-18] MEDS: TAMSULOSIN HCL 0.4 MG CAP PO SCH (08:43)
[2017-06-18] MEDS: LOSARTAN POTASSIUM 50 MG TAB PO SCH (08:43)
[2017-06-18] MEDS: CHLORTHALIDONE 25 MG TAB PO SCH (08:43)
[2017-06-18] MEDS: POTASSIUM CHLORIDE 20 MEQ TABCR PO SCH (08:43)
[2017-06-18] MEDS: ASPIRIN 81 MG CHEW PO SCH (08:43)
[2017-06-18] MEDS: FINASTERIDE 5 MG TAB PO SCH (08:43)
[2017-06-18] MEDS: INSULIN ASPART 100 UNITS/ML 3 ML PEN SC SCH ×4 (08:52→20:38)
[2017-06-18] MEDS ORDERED: POTASSIUM CHLORIDE 10 MEQ TABCR PO ONE (13:00)
[2017-06-18] MEDS: CEFTRIAXONE SOD INJ 2,000 MG in DEXTROSE 5% 50ML 50 ML IV SCH (14:35)
[2017-06-18 15:06] VITALS: BP 118/75; PULSE 61; TEMP 36.6; O2SAT 94
[2017-06-18] MEDS: ACETAMINOPHEN 325 MG TAB PO PRN (16:57)
--- NOTE | 2017-06-18 19:07 | Progress Note ---
Medicine Progress Note Date & Time of Visit: Jun 18, 2017 at 19:00. Subjective seen resting in bed, having lunch back pain well controlled also has left sided sciatica but no weakness/numbness/paresthesias/incontinence no other symptoms Objective Last 8 Hrs Date Time Temp Pulse Resp B/P (MAP) Pulse Ox O2 Delivery O2 Flow Rate FiO2 06/18/17 16:30 Room Air 06/18/17 15:06 36.6 61 20 118/75 (89) 94 Room Air Physical Exam: General- oriented x 3, not in distress, speaks in sentences with no effort Eyes- anicteric Neck- no JVD Lungs- clear breath sounds bilaterally, no rales, no wheezes Heart- regular rhythm; no murmur, normal rate Abdomen- normal bowel sounds, soft, nontender Extremities- no pretibial edema Neuro- alert, oriented x 3; no gross focal deficits Skin- warm & dry Laboratory Results: Last 24 Hours Test 06/17/17 19:37 06/18/17 05:20 06/18/17 07:45 06/18/17 10:07 Bedside Glucose 134 mg/dl 135 mg/dl Sodium Level 134 mmol/L Potassium Level 3.3 mmol/L Chloride Level 100 mmol/L Carbon Dioxide Level 28 mmol/L Anion Gap 6.0 mmol/L Blood Urea Nitrogen 19 mg/dl Creatinine 0.90 mg/dl Est Creatinine Clear Calc Drug Dose 80.0 ml/min Estimated GFR () 95.8 Estimated GFR (Non- 82.7 BUN/Creatinine Ratio 20.6 Random Glucose 121 mg/dl Calcium Level 8.9 mg/dl Erythrocyte Sedimentation Rate 40 mm/hr C-Reactive Protein 0.94 mg/dl Test 06/18/17 11:42 Bedside Glucose 141 mg/dl Assessment & Plan L5-S1 Osteomyelitis/Discitis - on Ceftri IV pain well controlled - able to reach Dr. Cason at around 530pm discussed with Dr. Cason, recommend transfer to [facility] for tertiary level care discussed with patient, prefers to arrange transfer to tomorrow Recurrent UTIs: Has been on 3 courses of antibiotics since April Outpatient MR did show renal cysts Urine culture: E coli -- on Ceftri IV Chronic Hypokalemia: In setting of Chlorthalidone use on potassium supplements 60mg daily at home -- monitor and replace HYPERTENSION Stable Continue atenolol, chlorthalidone, losartan DM II: Hgb A1c 5.06 April 2015 Hold oral agents and utilize SSI while hospitalized DVT Px: SCDs Disposition: transfer to [facility] in AM Current Inpatient Medications: Current Inpatient Medications Medications (Trade) Dose Ordered Sig/Faith Route Start Time Stop Time Status Last Admin Dose Admin Acetaminophen (Tylenol Tab) 650 mg Q4H PRN PO 06/10/17 15:00 07/10/17 14:59 06/18/17 16:57 650 MG Ondansetron HCl (Zofran Inj) 4 mg Q6H PRN IV 06/10/17 15:00 07/10/17 14:59 Ceftriaxone Sodium 2000 mg/ Dextrose 70 ml @ 100 mls/hr Q24H IV 06/11/17 14:00 06/20/17 13:59 06/18/17 14:35 100 MLS/HR Glucose (Glucose 40% Gel) 15-30 GRAMS 15 GRAMS... UD PRN PO 06/10/17 15:00 07/10/17 14:59 Glucose (Glucose Chew Tab) 4-8 Tablets 4 Tabl... UD PRN PO 06/10/17 15:00 07/10/17 14:59 Dextrose (Dextrose 50% 50ML Syringe) 25-50ML OF 50% DW IV FOR... UD PRN IV 06/10/17 15:00 07/10/17 14:59 Glucagon (Glucagon Inj) 1 mg UD PRN SQ 06/10/17 15:00 07/10/17 14:59 Aspirin (Aspirin Chew) 81 mg DAILY PO 06/11/17 08:00 07/11/17 08:59 06/18/17 08:43 81 MG Atenolol (Tenormin Tab) 75 mg DAILY PO 06/11/17 08:00 07/11/17 08:59 06/18/17 08:44 75 MG Chlorthalidone (Hygroton Tab) 25 mg DAILY PO 06/11/17 08:00 07/11/17 08:59 06/18/17 08:43 25 MG Docusate Sodium (coLACE CAP) 100 mg BID PRN PO 06/10/17 15:15 07/10/17 15:14 Finasteride (Proscar Tab) 5 mg DAILY PO 06/11/17 08:00 07/11/17 08:59 06/18/17 08:43 5 MG Losartan Potassium (coZAAR TAB) 100 mg DAILY PO 06/11/17 08:00 07/11/17 08:59 06/18/17 08:43 100 MG Potassium Chloride (Klor-Con Tab) 60 meq DAILY PO 06/11/17 08:00 07/11/17 08:59 06/18/17 08:43 60 MEQ Tamsulosin HCl (Flomax Cap) 0.4 mg DAILY PO 06/11/17 08:00 07/11/17 08:59 06/18/17 08:43 0.4 MG Oxycodone HCl (Roxicodone Immediate Rel Tab) 5 mg Q6H PRN PO 06/10/17 17:30 06/24/17 17:29 06/18/17 13:15 5 MG Insulin Aspart (novoLOG ASPART) SLIDING SCALE If C... ACHS SC 06/11/17 17:30 07/11/17 17:29 06/18/17 17:48 8 UNITS Heparin Sodium (Porcine) (Heparin 10 Unit/ ml 5 ml Flush) 5 ml PRN PRN FLUSH 06/15/17 19:15 07/15/17 19:14 06/18/17 05:17 5 ML
--- NOTE | 2017-06-18 21:41 | Infectious Disease Progress Nt ---
Progress Note Date of Service Jun 18, 2017. Subjective Pt evaluation today including: conversation w/ patient, physical exam, chart review, lab review, review of studies, conversation w/ service delivery management consultant, review of inpatient medication list Left-sided sciatic pain slightly better. Remains afebrile. Tolerating ceftriaxone without apparent difficulty. Awaiting decision regarding transfer to [facility]. All Other Systems: Reviewed and Negative Medications Current Inpatient Medications Medications (Trade) Dose Ordered Sig/Faith Route Start Time Stop Time Status Last Admin Dose Admin Acetaminophen (Tylenol Tab) 650 mg Q4H PRN PO 06/10/17 15:00 07/10/17 14:59 06/18/17 16:57 650 MG Ondansetron HCl (Zofran Inj) 4 mg Q6H PRN IV 06/10/17 15:00 07/10/17 14:59 Ceftriaxone Sodium 2000 mg/ Dextrose 70 ml @ 100 mls/hr Q24H IV 06/11/17 14:00 06/20/17 13:59 06/18/17 14:35 100 MLS/HR Glucose (Glucose 40% Gel) 15-30 GRAMS 15 GRAMS... UD PRN PO 06/10/17 15:00 07/10/17 14:59 Glucose (Glucose Chew Tab) 4-8 Tablets 4 Tabl... UD PRN PO 06/10/17 15:00 07/10/17 14:59 Dextrose (Dextrose 50% 50ML Syringe) 25-50ML OF 50% DW IV FOR... UD PRN IV 06/10/17 15:00 07/10/17 14:59 Glucagon (Glucagon Inj) 1 mg UD PRN SQ 06/10/17 15:00 07/10/17 14:59 Aspirin (Aspirin Chew) 81 mg DAILY PO 06/11/17 08:00 07/11/17 08:59 06/18/17 08:43 81 MG Atenolol (Tenormin Tab) 75 mg DAILY PO 06/11/17 08:00 07/11/17 08:59 06/18/17 08:44 75 MG Chlorthalidone (Hygroton Tab) 25 mg DAILY PO 06/11/17 08:00 07/11/17 08:59 06/18/17 08:43 25 MG Docusate Sodium (coLACE CAP) 100 mg BID PRN PO 06/10/17 15:15 07/10/17 15:14 Finasteride (Proscar Tab) 5 mg DAILY PO 06/11/17 08:00 07/11/17 08:59 06/18/17 08:43 5 MG Losartan Potassium (coZAAR TAB) 100 mg DAILY PO 06/11/17 08:00 07/11/17 08:59 06/18/17 08:43 100 MG Potassium Chloride (Klor-Con Tab) 60 meq DAILY PO 06/11/17 08:00 07/11/17 08:59 06/18/17 08:43 60 MEQ Tamsulosin HCl (Flomax Cap) 0.4 mg DAILY PO 06/11/17 08:00 07/11/17 08:59 06/18/17 08:43 0.4 MG Oxycodone HCl (Roxicodone Immediate Rel Tab) 5 mg Q6H PRN PO 06/10/17 17:30 06/24/17 17:29 06/18/17 20:38 5 MG Insulin Aspart (novoLOG ASPART) SLIDING SCALE If C... ACHS SC 06/11/17 17:30 07/11/17 17:29 06/18/17 17:48 8 UNITS Heparin Sodium (Porcine) (Heparin 10 Unit/ ml 5 ml Flush) 5 ml PRN PRN FLUSH 06/15/17 19:15 07/15/17 19:14 06/18/17 05:17 5 ML Objective Vital Signs Date Time Temp Pulse Resp B/P (MAP) Pulse Ox O2 Delivery O2 Flow Rate FiO2 06/18/17 16:30 Room Air 06/18/17 15:06 36.6 61 20 118/75 (89) 94 Room Air 06/18/17 08:00 Room Air 06/18/17 07:41 36.4 62 20 149/84 (105) 95 Room Air 06/18/17 00:50 36.6 55 20 129/77 (94) 95 Room Air 06/18/17 00:15 Room Air Physical Exam General Appearance: WD/WN, no apparent distress Eyes: normal inspection, EOMI, sclerae normal ENT: normal ENT inspection, pharynx normal Neck: supple, no adenopathy, thyroid normal, trachea midline Respiratory/Chest: chest non-tender, lungs clear, normal breath sounds, no respiratory distress Cardiovascular: regular rate, rhythm, no gallop, no murmur Abdomen: normal bowel sounds, non tender, soft, no organomegaly Extremities: non-tender, no calf tenderness Neurologic/Psychiatric: alert, oriented x 3 Skin: normal color, warm/dry, no rash Lymphatic: no adenopathy Laboratory Results Last 24 Hours Test 06/18/17 05:20 06/18/17 07:45 06/18/17 10:07 06/18/17 11:42 Sodium Level 134 mmol/L Potassium Level 3.3 mmol/L Chloride Level 100 mmol/L Carbon Dioxide Level 28 mmol/L Anion Gap 6.0 mmol/L Blood Urea Nitrogen 19 mg/dl Creatinine 0.90 mg/dl Est Creatinine Clear Calc Drug Dose 80.0 ml/min Estimated GFR () 95.8 Estimated GFR (Non- 82.7 BUN/Creatinine Ratio 20.6 Random Glucose 121 mg/dl Calcium Level 8.9 mg/dl Bedside Glucose 135 mg/dl 141 mg/dl Erythrocyte Sedimentation Rate 40 mm/hr C-Reactive Protein 0.94 mg/dl Test 06/18/17 17:07 06/18/17 20:06 Bedside Glucose 118 mg/dl 146 mg/dl Assessment and Plan 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 Likely source of this infection would be persistent urinary tract infection. Isolate is sensitive to ceftriaxone, so this would provide adequate coverage. Will likely need 6-8 weeks of IV antibiotics. Await decision about tertiary care transfer. Will follow.
[2017-06-18 23:20] VITALS: BP 129/77; PULSE 60; TEMP 36.4; O2SAT 96
[2017-06-19] MEDS: OXYCODONE HCL IR 5 MG TAB (IMMEDIATE RELEASE) PO PRN ×3 (05:51→20:05)
[2017-06-19 07:02] LABS: CALCIUM 9.3 mg/dl (8.5-10.1); CREATININE 0.85 mg/dl (0.60-1.40); POTASSIUM 3.4 mmol/L (3.5-5.1)
[2017-06-19 07:49] VITALS: BP 148/81; PULSE 73; TEMP 36.6; O2SAT 94
[2017-06-19] MEDS: LOSARTAN POTASSIUM 50 MG TAB PO SCH (08:54)
[2017-06-19] MEDS: TAMSULOSIN HCL 0.4 MG CAP PO SCH (08:54)
[2017-06-19] MEDS: CHLORTHALIDONE 25 MG TAB PO SCH (08:54)
[2017-06-19] MEDS: ASPIRIN 81 MG CHEW PO SCH (08:54)
[2017-06-19] MEDS: FINASTERIDE 5 MG TAB PO SCH (08:55)
[2017-06-19] MEDS: POTASSIUM CHLORIDE 20 MEQ TABCR PO SCH (08:55)
[2017-06-19] MEDS: INSULIN ASPART 100 UNITS/ML 3 ML PEN SC SCH ×3 (08:56→18:00)
--- NOTE | 2017-06-19 10:15 | Progress Note ---
Medicine Progress Note Date & Time of Visit: Jun 19, 2017 at 10:04. Subjective patient seen resting in bed, comfortable back pain well controlled less left sided sciatica pain no incontinence/paresthesias/weakness/ Objective Last 8 Hrs Date Time Temp Pulse Resp B/P (MAP) Pulse Ox O2 Delivery O2 Flow Rate FiO2 06/19/17 08:00 Room Air 06/19/17 07:49 36.6 73 20 148/81 (103) 94 Room Air Physical Exam: General- oriented x 3, not in distress, speaks in sentences with no effort Eyes- anicteric Neck- no JVD Lungs- clear breath sounds bilaterally, no rales, no wheezes Heart- regular rhythm; no murmur, normal rate Abdomen- normal bowel sounds, soft, nontender Extremities- no pretibial edema Neuro- alert, oriented x 3; no gross focal deficits Skin- warm & dry Laboratory Results: Last 24 Hours Test 06/18/17 10:07 06/18/17 11:42 06/18/17 17:07 06/18/17 20:06 Erythrocyte Sedimentation Rate 40 mm/hr C-Reactive Protein 0.94 mg/dl Bedside Glucose 141 mg/dl 118 mg/dl 146 mg/dl Test 06/19/17 05:59 06/19/17 08:04 Sodium Level 135 mmol/L Potassium Level 3.4 mmol/L Chloride Level 101 mmol/L Carbon Dioxide Level 25 mmol/L Anion Gap 9.0 mmol/L Blood Urea Nitrogen 16 mg/dl Creatinine 0.85 mg/dl Est Creatinine Clear Calc Drug Dose 84.7 ml/min Estimated GFR () 98.1 Estimated GFR (Non- 84.6 BUN/Creatinine Ratio 18.3 Random Glucose 125 mg/dl Calcium Level 9.3 mg/dl Bedside Glucose 181 mg/dl Assessment & Plan L5-S1 Osteomyelitis/Discitis Patient presented on referral by Dr. Post after outpatient MRI showed L5-S1 osteomyelitis/discitis Reports increasing back pain for the past 5 weeks prior to admission Also noted patient has been having recurrent urinary tract infections since April, this is likely the source of the seeding for the osteomyelitis/discitis Blood cultures: No growth Urine culture: (+) E coli resistant to ampicillin Orthopedic spine Dr. Cason consulted ID Dr. Fuentes consulted placed on Ceftriaxone IV x 9 days so far PICC line placed 06/16/17: Lumbar CT:suggestive of acute discitis osteomyelitis at the L5-S1 disc space with erosive changes involving the L5 and S1 vertebral bodies. Dr. Cason from Ortho spine re-evaluated the patient and he recommends transfer to [facility] for possible surgical intervention Dr. Cason spoke with Dr. Jorge Morse and he will follow the patient from Ortho [facility] called [facility], signed out case with hospitalist Dr. Verma who kindly accepted the patient Recurrent UTIs: Has been on 3 courses of antibiotics since April Outpatient MR did show renal cysts Urine culture: E coli Urology consulted Bladder scan: normal- no urinary retention Renal USD: Stable bilateral renal cysts, No hydronephrosis, Trace perinephric fluid, unchanged, Prostatomegaly. Needs outpatient cysto, and possible selective sampling of kidneys in future if Cysto normal Needs follow up with Urologist Dr. Reid as outpatient Chronic Hypokalemia In setting of Chlorthalidone use on potassium supplements 60mg daily at home K 3.4 added potassium 40meqs at HS monitor closely HYPERTENSION Stable Continue atenolol, chlorthalidone, losartan DM II: Hgb A1c 5.06 April 2015 Hold oral agents and utilize SSI while hospitalized Colon CA s/p Colostomy no issues monitor DVT Px: SCDs Disposition: transfer to [facility] Current Inpatient Medications: Current Inpatient Medications Medications (Trade) Dose Ordered Sig/Faith Route Start Time Stop Time Status Last Admin Dose Admin Acetaminophen (Tylenol Tab) 650 mg Q4H PRN PO 06/10/17 15:00 07/10/17 14:59 06/18/17 16:57 650 MG Ondansetron HCl (Zofran Inj) 4 mg Q6H PRN IV 06/10/17 15:00 07/10/17 14:59 Ceftriaxone Sodium 2000 mg/ Dextrose 70 ml @ 100 mls/hr Q24H IV 06/11/17 14:00 06/20/17 13:59 06/18/17 14:35 100 MLS/HR Glucose (Glucose 40% Gel) 15-30 GRAMS 15 GRAMS... UD PRN PO 06/10/17 15:00 07/10/17 14:59 Glucose (Glucose Chew Tab) 4-8 Tablets 4 Tabl... UD PRN PO 06/10/17 15:00 07/10/17 14:59 Dextrose (Dextrose 50% 50ML Syringe) 25-50ML OF 50% DW IV FOR... UD PRN IV 06/10/17 15:00 07/10/17 14:59 Glucagon (Glucagon Inj) 1 mg UD PRN SQ 06/10/17 15:00 07/10/17 14:59 Aspirin (Aspirin Chew) 81 mg DAILY PO 06/11/17 08:00 07/11/17 08:59 06/19/17 08:54 81 MG Atenolol (Tenormin Tab) 75 mg DAILY PO 06/11/17 08:00 07/11/17 08:59 06/19/17 08:54 75 MG Chlorthalidone (Hygroton Tab) 25 mg DAILY PO 06/11/17 08:00 07/11/17 08:59 06/19/17 08:54 25 MG Docusate Sodium (coLACE CAP) 100 mg BID PRN PO 06/10/17 15:15 07/10/17 15:14 Finasteride (Proscar Tab) 5 mg DAILY PO 06/11/17 08:00 07/11/17 08:59 06/19/17 08:55 5 MG Losartan Potassium (coZAAR TAB) 100 mg DAILY PO 06/11/17 08:00 07/11/17 08:59 06/19/17 08:54 100 MG Potassium Chloride (Klor-Con Tab) 60 meq DAILY PO 06/11/17 08:00 07/11/17 08:59 06/19/17 08:55 60 MEQ Tamsulosin HCl (Flomax Cap) 0.4 mg DAILY PO 06/11/17 08:00 07/11/17 08:59 06/19/17 08:54 0.4 MG Oxycodone HCl (Roxicodone Immediate Rel Tab) 5 mg Q6H PRN PO 06/10/17 17:30 06/24/17 17:29 06/19/17 05:51 5 MG Insulin Aspart (novoLOG ASPART) SLIDING SCALE If C... ACHS SC 06/11/17 17:30 07/11/17 17:29 06/19/17 08:56 10 UNITS Heparin Sodium (Porcine) (Heparin 10 Unit/ ml 5 ml Flush) 5 ml PRN PRN FLUSH 06/15/17 19:15 07/15/17 19:14 06/19/17 06:00 5 ML Potassium Chloride (Klor-Con M10) 40 meq HS PO 06/19/17 22:00 07/19/17 21:59
[2017-06-19] MEDS ORDERED: NVLGIPEN SC (10:16)
[2017-06-19] MEDS ORDERED: POTA10CA28 PO (10:16)
--- NOTE | 2017-06-19 10:22 | Discharge Summary ---
Discharge Summary Date of Service Jun 19, 2017. Discharge Summary Admission Date: Jun 10, 2017 at 14:50 Discharge Date: Jun 19, 2017 Discharge Disposition: Acute care facility Principal Diagnosis: L5-S1 Osteomyelitis/Discitis Secondary Diagnoses/Problems: PLEASE REFER TO HOSPITAL COURSE BELOW. Procedures: LUMBAR SPINE WITHOUT HISTORY: 77 years-old Male back pain acute low back pain without reported trauma. COMPARISON: Lumbar spine radiographs 06/12/2017, lumbar spine CT 04/17/2017 TECHNIQUE: Multiple axial CT images of the lumbar spine were obtained without the use of IV contrast. A dose lowering technique was used consistent with the principals of YAZAN. FINDINGS: There has been interval development of endplate erosive changes at the L5-S1 level involving the inferior endplate L5 and superior endplate S1, nicely seen on image 29 of series 201. Ill-defined linear areas of decreased attenuation within the L5 vertebral body suggests associated erosive changes without evidence of anterior or posterior endplate collapse. Additionally, there is moderate inflammatory stranding with soft tissue prominence surrounding the L5-S1 disc space without drainable fluid collection identified. Erosive changes are also noted involving the right sacral ala as seen on image 30 of series 200. No large epidural abscess identified. Atherosclerosis of the aorta without aneurysm. No pathologic adenopathy identified. Mild nonspecific bilateral perinephric stranding. T12-L1: Mild facet arthrosis with posterior disc osteophyte complex formation. No significant central canal or foraminal narrowing. L1-L2: Mild facet arthrosis and small posterior disc bulge. No central canal or foraminal narrowing. L2-L3: Mild facet arthrosis with small posterior disc bulge. No central canal or foraminal narrowing. L3-L4: Mild facet arthrosis with ligamentum flavum thickening and small posterior disc bulge causing mild central canal, mild right and no significant left foraminal stenosis. L4-L5: Mild intervertebral disc space narrowing with posterior spondylitic spurring, moderate facet arthrosis and ligamentum flavum thickening with moderate sized posterior disc bulge. There is mild central canal, mild to moderate right and moderate left foraminal narrowing. L5-S1: Inflammatory changes at the disc space as above cause flattening of the ventral thecal sac. Moderate facet arthrosis with ligamentum flavum thickening. There is at least moderate bilateral foraminal narrowing. IMPRESSION: 1. Findings compatible with acute discitis osteomyelitis at the L5-S1 disc space with erosive changes involving the L5 and S1 vertebral bodies. Mild associated inflammatory stranding at the disc space without drainable abscess or large epidural fluid collection identified by noncontrast CT. Further evaluation with contrast-enhanced MRI recommended if clinically able. 2. Discogenic degenerative changes as above. The above report was generated using voice recognition software. It may contain grammatical, syntax or spelling errors. Electronically signed by: Pablo Rosales M.D. 06/16/2017 2:30 PM Dictated Date/Time: 06/16/2017 2:16 PM [~ rep ct add3]] LEFT LOWER EXTREMITY VENOUS DOPPLER HISTORY: left calf pain COMPARISON STUDY: None. FINDINGS: There is normal compressibility, flow, and augmentation within the left lower extremity deep venous system. IMPRESSION: No DVT within the left lower extremity. Electronically signed by: Adonay Anderson M.D. 06/10/2017 8:51 PM Dictated Date/Time: 06/10/2017 8:50 PM RENAL ULTRASOUND HISTORY: recurrent UTI, f/u renal cysts COMPARISON: Abdomen and pelvis CT 04/14/2017. FINDINGS: Right kidney: 11.6 cm. No hydronephrosis. Normal corticomedullary differentiation and cortical thickness. There is a 3.7 cm lower pole cyst. Trace perinephric fluid, unchanged. Left kidney: 12.4 cm. No hydronephrosis. Normal corticomedullary differentiation and cortical thickness. There are few cysts with the largest in the lower pole measuring 8.1 cm. Trace perinephric fluid, unchanged. Bladder: No bladder wall thickening. The bilateral ureteral jets were identified. The prostate is enlarged. IMPRESSION: 1. Stable bilateral renal cysts. 2. No hydronephrosis. 3. Trace perinephric fluid, unchanged. 4. Prostatomegaly. Consultations: ORTHO DR. CASON, ID DR. FUENTES, UROLOGY DR. HARRIS Pending Studies/Follow-Up: PLEASE REFER TO SEPARATE MEDICAL RECONCILIATION SHEET FOR FURTHER DETAILS. PLEASE REFER TO ACCOMPANYING HOSPITAL DISCHARGE SUMMARY. Medication Reconciliation New Medications: Insulin Aspart (Novolog Flexpen) 100 Units/Ml Inj 0 UNITS SC ACHS for 7 Days Potassium Chloride (Micro-K Ext Rel) 10 Meq Capcr 40 MEQ PO HS for 7 Days Continued Medications: Aspirin ([facility] [place] Low Dose Aspiri) 81 Mg Chw 81 MG PO DAILY Atenolol (Tenormin) 25 Mg Tab 75 MG PO DAILY THREE 25 MG TABLETS Chlorthalidone (Chlorthalidone) 25 Mg Tab 25 MG PO DAILY Docusate Sodium (Docusate Sodium) 100 Mg Cap 1 CAP PO BID PRN for Constipation for 15 Days, #30 CAP Finasteride (Finasteride) 5 Mg Tab 5 MG PO DAILY Losartan Potassium (Cozaar) 100 Mg Tab 100 MG PO DAILY Potassium Ext Rel (Klor-Con) 20 Meq Tabcr 60 MEQ PO DAILY THREE 20 MEQ TABLETS Tamsulosin Hcl (Flomax) 0.4 Mg Cap 0.4 MG PO DAILY Discontinued Medications: Glipizide (Glipizide) 5 Mg Tab 2.5 MG PO BID 1/2 OF A 5 MG TABLET TWICE DAILY Metformin Hcl (Glucophage) 500 Mg Tab 500 MG PO TID Admission Information HPI (per Admitting provider): 77-year-old male who presents to the ER with a chief complaint of low back pain. Patient reports increasing back pain for the past 5 weeks. He has been following with outpatient spine orthopedics. He did take a course of oral prednisone at the beginning of the illness which did improve the pain however returned shortly after completing the course. Patient had an outpatient lumbar spine MRI scheduled today which showed L5-S1 osteomyelitis/discitis. Patient was then referred to the ER for further evaluation. Over the past few months patient has been having recurrent urinary tract infections. Initially was seen in the ER on April [address] scan that showed pyelonephritis. Urine culture from that time showed E. coli and patient was treated with Cefdinir. Patient had recurrent urinary symptoms and had repeat urine culture done on May 13 that again showed E. coli and patient was treated with Bactrim. Patient reports that he was recently seen at the [facility] and placed on another antibiotic for urinary tract infection. I called the patient's pharmacy and confirmed that he was given Macrobid on May 29 to take for 7 days. Patient reports he had one episode of fevers chills and diaphoresis with his initial UTI back in April however denies any further fevers or chills. Patient reports increasing back pain. Pain is described as severe. He also has associated pain in his bilateral calves switching from the right side to the left. Patient denies chest pain, shortness of breath, lightheadedness, dizziness, and syncopal events. He denies abdominal pain, nausea, vomiting and unchanged output from his colostomy. He denies any current urinary symptoms. In the ER patient is hemodynamic is stable lab results her white blood cell count of 11,000. UA suggestive of UTI. He was given IV fluids, IV vancomycin, and IV ceftriaxone. Physical Exam (per Admitting): General Appearance: WD/WN, no apparent distress Head: normocephalic, atraumatic Eyes: normal inspection, EOMI, sclerae normal ENT: hearing grossly normal, + pertinent finding (mucous membranes moist) Neck: supple, no JVD, trachea midline Respiratory/Chest: lungs clear, normal breath sounds, no respiratory distress Cardiovascular: regular rate, rhythm, no edema, normal peripheral pulses Abdomen/GI: normal bowel sounds, non tender, soft, no organomegaly Extremities/Musculoskelatal: + pertinent finding (negative straight leg test , strength BLLE 5/5) Neurologic/Psych: no motor/sensory deficits, alert, normal mood/affect, oriented x 3 Skin: normal color, warm/dry Hospital Course L5-S1 Osteomyelitis/Discitis Patient presented on referral by Dr. Post after outpatient MRI showed L5-S1 osteomyelitis/discitis Reports increasing back pain for the past 5 weeks prior to admission Also noted patient has been having recurrent urinary tract infections since April, this is likely the source of the seeding for the osteomyelitis/discitis Blood cultures: No growth Urine culture: (+) E coli resistant to ampicillin Orthopedic spine Dr. Cason consulted ID Dr. Fuentes consulted placed on Ceftriaxone IV x 9 days so far PICC line placed 06/16/17: Lumbar CT:suggestive of acute discitis osteomyelitis at the L5-S1 disc space with erosive changes involving the L5 and S1 vertebral bodies. Dr. Cason from Ortho spine re-evaluated the patient and he recommends transfer to [facility] for possible surgical intervention Dr. Cason spoke with Dr. Jorge Morse and he will follow the patient from Ortho [facility] called [facility], signed out case with hospitalist Dr. Verma who kindly accepted the patient Recurrent UTIs: Has been on 3 courses of antibiotics since April Outpatient MR did show renal cysts Urine culture: E coli Urology consulted Bladder scan: normal- no urinary retention Renal USD: Stable bilateral renal cysts, No hydronephrosis, Trace perinephric fluid, unchanged, Prostatomegaly. Needs outpatient cysto, and possible selective sampling of kidneys in future if Cysto normal Needs follow up with Urologist Dr. Harris as outpatient Chronic Hypokalemia In setting of Chlorthalidone use on potassium supplements 60mg daily at home K 3.4 added potassium 40meqs at HS monitor closely HYPERTENSION Stable Continue atenolol, chlorthalidone, losartan DM II: Hgb A1c 5.06 April 2015 Hold oral agents and utilize SSI while hospitalized Colon CA s/p Colostomy no issues monitor DVT Px: SCDs Disposition: transfer to [facility] Total time spent on discharge = 45 MINS This includes examination of the patient, discharge planning, medication reconciliation, and communication with other providers. Discharge Instructions Discharge Instructions Date of Service Jun 19, 2017. Admission Reason for Admission: Discitis Of Lumbar Region Discharge Discharge Diagnosis / Problem: L5-S1 DISCITIS/OSTEOMYELITIS Discharge Goals Goal(s): Diagnostic testing, Therapeutic intervention Activity Recommendations Activity Level: Assistance Required Therapies: Physical Therapy, Occupational Therapy . Additional Information Patient informed of condition: Yes Advance Directives: No (UNKNOWN) DNR: No (PATIENT IS A FULL CODE) Level of Care: Other ([facility]) Communicable Disease: No Prognosis: Stable Instructions / Follow-Up Instructions / Follow-Up PLEASE REFER TO SEPARATE MEDICAL RECONCILIATION SHEET FOR FURTHER DETAILS. PLEASE REFER TO ACCOMPANYING HOSPITAL DISCHARGE SUMMARY. Current Hospital Diet Patient's current hospital diet: AHA Diet (Heart Healthy), Diabetes Type 2 Diet Discharge Diet Recommended Diet: AHA Diet (Heart Healthy), Diabetes Type 2 Diet Procedures Procedures Performed: PICC LINE PLACEMENT Pending Studies Studies pending at discharge: yes List of pending studies: PLEASE REFER TO HOSPITAL DISCHARGE SUMMARY. Physician Orders On Transfer Special Precautions: PLEASE REFER TO SEPARATE MEDICAL RECONCILIATION SHEET FOR FURTHER DETAILS. PLEASE REFER TO ACCOMPANYING HOSPITAL DISCHARGE SUMMARY. Laboratory Results Hemoglobin A1c Test 06/11/17 05:38 Range/Units Estimated Average Glucose 120 mg/dl Hemoglobin A1c 5.8 H 4.5-5.6 % Medical Emergencies . Who to Call and When: Medical Emergencies: If at any time you feel your situation is an emergency, please call 911 immediately. . Non-Emergent Contact Non-Emergency issues call your: Primary Care Provider, Surgeon, Specialist ( INFECTION SPECIALIST) . . "Provider Documentation" section prepared by Justin Cortes. . Core Measure Problem Core Measures: None
[2017-06-19] MEDS: CEFTRIAXONE SOD INJ 2,000 MG in DEXTROSE 5% 50ML 50 ML IV SCH (13:56)
--- NOTE | 2017-06-19 14:15 | Infectious Disease Progress Nt ---
Progress Note Date of Service Jun 19, 2017. Subjective Pt evaluation today including: conversation w/ patient, physical exam, chart review, lab review, review of studies, conversation w/ big machine consultant, review of inpatient medication list Plans for transfer to [facility] noted. Patient remains afebrile. Pain slightly better. Continues to tolerate antibiotic without apparent difficulty. All Other Systems: Reviewed and Negative Medications Current Inpatient Medications Medications (Trade) Dose Ordered Sig/Faith Route Start Time Stop Time Status Last Admin Dose Admin Acetaminophen (Tylenol Tab) 650 mg Q4H PRN PO 06/10/17 15:00 07/10/17 14:59 06/18/17 16:57 650 MG Ondansetron HCl (Zofran Inj) 4 mg Q6H PRN IV 06/10/17 15:00 07/10/17 14:59 Ceftriaxone Sodium 2000 mg/ Dextrose 70 ml @ 100 mls/hr Q24H IV 06/11/17 14:00 06/20/17 13:59 06/19/17 13:56 100 MLS/HR Glucose (Glucose 40% Gel) 15-30 GRAMS 15 GRAMS... UD PRN PO 06/10/17 15:00 07/10/17 14:59 Glucose (Glucose Chew Tab) 4-8 Tablets 4 Tabl... UD PRN PO 06/10/17 15:00 07/10/17 14:59 Dextrose (Dextrose 50% 50ML Syringe) 25-50ML OF 50% DW IV FOR... UD PRN IV 06/10/17 15:00 07/10/17 14:59 Glucagon (Glucagon Inj) 1 mg UD PRN SQ 06/10/17 15:00 07/10/17 14:59 Aspirin (Aspirin Chew) 81 mg DAILY PO 06/11/17 08:00 07/11/17 08:59 06/19/17 08:54 81 MG Atenolol (Tenormin Tab) 75 mg DAILY PO 06/11/17 08:00 07/11/17 08:59 06/19/17 08:54 75 MG Chlorthalidone (Hygroton Tab) 25 mg DAILY PO 06/11/17 08:00 07/11/17 08:59 06/19/17 08:54 25 MG Docusate Sodium (coLACE CAP) 100 mg BID PRN PO 06/10/17 15:15 07/10/17 15:14 Finasteride (Proscar Tab) 5 mg DAILY PO 06/11/17 08:00 07/11/17 08:59 06/19/17 08:55 5 MG Losartan Potassium (coZAAR TAB) 100 mg DAILY PO 06/11/17 08:00 07/11/17 08:59 06/19/17 08:54 100 MG Potassium Chloride (Klor-Con Tab) 60 meq DAILY PO 06/11/17 08:00 07/11/17 08:59 06/19/17 08:55 60 MEQ Tamsulosin HCl (Flomax Cap) 0.4 mg DAILY PO 06/11/17 08:00 07/11/17 08:59 06/19/17 08:54 0.4 MG Oxycodone HCl (Roxicodone Immediate Rel Tab) 5 mg Q6H PRN PO 06/10/17 17:30 06/24/17 17:29 06/19/17 13:57 5 MG Insulin Aspart (novoLOG ASPART) SLIDING SCALE If C... ACHS SC 06/11/17 17:30 07/11/17 17:29 06/19/17 12:20 7 UNITS Heparin Sodium (Porcine) (Heparin 10 Unit/ ml 5 ml Flush) 5 ml PRN PRN FLUSH 06/15/17 19:15 07/15/17 19:14 06/19/17 06:00 5 ML Potassium Chloride (Klor-Con M10) 40 meq HS PO 06/19/17 22:00 07/19/17 21:59 Objective Vital Signs Date Time Temp Pulse Resp B/P (MAP) Pulse Ox O2 Delivery O2 Flow Rate FiO2 06/19/17 08:00 Room Air 06/19/17 07:49 36.6 73 20 148/81 (103) 94 Room Air 06/18/17 23:20 36.4 60 18 129/77 (94) 96 Room Air 06/18/17 23:20 Room Air 06/18/17 16:30 Room Air 06/18/17 15:06 36.6 61 20 118/75 (89) 94 Room Air Physical Exam General Appearance: WD/WN, no apparent distress Eyes: normal inspection, EOMI, sclerae normal ENT: normal ENT inspection, hearing grossly normal, pharynx normal Neck: supple, no adenopathy, thyroid normal, trachea midline Respiratory/Chest: chest non-tender, lungs clear, normal breath sounds, no respiratory distress Cardiovascular: regular rate, rhythm, no gallop, no murmur Abdomen: normal bowel sounds, non tender, soft, no organomegaly Extremities: non-tender, no calf tenderness Neurologic/Psychiatric: alert, oriented x 3 Skin: normal color, warm/dry, no rash Lymphatic: no adenopathy Laboratory Results Last 24 Hours Test 06/18/17 17:07 06/18/17 20:06 06/19/17 05:59 06/19/17 08:04 Bedside Glucose 118 mg/dl 146 mg/dl 181 mg/dl Sodium Level 135 mmol/L Potassium Level 3.4 mmol/L Chloride Level 101 mmol/L Carbon Dioxide Level 25 mmol/L Anion Gap 9.0 mmol/L Blood Urea Nitrogen 16 mg/dl Creatinine 0.85 mg/dl Est Creatinine Clear Calc Drug Dose 84.7 ml/min Estimated GFR () 98.1 Estimated GFR (Non- 84.6 BUN/Creatinine Ratio 18.3 Random Glucose 125 mg/dl Calcium Level 9.3 mg/dl Magnesium Level 2.0 mg/dl Test 06/19/17 11:22 Bedside Glucose 120 mg/dl Assessment and Plan 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 Likely source of this infection would be persistent urinary tract infection. Isolate is sensitive to ceftriaxone, so this would provide adequate coverage. Will likely need 6-8 weeks of IV antibiotics. For transfer later today.
[2017-06-19 15:17] VITALS: BP 107/67; PULSE 62; TEMP 36.7; O2SAT 95
[2017-06-19 16:22] VITALS: BP 107/67; PULSE 62; TEMP 36.7; O2SAT 95
[2017-06-19] MEDS ORDERED: POTASSIUM CHLORIDE 10 MEQ TABCR PO SCH (22:00)
== END 2017-06-19 20:15 | disposition short-term general hospital (02) | DRG 638 ==
LOC: C.EDB 11:39 → C.MS4W 14:50 → ENRESERV 15:08
PROVIDERS: ADMIT Hospitalist; ATTEND Internal Medicine
PROC: 02HV33Z Insertion of Infusion Device into Superior Vena Cava, Percutaneous Approach (ICD-10-PCS; principal; 2017-06-14)
DX: E11.69 Type 2 diabetes mellitus with other specified complication (principal); M46.27 Osteomyelitis of vertebra, lumbosacral region; M46.47 Discitis, unspecified, lumbosacral region; N30.91 Cystitis, unspecified with hematuria; B96.20 Unspecified Escherichia coli [E. coli] as the cause of diseases classified elsewhere; Z16.11 Resistance to penicillins; E87.6 Hypokalemia; M79.662 Pain in left lower leg; N40.1 Benign prostatic hyperplasia with lower urinary tract symptoms; I10 Essential (primary) hypertension; Z87.891 Personal history of nicotine dependence; Z79.82 Long term (current) use of aspirin; Z79.84 Long term (current) use of oral hypoglycemic drugs; Z79.899 Other long term (current) drug therapy; Z93.3 Colostomy status; Z88.8 Allergy status to other drugs, medicaments and biological substances